=== PATIENT | male | born 1940 | race Caucasian/White ===

== ENCOUNTER 2017-06-11 10:53 | Outpatient (POV) | payer MEDICARE, OTHER, SELFPAY | END 2017-06-11 12:09 | disposition home or self-care (01) | PROVIDERS: Visit Provider Podiatrist | DX: E11.51 Type 2 diabetes mellitus with diabetic peripheral angiopathy without gangrene (principal); L60.0 Ingrowing nail | CPT/HCPCS: 99203; G0127 ==

== ENCOUNTER → 2017-06-26 | Outpatient (POV) | payer MEDICARE, OTHER, SELFPAY | PROVIDERS: Visit Provider Podiatrist ==

== ENCOUNTER 2017-07-15 07:34 | Day surgery (SDC) | payer MEDICARE, OTHER, SELFPAY ==
[2017-07-15] VITALS (24 sets, daily range): BP systolic 112–165; BP diastolic 63–99; PULSE 59–120; RESP 12–23; TEMP 36.1–36.7; O2SAT 93–98; BMI 39.0
--- NOTE | 2017-07-15 07:18 | IR_ITS ---
CARDIAC CATHETERIZATION DATE OF CATHETERIZATION:07/15/2017 2:00 PM PROCEDURES: 1. Left heart catheterization 2. Left ventriculogram 3. Selective coronary angiogram 4. Selective engagement of the left internal mammary artery with angiography 5. Selective engagement of the saphenous vein graft to the diagonal artery with angiography 6. Selective engagement of the saphenous vein graft to the circumflex artery with angiography 7. Bilateral selective renal angiogram 8. Drug-eluting stent deployment into the mid LAD via the left internal mammary artery graft INDICATION FOR TEST: 1. Angina pectoris class III 2. Coronary artery disease 3. History of coronary bypass surgery 4. Acute renal failure creatinine 2.0 5. Severe hypertension suspect renal artery stenosis 6. Renovascular hypertension Informed consent was obtained prior to the procedure. COMPLICATIONS: None ESTIMATED BLOOD LOSS: Less than 10 ml. TECHNIQUE: One percent lidocaine was used to anesthetize the right groin. The right femoral artery was accessed via the Seldinger technique. A 4-Turkish sheath was placed in the right femoral artery. The JL 5 JR4 catheter were used perform diagnostic left heart catheterization left ventriculogram and selective coronary angiogram. The JR4 catheter was used to selectively intubate each saphenous vein graft as well as left internal mammary artery and the bilateral renal arteries. At the end of the diagnostic angiogram the 5 Turkish sheath was exchanged for a 6 Turkish sheath and 12,000 units of heparin was administered intravenously giving an ACT of 363 seconds. A AN guide catheter was used intubate the left internal mammary artery and a choice PT floppy wire was placed into the LAD via the AN graft. A 2.25 x 12 mm resolute [place] stent was deployed at 22 shaq reducing the 99% stenosis to 0%. MERLIN-3 flow was present before and after the procedure. At the end the procedure the sheath was removed gloves were changed and is reprepped good hemostasis was achieved using Perclose device patient transferred to the postop holding area in stable condition. ANGIOGRAPHIC RESULTS: 1. The left main artery normal 2. The left anterior descending artery proximally has 10% luminal irregularities and is occluded after the second septal patient liaison. The first diagonal artery is a medium-size vessel and has 20 and 30% stenoses 3. The circumflex artery is nondominant and has stents in the proximal segment extending into the first obtuse marginal artery. The first obtuse marginal artery is occluded with no competitive flow distally, two additional small obtuse marginal arteries are identified with minimal stenosis 4. The right coronary artery is a large dominant vessel and has proximal 30% mid vessel 20 and 30% stenoses throughout with distal 30% stenoses. 5. The [place]O ventriculogram reveals dilated left ventricle with ejection fraction of 40% 6. The left ventricular end-diastolic pressure 25 mmHg 7. The left internal mammary artery is widely patent to the LAD. Immediately distal to this stenosis is a 99% stenosis 8. The saphenous vein graft to the diagonal artery is ostially occluded 9. The saphenous vein graft to the first obtuse marginal artery has 50% proximal and mid vessel stenoses 10. The left renal artery singular and normal 11. The right renal artery singular and has an ostial 20% stenosis IMPRESSION: 1. Critical disease in the mid LAD immediately distal to the AN anastomosis 2. Moderate left ventricular dilatation with reduced ejection fraction 3. Moderately elevated LVEDP 4. Successful stenting of the mid LAD critical disease reduced to 0% with 1 drug-eluting stent 5. Nonflow limiting bilateral renal artery stenosis PLAN: 1. Aspirin Plavix
[2017-07-15 08:21] LABS: Basophils % 0.4 % (0.1-2.0); Eosinophils # 0.2 K/mm3 (0.0-0.4); Eosinophils % 3.6 % (0.1-12.0); Hematocrit 33.2 % (42.0-52.0); Hemoglobin 10.6 g/dL (14.1-18.0); Lymphocytes # 1.5 K/mm3 (0.7-4.5); Lymphocytes % 34.4 K/mm3 (10-50); Mean Corpuscular HGB Conc 31.8 g/dL (31.8-35.4); Mean Corpuscular Hemoglobin 31.5 pg (27.0-31.2); Mean Platelet Volume 10.4 fl (7.4-10.4); Monocytes # 0.3 K/mm3 (0.1-1.0); Monocytes % 7.6 % (1.7-9.3); Neutrophils # 2.4 K/mm3 (1.8-7.8); Platelet Count 117 K/mm3 (142-424); Red Blood Count 3.35 M/mm3 (4.60-6.20); White Blood Count 4.4 K/mm3 (4.8-10.8)
[2017-07-15 08:30] LABS: Anion Gap 11.8 mEq/L (5-15); Blood Urea Nitrogen 32 mg/dL (7-18); Carbon Dioxide 32 mmol/L (21.0-32.0); Chloride 105 mmol/L (98-107); Creatinine Clearance Estimated 55 mL/min (0-300); Creatinine,Serum 2.03 mg/dL (0.70-1.30); Estimated Glomerular Filt Rate 32 ml/min (>60); GFR (African American) 39 ML/MIN (>60); Glucose 143 mg/dL (74-106); Potassium 3.8 mmoL/L (3.5-5.1); Sodium 145 mmol/L (136-145)
--- NOTE | 2017-07-15 15:38 | SUR.PHASEII ---
Report called to Yessy Arevalo, transported to second floor in stable condition, right femoral site dsg with scant amount of ss drainage noted, no hematoma noted.
--- NOTE | 2017-07-15 15:40 | PC.NURSE ---
PT ARRIVED TO FLOOR, REPORT GIVEN FROM JC IN [facility], VSS, GROIN SITE WITH SMALL SEROUSANGUINOUS DRAINAGE WHICH WAS PRESENT WITH ARRIVAL TO FLOOR, NO CHANGE HAS BEEN NOTED SINCE THAT FIRST ASSESSMENT. PT HAS AMBULATED TO AND FROM BATHROOM WITH NO PROBLEMS NOTED AND TOLERATES WELL. WILL CONTINUE TO MONITOR
[2017-07-15 15:49] LABS: CATHL Activated Clotting Time 362 SEC (74-125)
[2017-07-16] VITALS: BP 128/71; PULSE 67; PULSE 70; RESP 18; O2SAT 90
[2017-07-16 02:00] VITALS: BP 120/69; PULSE 73; O2SAT 90
[2017-07-16 04:00] VITALS: BP 122/63; PULSE 64; TEMP 36.7; O2SAT 92
--- NOTE | 2017-07-16 04:32 | PC.NURSE ---
ASYMPTOMATIC ISREAL CARDIA NOTED X1 AT BEGINNING OF SHIFT, HR DROPPED LOW 38, ONCE TELE ALARMED, RN ASSESSED PT, NO COMPLAINTS STATED AND PT STATED SOMETIMES MY HEART GETS LOW LIKE THAT, IT HAS DONE IT BEFORE. CONTROLLED AFIB NOTED PER TITLE I INSTRUCTIONAL ASSISTANT. R GROIN SITE ASSESSED Q2H, BLOODY DRAINAGE MARKED ON DRESSING FROM DAY SHIFT RN AND NO FURTHER CHANGES NOTED IN DRAINAGE ON DRESSING. NO BRUISING, NO S/S OF INFECTION NOTED ON R GROIN SITE. ON PALPATION OF SITE, SOFT AND NO COMPLAINTS OF TENDERNESS. SKIN IS PINK AND WARM PER PALPATION, PEDAL PULSE NOTED +2 (BILAT), CAP REFILL <3SEC (BLE, BUE). ADEQUATE UO THIS SHIFT. CPAP FROM HOME USED WHILE ASLEEP AND TOLERATED WELL. VSS. WILL CONTINUE TO MONITOR.
[2017-07-16 06:00] VITALS: BP 146/82; PULSE 93; RESP 18; O2SAT 92
[2017-07-16 07:27] LABS: Anion Gap 10.8 mEq/L (5-15); Blood Urea Nitrogen 26 mg/dL (7-18); Carbon Dioxide 30 mmol/L (21.0-32.0); Chloride 107 mmol/L (98-107); Creatinine Clearance Estimated 62 mL/min (0-300); Estimated Glomerular Filt Rate 37 ml/min (>60); GFR (African American) 44 ML/MIN (>60); Glucose 117 mg/dL (74-106); Potassium 3.8 mmoL/L (3.5-5.1); Sodium 144 mmol/L (136-145)
--- NOTE | 2017-07-16 07:32 | PC.NURSE ---
REPORT GIVEN TO LISSETTE RN
--- NOTE | 2017-07-16 09:16 | PC.NURSE ---
PT DC, SCOTTIE DID DC INSTRUCTIONS, MYSELF REMOVED A 20 G ANGIOCATH IV FROM LEFT AC, PT TOLERATED WELL. DENIES ANY ISSUES AT THIS TIME.
--- NOTE | 2017-07-23 10:59 | PC.NURSE ---
post procedure call made, pt states he has already had f/u appt and is doing ok, denies any questions/concerns at this time
== END 2017-07-16 09:16 | disposition admitted as inpatient to this hospital (09) ==
LOC: CATHLAB 07:36
PROVIDERS: PCP Family Medicine; Visit Provider Internal Medicine
DX: I25.119 Atherosclerotic heart disease of native coronary artery with unspecified angina pectoris (principal); Z95.1 Presence of aortocoronary bypass graft; N17.9 Acute kidney failure, unspecified; I15.0 Renovascular hypertension; I70.1 Atherosclerosis of renal artery
CPT/HCPCS: 36252; 36415; 80048; 85025; 85347; 92928; 93459; 99152; 99153; C1725; C1760; C1769; C1876; C1894; C9600; J1644; Q9967

== ENCOUNTER → 2017-07-21 14:02 | Outpatient (CLI) | payer MEDICARE, OTHER, SELFPAY ==
[2017-07-21 15:22] LABS: Blood Urea Nitrogen 29 mg/dL (7-18); Carbon Dioxide 31 mmol/L (21.0-32.0); Chloride 104 mmol/L (98-107); Creatinine,Serum 2.19 mg/dL (0.70-1.30); Estimated Glomerular Filt Rate 29 ml/min (>60); GFR (African American) 35 ML/MIN (>60); Glucose 145 mg/dL (74-106); Sodium 144 mmol/L (136-145)
== END ==
PROVIDERS: PCP Family Medicine; Visit Provider Internal Medicine
DX: R06.00 Dyspnea, unspecified (principal); R06.09 Other forms of dyspnea; I25.118 Atherosclerotic heart disease of native coronary artery with other forms of angina pectoris; N18.2 Chronic kidney disease, stage 2 (mild); I50.23 Acute on chronic systolic (congestive) heart failure
CPT/HCPCS: 36415; 80048; 83880

== ENCOUNTER → 2017-08-03 09:26 | Outpatient (CLI) | payer MEDICARE, OTHER, SELFPAY ==
[2017-08-03 12:03] LABS: Anion Gap 14.6 mEq/L (5-15); Blood Urea Nitrogen 37 mg/dL (7-18); Carbon Dioxide 32 mmol/L (21.0-32.0); Chloride 104 mmol/L (98-107); Creatinine,Serum 2.02 mg/dL (0.70-1.30); Estimated Glomerular Filt Rate 32 ml/min (>60); GFR (African American) 39 ML/MIN (>60); Glucose 133 mg/dL (74-106); Potassium 3.6 mmoL/L (3.5-5.1); Sodium 147 mmol/L (136-145)
== END ==
PROVIDERS: PCP Family Medicine; Visit Provider Internal Medicine
DX: I50.23 Acute on chronic systolic (congestive) heart failure (principal)
CPT/HCPCS: 36415; 80048

== ENCOUNTER 2017-08-20 08:10 | Day surgery (SDC) | payer MEDICARE, OTHER, SELFPAY ==
[2017-08-20] VITALS (9 sets, daily range): BP systolic 112–142; BP diastolic 62–88; PULSE 91–121; RESP 16–18; TEMP 36.3–36.8; O2SAT 93–97; BMI 38.3
--- NOTE | 2017-08-20 10:58 | P.PN_ITS ---
[facility] Anesthesia Checklist - Structural Data Admitted From: Home Planned Operative Procedure/s: pacemaker Consent for Planned Operative Procedure(s) Verified: Yes Verified Documents: Surgical Consent - Airway Assessment C-Spine Mobility Assessed: Yes TMJ Mobility Assessed: Yes Dentition: Dentures-good fit - Anesthesia Plan Anesthesia Risk discussed: Yes Anesthesia Plan: Verified ASA Class: III Anesthesia Type: [facility] Anesthesia HX Medical History: Reports:: Atrial Fibrillation, Cancer (SKIN), Congestive Heart Failure, Coronary Artery Disease, Diabetes Mellitus Type 2, Hyperlipidemia, Hypertension, MRSA (KNEE), Renal Disease Denies:: Diabetes Mellitus Type 1, Internal Pacemaker, Seizures Other Medical History: Reports: Cataracts. Denies: Blood Transfusion Reaction Laterality Cases: Right: Total Knee Replacement (x4), Bilateral: Arthroscopy Knee Other Surgeries: Yes: Open Heart Surgery, Skin Cancer Excision, Other. No: Pacemaker Amputation: No Fractures: No *Family Hx:: Heart Attack, Hypertension
--- NOTE | 2017-08-20 12:05 | SUR.PREOP ---
PATIENT ASSISTED TO BATHROOM AND RETURNED TO BED. PATIENT STABLE NO COMPLAINTS AT THIS TIME.
--- NOTE | 2017-08-20 13:41 | XR_ITS ---
XR chest portable HISTORY: ITS.REASON: pacemaker placement ORDERING PHYSICIAN: Dennis Avina MD PATIENT AGE: 77 years COMPARISON: 12/01/2016 FINDINGS: There is been insertion of a bipolar pacer from left subclavian approach in good position. No evidence of pneumothorax. There is cardiomegaly in this patient that has had a prior CABG. Patchy density is present in the right upper lobe and may be due to an area of pneumonia or atelectasis. IMPRESSION: 1. Satisfactory pacemaker placement without evidence of complication. 2. Atelectasis or infiltrate in the right upper lobe
--- NOTE | 2017-08-20 16:16 | SUR.OPER ---
1320: pt synchronized cardioversion at 200 joules
[2017-09-03 14:55] LABS: POC Glucose,Bedside 126 mg/dL (70-110)
--- NOTE | 2017-09-09 12:08 | HMH.PACER ---
[facility] Pacemaker - Pacemaker Placement Date of Procedure:: 08/20/17 Time of Procedure:: 09:00 Procedure Performed:: 1. Pocket formation for permanent pacemaker 2. Placement of atrial sensing and pacing lead into the right atrial appendage 3. Placement of ventricular sensing and pacing lead into the right ventricular apex 4. Placement of permanent dual chamber pacemaker Preoperative Diagnosis:: Symptomatic Bradycardia Complications:: None Estimated Blood Loss (ml): 10 Technique:: 1% Lidocaine with epinephrine used to anesthetize the left anterior aspect of the chest.Scalpel was used to make the initial cutaneous incision while electrocautery was used to dissect down into the fascia. The fascia was lifted off the pectoralis muscle and digitally manipulated creating a pocket for the pacemaker. The patient was then placed in Trendelenburg position and the subclavian vein was accessed via the Selinger technique. A 7 Romansh sheath was placed under fluoroscopic guidance into the subclavian vein. Following this, an additional wire was placed into the sheath. Now, with two wires inside the 7 Romansh sheath, this sheath was removed, maintaining the two wires in the subclavian vein. The sheath and dilator was then placed over one of the wires while keeping the other wire in place within the subclavian vein. The dilator was removed from the sheath. Using fluoroscopic guidance, the ventricular lead was placed into the right ventricular apex, screwed and secured into place. Electronic interrogation proved acceptable thresholds and voltage within the lead. Using 3-0 silk, the ventricular lead was then secured into place. Lead was secured to the fascia using the 3-0 silk. Following this, the sheath was pealed away. An additional 7 Romansh fresh sheath and dilator was placed over the existing wire. Using fluoroscopic guidance, the atrial lead was then placed into the right atrial appendage and screwed and secured in place. Electrical interrogation demonstrated acceptable thresholds and voltage numbers. The atrial lead was then secured into place using 3-0 silk and then the lead was finally secured to the fascia. With both the atria and ventricular leads in place with acceptable thresholds and sensitivity, the atrial and ventricular leads were placed into the pacemaker generator. Pacemaker generator was then secured to the fascia using 3-0 silk. 1 gram of Ancef was used to flush the pocket. Following the pacemaker being secured to the fascia and in place, Monocryl was used to close the subcutaneous layers while suzie were used to close the cutaneous layer. A pressure dressing was placed and the patient was transferred to the postop holding area in stable condition for postoperative care. - Interrogation Narrative: P wave measures .5-1.0 AF ( cardioversion) with an lead impedance 410 R wave measures 7-8 mV with a lead impedance 560 ohms and threshold of .5 and pulse width .4 ms DDDR mode with base tracking of 70 and maximum track of 110 Generator model number [id number] serial number [id number] Atrial lead model number [id number] serial number [id number] Ventricular lead model number [id number] serial number [id number] Impression:: 1. Successful pocket formation for permanent pacemaker 2. Successful placement of atrial sensing and pacing lead into the right atrial appendage 3. Successful placement of ventricular sensing and pacing lead into the right ventricular apex 4. Successful placement of permanent dual chamber pacemaker Plan: Postoperative wound care
--- NOTE | 2017-09-09 12:12 | P.PCN_ITS ---
[facility] Pacemaker - Pacemaker Placement Date of Procedure:: 08/20/17 Time of Procedure:: 09:00 Procedure Performed:: 1. Pocket formation for permanent pacemaker 2. Placement of atrial sensing and pacing lead into the right atrial appendage 3. Placement of ventricular sensing and pacing lead into the right ventricular apex 4. Placement of permanent dual chamber pacemaker Preoperative Diagnosis:: Symptomatic Bradycardia Complications:: None Estimated Blood Loss (ml): 10 Technique:: 1% Lidocaine with epinephrine used to anesthetize the left anterior aspect of the chest.Scalpel was used to make the initial cutaneous incision while electrocautery was used to dissect down into the fascia. The fascia was lifted off the pectoralis muscle and digitally manipulated creating a pocket for the pacemaker. The patient was then placed in Trendelenburg position and the subclavian vein was accessed via the Selinger technique. A 7 Chinese sheath was placed under fluoroscopic guidance into the subclavian vein. Following this, an additional wire was placed into the sheath. Now, with two wires inside the 7 Chinese sheath, this sheath was removed, maintaining the two wires in the subclavian vein. The sheath and dilator was then placed over one of the wires while keeping the other wire in place within the subclavian vein. The dilator was removed from the sheath. Using fluoroscopic guidance, the ventricular lead was placed into the right ventricular apex, screwed and secured into place. Electronic interrogation proved acceptable thresholds and voltage within the lead. Using 3-0 silk, the ventricular lead was then secured into place. Lead was secured to the fascia using the 3-0 silk. Following this, the sheath was pealed away. An additional 7 Chinese fresh sheath and dilator was placed over the existing wire. Using fluoroscopic guidance, the atrial lead was then placed into the right atrial appendage and screwed and secured in place. Electrical interrogation demonstrated acceptable thresholds and voltage numbers. The atrial lead was then secured into place using 3-0 silk and then the lead was finally secured to the fascia. With both the atria and ventricular leads in place with acceptable thresholds and sensitivity, the atrial and ventricular leads were placed into the pacemaker generator. Pacemaker generator was then secured to the fascia using 3-0 silk. 1 gram of Ancef was used to flush the pocket. Following the pacemaker being secured to the fascia and in place, Monocryl was used to close the subcutaneous layers while suzie were used to close the cutaneous layer. A pressure dressing was placed and the patient was transferred to the postop holding area in stable condition for postoperative care. - Interrogation Narrative: P wave measures .5-1.0 AF ( cardioversion) with an lead impedance 410 R wave measures 7-8 mV with a lead impedance 560 ohms and threshold of .5 and pulse width .4 ms DDDR mode with base tracking of 70 and maximum track of 110 Generator model number [id number] serial number [id number] Atrial lead model number [id number] serial number [id number] Ventricular lead model number [id number] serial number [id number] Impression:: 1. Successful pocket formation for permanent pacemaker 2. Successful placement of atrial sensing and pacing lead into the right atrial appendage 3. Successful placement of ventricular sensing and pacing lead into the right ventricular apex 4. Successful placement of permanent dual chamber pacemaker Plan: Postoperative wound care
== END 2017-08-20 16:15 | disposition home or self-care (01) ==
PROVIDERS: PCP Family Medicine; Visit Provider Internal Medicine
DX: I48.92 Unspecified atrial flutter (principal); I11.0 Hypertensive heart disease with heart failure; I50.23 Acute on chronic systolic (congestive) heart failure; E11.9 Type 2 diabetes mellitus without complications; I48.2 Chronic atrial fibrillation
CPT/HCPCS: 33208; 71045; 82962; 96374; C1785; C1898

== ENCOUNTER → 2017-09-02 09:54 | Outpatient (CLI) | payer MEDICARE, OTHER, SELFPAY ==
--- NOTE | 2017-09-02 10:04 | CA_ITS ---
PROCEDURE: 2-D M-mode and color Doppler study INDICATIONS FOR THE TEST: Chest pain COPD+ Heart Murmur+ Tobacco Smoking Palpitations+ Fatigue+ Syncope Edema Hypertension+Diabetes Mellitus+ Rheumatic Fever SOB MARTINS+Obesity+Hyperlipidemia+ Family History HD Additional History afib, CAD, CHF, tachycardia, PAD, DAVID, RBBB, Pacemaker PATIENT INFORMATION HEIGHT: 71 WEIGHT: 280 GENDER: Male B/P: 117/73 2-D/M-MODE INTERPRETATION: 2-D MEASUREMENTS OBSERVED VALUES IN CMS Right Ventricular Dimension (RVDd) 2.6 Interventricular Septum (Thickness)(IVsd) 1.0 Left Ventricular Internal Dimensions(LVIDd) 7.1 Left Ventricular Posterior Wall (Thickness)(LVPWd) 1.2 Aortic Root 2.9 Aortic Cusp Separation 2.0 Left Atrial Dimensions (LAD) 6.6 2D 1. Left atrium is moderately enlarged, left ventricle is mildly dilated, there is mild concentric left ventricular hypertrophy, visually estimated ejection fraction proximally 40%, left ventricle appears to be globally hypokinetic, endocardial surfaces are poorly visualized. 2. The right atrium is moderately enlarged, right ventricle is mildly dilated with normal contractility, there is a pacemaker lead seen in the right atrium and right ventricle. 3. The aortic valve is minimally thickened and fibrosed. 2. The mitral and tricuspid valve leaflets are minimally thickened. 5. The pulmonic valve is poorly visualized. 6. No significant pericardial effusion. DOPPLER INTERROGATION: Doppler interrogation of the aortic, mitral and tricuspid valve is presence of trace aortic, moderate mitral and tricuspid regurgitation, tricuspid regurgitant jet velocity insufficient for calculation of the right ventricular systolic pressure. CONCLUSION: 1. Technically difficult study because of the patient's factor and poor acoustic windows 2. Moderate biatrial enlargement, mildly dilated left ventricle, mild concentric left ventricular hypertrophy, visually estimated ejection fraction approximately 40%, left ventricle is globally hypokinetic, endocardial surfaces are poorly visualized, superimposed segmental wall motion abnormalities cannot be excluded. 3. Trace aortic, moderate mitral and tricuspid regurgitation 4. No significant pericardial effusion noted.
== END ==
PROVIDERS: PCP Family Medicine; Visit Provider Internal Medicine
DX: I50.23 Acute on chronic systolic (congestive) heart failure (principal); R00.0 Tachycardia, unspecified; I70.1 Atherosclerosis of renal artery; I73.9 Peripheral vascular disease, unspecified; I48.2 Chronic atrial fibrillation; Z95.0 Presence of cardiac pacemaker; I45.10 Unspecified right bundle-branch block; I25.10 Atherosclerotic heart disease of native coronary artery without angina pectoris; I11.0 Hypertensive heart disease with heart failure; E78.4 Other hyperlipidemia; E11.9 Type 2 diabetes mellitus without complications
CPT/HCPCS: 93306

== ENCOUNTER → 2017-10-12 14:26 | Outpatient (POV) | payer MEDICARE, OTHER, SELFPAY | PROVIDERS: PCP Family Medicine; Visit Provider Nurse Practitioner Acute Care | DX: Z00.00 Encounter for general adult medical examination without abnormal findings (principal) ==

== ENCOUNTER 2017-10-25 10:38 | Observation (INO) ==
[2017-10-25 11:19] LABS: Basophils % 0.5 % (0.1-2.0); Eosinophils # 0.1 K/mm3 (0.0-0.4); Eosinophils % 1.2 % (0.1-12.0); Hematocrit 33.4 % (42.0-52.0); Hemoglobin 10.3 g/dL (14.1-18.0); Lymphocytes # 1.1 K/mm3 (0.7-4.5); Lymphocytes % 22.6 K/mm3 (10-50); Mean Corpuscular HGB Conc 30.7 g/dL (31.8-35.4); Mean Corpuscular Hemoglobin 31.4 pg (27.0-31.2); Mean Platelet Volume 9.9 fl (7.4-10.4); Monocytes # 0.4 K/mm3 (0.1-1.0); Monocytes % 8.4 % (1.7-9.3); Neutrophils # 3.2 K/mm3 (1.8-7.8); Neutrophils % 67.4 % (37.0-80.0); Platelet Count 179 K/mm3 (142-424); Red Blood Count 3.28 M/mm3 (4.60-6.20); Red Cell Distribution Width 14.2 % (11.5-17.5); White Blood Count 4.7 K/mm3 (4.8-10.8)
[2017-10-25 11:26] LABS: INR 1.19 (0.9-1.1); Prothrombin Time 12.9 seconds (9.4-11.8)
[2017-10-25 11:30] LABS: Albumin Level 3.6 gm/dL (3.4-5.0); Albumin/Globulin Ratio 0.9 (1.1-1.8); Anion Gap 13.3 mEq/L (5-15); Bilirubin,Total 0.4 mg/dL (0.2-1.0); Calcium 9.2 mg/dL (8.5-10.1); Globulin 3.9 gm/dl (1.3-3.2); Potassium 4.3 mmoL/L (3.5-5.1); Total Protein,Serum 7.5 gm/dL (6.4-8.2)
--- NOTE | 2017-10-25 11:56 | Emergency Department Note ---
ED Disposition Clinical Impression: Hypoxia Community acquired pneumonia Qualifiers: Laterality: right Lung location: upper lobe of lung Qualified Code(s): J18.1 - Lobar pneumonia, unspecified organism Disposition: Still a Patient Condition on Discharge: Fair Referrals: Edy Dhillon MD [Primary Care Provider] - - Critical Care Critical Care Time: No Attestation: On 10/25/17, the high probability of a clinically significant, sudden or life threatening deterioration of the following system(s) required my full and direct attention, intervention and personal management. The time I documented below is in addition to time spent performing reported procedures but includes the following listed in this critical care notation. Medical Decision Making - Jarek Inquiry Pt receiving controlled substance: No Vital Signs: 10/25/17 10:39 10/25/17 11:39 Temperature 98.2 F Temperature Source Oral Pulse Rate [Left Radial] 82 83 Respiratory Rate 20 18 Blood Pressure [Right Arm] 121/69 121/73 Blood Pressure Mean [Right Arm] 86 89 Blood Pressure Source [Right Arm] Automatic Cuff Blood Pressure Position [Right Arm] Sitting 02 Sat by Pulse Oximetry 100 100 Oxygen Delivery Method Nasal Cannula Nasal Cannula Oxygen Flow Rate (LPM) 4 4 - Lab Data Lab Results 10/25/17 11:00: WBC 4.7 L, RBC 3.28 L, Hgb 10.3 L, Hct 33.4 L, MCV 102.0 H, MCH 31.4 H, MCHC 30.7 L, RDW 14.2, Plt Count 179, MPV 9.9, Neut % (Auto) 67.4, Lymph % (Auto) 22.6, [place] % (Auto) 8.4, Eos % (Auto) 1.2, Baso % (Auto) 0.5, Neut # (Auto) 3.2, Lymph # (Auto) 1.1, [place] # (Auto) 0.4, Eos # (Auto) 0.1, Baso # (Auto) 0.0 10/25/17 11:00: Sodium 141, Potassium 4.3, Chloride 102, Carbon Dioxide 30, Anion Gap 13.3, BUN 26 H, Creatinine 1.98 H, Estimated Creat Clear 54, Estimated GFR 33 L, Est GFR ( Amer) 40 L, Glucose 220 H, Calcium 9.2, Total Bilirubin 0.4, AST 11 L, ALT 15, Alkaline Phosphatase 58, Total Protein 7.5, Albumin 3.6, Globulin 3.9 H, Albumin/Globulin Ratio 0.9 L 10/25/17 11:00: PT 12.9 H, INR 1.19 H 10/25/17 11:00: B-Natriuretic Peptide 791 H 10/25/17 11:50: Urine Color Yellow, Urine Appearance Clear, Urine pH 5.0, Ur Specific [place] 1.015, Urine Protein Negative, Urine Glucose (UA) Negative, Urine Ketones Negative, Urine Blood Negative, Urine Nitrate Negative, Urine Bilirubin Negative, Urine Urobilinogen 0.2, Ur Leukocyte Esterase Negative, Urine WBC Occasional, Ur Squamous Epith Cells Occasional, Urine Bacteria 1+ Result diagrams: 10/25/17 11:00 10/25/17 11:00 Orders (Tests/Meds): ED MEDICATIONS Generic Name Dose Route Start Last Admin Trade Name Freq PRN Reason Stop Dose Admin Sodium Chloride 3 ml 10/25/17 12:47 Sodium Choride 3ml Neb Soln IH 10/25/17 12:48 ONCE ONE ORDERS Category Date Time Status Lactic Acid Stat Lab 10/25/17 12:47 Ordered Sputum Culture & Gram Stain Stat Micro 10/25/17 12:47 Ordered Wound Culture and Gram Stain Stat Micro 10/25/17 12:47 Ordered - Radiology Data #1 Image(s): Chest Image Reviewed: Yes I have reviewed radiologist's interpretation Ill-defined opacity in the right suprahilar region extending to the right upper lobe suggesting focal pneumonic infiltrate. Slight lateral elevation of the right hemidiaphragm could be a subpulmonic pleural effusion. Left lung field is clear. Mild cardiomegaly. Prior CABG. Pacemaker with 3 electrodes. - ECG Data Tracing #1 EKG interpreted by Tod Conner MD: Rhythm: Ventricular paced rhythm Rate: 81 Single PVC No evidence of acute ischemia or injury Medical Decision Narrative: 12:40 PM: I have discussed the case with Dr. Stanley for Dr. Dhillon who agrees to admit the patient to the hospital. We discussed the patient's clinical information, including history, exam, laboratory and radiology results and ED course. Per hospital procedure, I will write temporary bridge inpatient orders on the patient. Specific orders requested by the admitting physician: Accurate ED weight. Usual dose of torsemide. Rocephin and Zithromax. Consult cardiology regarding pacemaker site. Ruptured vesicle and culture. General Adult HPI - General Chief complaint: Shortness of Breath/Dyspnea Stated complaint: Bloody pace maker,difficulty breathing Time Seen by Provider: 10/25/17 11:55 Mode of Arrival: Ambulatory Limitations: No Limitations Description of Symptoms (Recalled from ER Triage Doc. by RN): Had a pacemaker put in and developed a hematoma last thursday and was drained then but has since came back. Today he is feeling SOA, O2 was 87 % on arrival - History of Present Illness HPI narrative: Had a pacemaker placed 3 weeks ago. Developed a hematoma around the pacemaker and had bleeding last Thursday 8 days ago. States he was seen at the urgent treatment center. Nursing notes today state that he had the hematoma drained, but patient and deny this to me. Has been changing bandages since then and has not had any bleeding until last night, when the bleeding recurred. stated when she went to change the bandage today she noticed blisters over the incision site and therefore did not change the bandage. Also complains of shortness of breath today. States that he only took 1 pill of torsemide a day instead of his usual 2 for the past 3 days because he had so much to do and did not want to be urinating as much. Denies any change in the amount of swelling of his legs. He does have a history of congestive heart failure. His also feels like he had a fever yesterday, temperature not taken. Complains of a cough for 3 days with clear to yellow sputum. Was seen by field care coordinator on Thursday and by his primary care physician on . Called to Dr. stanley today. Was advised to take an extra dose of torsemide, which he did, but has not had any increase in urination and does not feel any better. - Related Data Home Medications Medication Instructions Recorded Confirmed isosorbide mononitrate ER 120 mg 120 mg PO QAM 07/10/17 10/17/17 tablet,extended release 24 hr polyethylene glycol 3350 17 gram 17 g PO QDAY PRN 07/10/17 10/17/17 oral powder packet cholecalciferol (vitamin D3) 1,000 1,000 unit PO ONCE 07/14/17 10/17/17 unit capsule cyanocobalamin (vit B-12) 1,000 1,000 mcg PO QDAY 07/14/17 10/17/17 mcg tablet eplerenone 25 mg tablet 25 mg PO QDAY tab 07/14/17 10/17/17 pioglitazone 15 mg-metformin 850 1 tab PO BID 07/14/17 10/17/17 mg tablet clopidogrel 75 mg tablet 75 mg PO ONCE 07/20/17 10/17/17 lansoprazole 30 mg delayed 30 mg PO QHS 09/29/17 10/17/17 release,disintegrating tablet dilTIAZem HCl [Diltiazem 240mg 240 mg PO ONCE 10/02/17 10/17/17 24Hr ER Cap] Aspirin [Aspir 81] 81 mg PO DAILY 10/17/17 10/17/17 Rivaroxaban [Xarelto 15mg tablet] 15 mg PO DAILY 10/17/17 10/17/17 Terazosin HCl [Hytrin 1mg Capsule] 1 mg PO DAILY 10/17/17 10/17/17 Torsemide [Demadex] 40 mg PO QDAY 10/17/17 10/17/17 Previous Rx's Medication Instructions Recorded metoprolol tartrate 50 mg tablet 50 mg PO BID #60 tab 08/27/17 Allergies Allergy/AdvReac Type Severity Reaction Status Date / Time apixaban [From ELIQUIS] Allergy Mild I-RASH Verified 10/22/17 10:51 doxycycline [DOXYCYCLINE] Allergy Mild MCINTYRE Verified 10/22/17 10:51 SKIN, BLISTERS insulin aspart Allergy Mild I-RASH Verified 10/22/17 10:51 [INSULIN ASPART] Insulins Allergy Mild Verified 10/22/17 10:51 latex [LATEX] Allergy Mild I-RASH Verified 10/22/17 10:51 lovastatin [LOVASTATIN] Allergy Mild I-RASH Verified 10/22/17 10:51 oxycodone [From PERCOCET] Allergy Mild I-RASH Verified 10/22/17 10:51 pantoprazole [From PROTONIX] Allergy Mild I-RASH Verified 10/22/17 10:51 pioglitazone Allergy Mild I-RASH Verified 10/22/17 10:51 [From ACTOPLUS MET] sulfamethoxazole Allergy Mild I-RASH Verified 10/22/17 10:51 [From SEPTRA] trimethoprim [From SEPTRA] Allergy Mild I-RASH Verified 10/22/17 10:51 ferrous gluconate AdvReac Rash Verified 10/22/17 10:51 [facility] History I have reviewed the patient's past medical history: Yes Medical History: Reports:: Atrial Fibrillation, Cancer, Congestive Heart Failure , Coronary Artery Disease, Diabetes Mellitus Type 2, Gastroesophageal Reflux Disease(GERD), Hyperlipidemia, Hypertension, Internal Pacemaker, MRSA, Renal Disease Denies:: Cerebrovascular Accident, Diabetes Mellitus Type 1, Myocardial Infarction, Seizures Other Medical History: Reports: Cataracts. Denies: Blood Transfusion Reaction Laterality Cases: Bilateral: Arthroscopy Knee Other Surgeries: Yes: CABG (x3), Coronary Stent (x5), Hernia Repair, Open Heart Surgery, Pacemaker, Skin Cancer Excision, Other (circumcision,cataract removal, plastic sx on face) Amputation: No Fractures: No Comment: open heart surgery, and 7 stents placed - Social History Smoking Status: Never smoker Alcohol Intake: never Alcohol Intake Frequency:: other Occupational Status: retired Housing: house Household Members: spouse - Psychiatric History Expresses thoughts of harming self/others: None Suicide Plan Description: No Plan Family Hx:: Heart Attack, Hypertension ROS Obtained: Yes All systems reviewed & no additional complaints - Constitutional Constitutional: Reports fever(s) (subjective) - Cardiovascular Cardiovascular: Denies chest pain, Reports leg edema (Chronic) - Respiratory Respiratory: Yes dyspnea Physical Exam - General General appearance: alert, in no apparent distress - Head Head exam: atraumatic, normocephalic, normal inspection - Eye Eye exam: Present: normal appearance, PERRL, EOMI - ENT ENT exam: Present: normal exam, normal oropharynx, mucous membranes moist, TM's normal bilaterally, normal external ear exam - Neck Neck exam: Present: normal inspection, full ROM, trachea midline. Absent: meningismus, lymphadenopathy - Chest Chest inspection: Present: normal inspection, symmetric chest wall rise, tenderness, other (Pacemaker site left upper chest. 10 cm diameter hematoma. 2 vesicles each 2 cm over incision, appear to have serosanguineous fluid. No erythema.) - Respiratory Respiratory exam: Present: normal lung sounds bilaterally. Absent: respiratory distress - Cardiovascular Cardiovascular exam: Present: regular rate, normal rhythm. Absent: JVD - Abdominal Exam Abdominal exam: Present: soft, normal bowel sounds. Absent: distention, tenderness, guarding - Extremities Exam Extremities exam: Present: normal inspection, full ROM, normal capillary refill , other (2+ pretibial edema bilateral) - Back Exam Back exam: Present: normal inspection. Absent: tenderness - Neurological Exam Neurological exam: Present: alert, oriented X3 - Psychiatric Psychiatric exam: Present: normal affect, normal mood - Skin Skin exam: Present: warm, dry, intact, normal color - Lymphatic Lymphatic Findings: no adenopathy
[2017-10-25 12:22] LABS: Microscopic, Urine URINE MICROSCOPIC (MICROSCOPIC)
[2017-10-25 12:23] LABS: Appearance,Urine CLEAR (Clear); Bilirubin,Urine Negative (Negative); Blood, Urine Negative (Negative); Color,Urine YELLOW (Yellow); Glucose,Urine (UA) Negative (Negative); Ketones,Urine Negative (Negative); Leukocyte Esterase,Urine Negative (Negative); Protein,Urine Negative (Negative); Specific Gravity, Urine 1.015 (1.005-1.030); Urobilinogen,Urine 0.2 EU/dl (0.2)
[2017-10-25 12:33] LABS: Bacteria,Urine 1+ /lpf; Squamous Epithelial Cell,Urine Occasional #/hpf (0-5); WBC,Urine Occasional #/hpf (0-3)
--- NOTE | 2017-10-25 14:45 | Progress Note ---
Internal Medicine - PN: Subj *Date: 10/25/17 *Time: 14:42 Interval history: Mr. Hernadez presented in the emergency room with shortness of breath. He had spoken with Dr. garcia prior to his presentation in the emergency room. Dr. garcia encouraged him to take an extra torsemide. The patient had recently had a pacemaker placed and had developed a hematoma in the pacemaker pocket. This is been ongoing problem and he has been followed for that by Dr. Avina and also seen by Dr. Dhillon. He does still have the hematoma evident. Dr. Rachel drained 2 blister sites in the emergency room. Exam Vital signs and Labs for Last 24 Hours: Temp Pulse Resp BP Pulse Ox 98.3 F 82 20 122/73 98 10/25/17 14:37 10/25/17 14:37 10/25/17 14:37 10/25/17 14:37 10/25/17 14:37 I & O for Last 24 hours: Intake & Output 10/23/17 10/24/17 10/25/17 10/26/17 11:59 11:59 11:59 11:59 Weight 282 lb 6 oz - Constitutional no acute distress - Routine Chest/Breast/Axilla Exam Comments: There is a significant hematoma at the pacemaker battery site. This may need to be drained. - *Routine Respiratory Exam Present: decreased breath sounds Comments: A few bilateral rales. - *Routine Cardiovascular Exam Present: RRR - *Routine Abdominal Exam Present: soft. Absent: tenderness - *Routine Extremities Exam Comments: 1+ edema - *Routine Neurological Exam Present: alert, oriented X3 Assessment and Plan (1) Hematoma of pacemaker pocket Current visit: Yes Status: Acute Category: Medical Code(s): T82.837A - Hemorrhage due to cardiac prosthetic devices, implants and grafts, initial encounter (2) Community acquired pneumonia Current visit: Yes Status: Acute Qualifiers: Laterality: right Lung location: upper lobe of lung Qualified Code(s): J18.1 - Lobar pneumonia, unspecified organism Category: Medical Code(s): J18.9 - Pneumonia, unspecified organism (3) Congestive heart failure Current visit: Yes Status: Acute Category: Medical Code(s): I50.9 - Heart failure, unspecified - Assessment and plan all Dx Assessment and Plan for all problems:: See orders. Cardiac consult.
[2017-10-26 06:06] LABS: Anion Gap 10.6 mEq/L (5-15); Potassium 4.6 mmoL/L (3.5-5.1)
--- NOTE | 2017-10-26 07:43 | Pharmacy Consult Notes ---
[facility] Pharmacy VTE Monitoring - Patient Demographics Admission date: 10/25/17 Report Date: 10/26/17 Time: 07:42 Allergies/Adverse Reactions: Patient Allergies apixaban [From ELIQUIS] Allergy (Mild, Verified 10/22/17 10:51) I-RASH doxycycline [DOXYCYCLINE] Allergy (Mild, Verified 10/22/17 10:51) MCINTYRE SKIN, BLISTERS insulin aspart [INSULIN ASPART] Allergy (Mild, Verified 10/22/17 10:51) I-RASH Insulins Allergy (Mild, Verified 10/22/17 10:51) latex [LATEX] Allergy (Mild, Verified 10/22/17 10:51) I-RASH lovastatin [LOVASTATIN] Allergy (Mild, Verified 10/22/17 10:51) I-RASH oxycodone [From PERCOCET] Allergy (Mild, Verified 10/22/17 10:51) I-RASH pantoprazole [From PROTONIX] Allergy (Mild, Verified 10/22/17 10:51) I-RASH pioglitazone [From ACTOPLUS MET] Allergy (Mild, Verified 10/22/17 10:51) I-RASH sulfamethoxazole [From SEPTRA] Allergy (Mild, Verified 10/22/17 10:51) I-RASH trimethoprim [From SEPTRA] Allergy (Mild, Verified 10/22/17 10:51) I-RASH ferrous gluconate Adverse Reaction (Verified 10/22/17 10:51) Rash Height: 1.8 m Weight: 127.573 kg Patient Problems: Current Active Problems (Last Updated 07/14/17 @ 10:37 by Nicolasa Barth RN) Community acquired pneumonia (Acute) Hypoxia (Acute) Hematoma of pacemaker pocket (Acute) Congestive heart failure (Acute) - VTE Risk Labs: VTE Related Lab Results Hgb 10.3 g/dL (14.1-18.0) L 10/25/17 11:00 Hct 33.4 % (42.0-52.0) L 10/25/17 11:00 Plt Count 179 K/mm3 (142-424) 10/25/17 11:00 PT 12.9 seconds (9.4-11.8) H 10/25/17 11:00 INR 1.19 (0.9-1.1) H 10/25/17 11:00 BUN 25 mg/dL (7-18) H 10/26/17 05:50 Creatinine 1.91 mg/dL (0.70-1.30) H 10/26/17 05:50 Estimated Creat Clear 57 mL/min (0-300) 10/26/17 05:50 VTE Score: 5 VTE Risk Level: Low Risk - Prophylaxis VTE Prophylaxis Ordered?: Yes Types of VTE Prophylaxis: TEDS Knee High, Pharmacological Location of Applied Device: Bilateral Lower Extremeties Pharmacologic Type: Other (XARELTO) - VTE Diagnosis Confirmed Treatment or plan recommended: Continue Current Treatment
--- NOTE | 2017-10-26 07:57 | Consult Report ---
History of Present Illness Consult date: 10/26/17 Requesting physician: Bere Stanley Chief complaint: Shortness of breath, bleeding at pacemaker site Additional Medical History:: 1. Symptomatically bradycardia chronic atrial fibrillation A. Permanent pacemaker placement early 2017 2. Type 2 diabetes mellitus 3. Chronic kidney disease stage III 4. Obesity 5. Coronary artery disease previous bypass surgery. A. [facility], 07/2017, Critical disease in the mid LAD immediately distal to the AN anastomosis. Moderate left ventricular dilatation with reduced ejection fraction. Moderately elevated LVEDP. Successful stenting of the mid LAD critical disease reduced to 0% with 1 drug-eluting stent. Nonflow limiting bilateral renal artery stenosis. B. Discontinue aspirin and Plavix, 10/2017 due to recurrent hematoma at pacemaker site. 6. Anemia with recurrent GI bleed A. Will discontinue Xarelto and consider left atrial appendage ligation due to chronic atrial fibrillation. History of present illness: 77-year-old white male with known coronary artery disease, type 2 diabetes mellitus, hypertension, hyperlipidemia was admitted through the emergency department for recurrent shortness of breath along with bleeding from recent pacemaker incision site. Chest x-ray reveals developing pneumonia for which the patient is now on antibiotics. Patient's hemoglobin is stable around 10 but has had recurrent bleeding at the pacemaker incision site requiring dressing changes daily. Patient recently was restarted on Xarelto and mistakenly patient restarted his aspirin as well after a brief interim off medicines due to suspected GI bleed. This a.m. patient noted to have a hematoma without active bleeding at this time. Patient has shortness of breath but this is in the setting of pneumonia. Cardiology consulted for evaluation recommendations. [facility] History Medical History: Reports:: Atrial Fibrillation, Congestive Heart Failure, Coronary Artery Disease, Diabetes Mellitus Type 2, Gastroesophageal Reflux Disease(GERD), Hyperlipidemia, Hypertension, Internal Pacemaker, Renal Disease Denies:: Cancer, Cerebrovascular Accident, Diabetes Mellitus Type 1, MRSA, Myocardial Infarction, Seizures Other Medical History: Reports: Cataracts. Denies: Blood Transfusion Reaction Laterality Cases: Bilateral: Arthroscopy Knee, Total Knee Replacement Other Surgeries: Yes: CABG (x3), Coronary Stent (x5), Hernia Repair, Open Heart Surgery, Pacemaker, Skin Cancer Excision, Other (circumcision,cataract removal, plastic sx on face) Amputation: No Fractures: No - *Social History Educational Level: Completed Grade School Smoking Status: Never smoker Alcohol Intake: never Alcohol Intake Frequency:: other Occupational Status: retired Housing: house Household Members: spouse - Psychiatric History Expresses thoughts of harming self/others: None Suicide Plan Description: No Plan *Family Hx:: Heart Attack, Hypertension Meds Home Medications Medication Instructions Recorded Confirmed Type isosorbide mononitrate ER 120 mg 120 mg PO QAM 07/10/17 10/25/17 History tablet,extended release 24 hr polyethylene glycol 3350 17 gram 17 g PO QDAY PRN 07/10/17 10/25/17 History oral powder packet cholecalciferol (vitamin D3) 1,000 1,000 unit PO ONCE 07/14/17 10/25/17 History unit capsule cyanocobalamin (vit B-12) 1,000 1,000 mcg PO QDAY 07/14/17 10/25/17 History mcg tablet eplerenone 25 mg tablet 25 mg PO QDAY tab 07/14/17 10/25/17 History pioglitazone 15 mg-metformin 850 1 tab PO BID 07/14/17 10/25/17 History mg tablet clopidogrel 75 mg tablet 75 mg PO ONCE 07/20/17 10/25/17 History lansoprazole 30 mg delayed 30 mg PO QHS 09/29/17 10/25/17 History release,disintegrating tablet dilTIAZem HCl [Diltiazem 240mg 240 mg PO ONCE 10/02/17 10/25/17 History 24Hr ER Cap] Aspirin [Aspir 81] 81 mg PO DAILY 10/17/17 10/25/17 History Rivaroxaban [Xarelto 15mg tablet] 15 mg PO DAILY 10/17/17 10/25/17 History Terazosin HCl [Hytrin 1mg Capsule] 1 mg PO DAILY 10/17/17 10/25/17 History Torsemide [Demadex] 40 mg PO QDAY 10/17/17 10/25/17 History Allergies Allergy/AdvReac Type Severity Reaction Status Date / Time apixaban [From ELIQUIS] Allergy Mild I-RASH Verified 10/22/17 10:51 doxycycline [DOXYCYCLINE] Allergy Mild MCINTYRE Verified 10/22/17 10:51 SKIN, BLISTERS insulin aspart Allergy Mild I-RASH Verified 10/22/17 10:51 [INSULIN ASPART] Insulins Allergy Mild Verified 10/22/17 10:51 latex [LATEX] Allergy Mild I-RASH Verified 10/22/17 10:51 lovastatin [LOVASTATIN] Allergy Mild I-RASH Verified 10/22/17 10:51 oxycodone [From PERCOCET] Allergy Mild I-RASH Verified 10/22/17 10:51 pantoprazole [From PROTONIX] Allergy Mild I-RASH Verified 10/22/17 10:51 pioglitazone Allergy Mild I-RASH Verified 10/22/17 10:51 [From ACTOPLUS MET] sulfamethoxazole Allergy Mild I-RASH Verified 10/22/17 10:51 [From SEPTRA] trimethoprim [From SEPTRA] Allergy Mild I-RASH Verified 10/22/17 10:51 ferrous gluconate AdvReac Rash Verified 10/22/17 10:51 Review of Systems - Constitutional Reports fatigue - *Cardiovascular Reports shortness of breath - *Respiratory Reports shortness of breath with activity Exam Vital signs and Labs for Last 24 Hours: Temp Pulse Resp BP Pulse Ox 97.4 F L 89 16 134/78 92 L 10/26/17 04:00 10/26/17 04:00 10/26/17 04:00 10/26/17 04:00 10/26/17 04:00 Laboratory Results - last 24 hr 10/25/17 11:00: WBC 4.7 L, RBC 3.28 L, Hgb 10.3 L, Hct 33.4 L, MCV 102.0 H, MCH 31.4 H, MCHC 30.7 L, RDW 14.2, Plt Count 179, MPV 9.9, Neut % (Auto) 67.4, Lymph % (Auto) 22.6, [place] % (Auto) 8.4, Eos % (Auto) 1.2, Baso % (Auto) 0.5, Neut # (Auto) 3.2, Lymph # (Auto) 1.1, [place] # (Auto) 0.4, Eos # (Auto) 0.1, Baso # (Auto) 0.0 10/25/17 11:00: Sodium 141, Potassium 4.3, Chloride 102, Carbon Dioxide 30, Anion Gap 13.3, BUN 26 H, Creatinine 1.98 H, Estimated Creat Clear 54, Estimated GFR 33 L, Est GFR ( Amer) 40 L, Glucose 220 H, Calcium 9.2, Total Bilirubin 0.4, AST 11 L, ALT 15, Alkaline Phosphatase 58, Total Protein 7.5, Albumin 3.6, Globulin 3.9 H, Albumin/Globulin Ratio 0.9 L 10/25/17 11:00: PT 12.9 H, INR 1.19 H 10/25/17 11:00: B-Natriuretic Peptide 791 H 10/25/17 11:50: Urine Color Yellow, Urine Appearance Clear, Urine pH 5.0, Ur Specific [place] 1.015, Urine Protein Negative, Urine Glucose (UA) Negative, Urine Ketones Negative, Urine Blood Negative, Urine Nitrate Negative, Urine Bilirubin Negative, Urine Urobilinogen 0.2, Ur Leukocyte Esterase Negative, Urine WBC Occasional, Ur Squamous Epith Cells Occasional, Urine Bacteria 1+ 10/25/17 15:10: Lactic Acid 2.2 H 10/25/17 15:11: Lactic Acid Fup @ 4Hr 2.4 H 10/25/17 21:44: Lactic Acid Fup @ 2Hr 1.7 10/26/17 05:50: Sodium 143, Potassium 4.6, Chloride 104, Carbon Dioxide 33 H, Anion Gap 10.6, BUN 25 H, Creatinine 1.91 H, Estimated Creat Clear 57, Estimated GFR 34 L, Est GFR ( Amer) 41 L, Glucose 139 H D I & O for Last 24 hours: Intake & Output 10/23/17 10/24/17 10/25/17 10/26/17 11:59 11:59 11:59 11:59 Intake Total 530 / 530 Output Total 1575 / 1575 Balance -1045 / -1045 Weight 280 lb 281 lb 4 oz Microbiology Reports for the Last 24 Hours: Microbiology 10/25/17 12:45 Chest Gram Stain - Final 10/25/17 12:45 Chest Wound Culture - Preliminary - *Routine Respiratory Exam Present: rhonchi, diminished air movement - *Routine Cardiovascular Exam Present: irregular rhythm - *Routine Skin Exam Comments: Pacer site in the left chest with evidence of hematoma. No active bleeding at this time. Assessment and Plan (1) Hematoma of pacemaker pocket Current visit: Yes Status: Acute Category: Medical Code(s): T82.837A - Hemorrhage due to cardiac prosthetic devices, implants and grafts, initial encounter (2) Community acquired pneumonia Current visit: Yes Status: Acute Qualifiers: Laterality: right Lung location: upper lobe of lung Qualified Code(s): J18.1 - Lobar pneumonia, unspecified organism Category: Medical Code(s): J18.9 - Pneumonia, unspecified organism (3) Congestive heart failure Current visit: Yes Status: Acute Category: Medical Code(s): I50.9 - Heart failure, unspecified (4) Chronic anemia Current visit: No Status: Acute Category: Medical Code(s): D64.9 - Anemia , unspecified (5) Atrial fibrillation Current visit: No Status: Chronic Qualifiers: Atrial fibrillation type: chronic Qualified Code(s): I48.2 - Chronic atrial fibrillation Category: Medical Code(s): I48.91 - Unspecified atrial fibrillation (6) CAD (coronary artery disease) Current visit: No Status: Chronic Qualifiers: Coronary Disease-Associated Artery/Lesion type: [place] artery [place] vs. transplanted heart: [place] heart Associated angina: angina presence unspecified Qualified Code(s): I25.10 - Atherosclerotic heart disease of [place] coronary artery without angina pectoris Category: Medical Code(s): I25.10 - Atherosclerotic heart disease of [place] coronary artery without angina pectoris (7) Cardiac pacemaker in situ Current visit: No Status: Chronic Category: Medical Code(s): Z95.0 - Presence of cardiac pacemaker (8) Diabetes mellitus Current visit: No Status: Chronic Qualifiers: Diabetes mellitus type: type 2 Diabetes mellitus fdc insulin use: without fdc use Diabetes mellitus complication status: without complication Qualified Code(s): E11.9 - Type 2 diabetes mellitus without complications Category: Medical Code(s): E11.9 - Type 2 diabetes mellitus without complications (9) HHD (hypertensive heart disease) Current visit: No Status: Chronic Qualifiers: Heart failure presence: with heart failure Qualified Code(s): I11.0 - Hypertensive heart disease with heart failure Category: Medical Code(s): I11.9 - Hypertensive heart disease without heart failure (10) HLD (hyperlipidemia) Current visit: No Status: Chronic Qualifiers: Hyperlipidemia type: other hyperlipidemia Qualified Code(s): E78.4 - Other hyperlipidemia Category: Medical Code(s): E78.5 - Hyperlipidemia, unspecified - Assessment and plan all Dx Assessment and Plan for all problems:: 1. Will discontinue aspirin, Plavix and Xarelto at this time due to recurrent hematoma. Patient is greater than 3 months out from last drug-eluting stent. 2. No plans to take patient to the operating room due to the hematoma at this time. We will continue to observe with conservative management. If needed we will consider sedation to express more of the hematoma and reapply a pressure dressing.
--- NOTE | 2017-10-26 08:47 | History & Physical Report ---
*Admission Date: 10/25/17 <Tricia Porter 10/26/17 09:00> *Chief complaint: short of breath; surgical wound healing <Tricia Porter 09:00> *History of present illness: Mr. Hernadez is a 77-year-old male with a history of hyperlipidemia, hypertension , DVT of the left leg, type 2 diabetes, ASCVD, obstructive sleep apnea and uses BiPAP, peripheral vascular disease, CHF, COPD and anemia who presented to [facility] emergency room feeling short of breath with a cough, fever, and bleeding from around his pacer site. He was seen in the office of after which he developed a slight cough with some sputum production. He felt that he had a fever. He denies sore throat, runny nose, ear pain, and chest pain. In the emergency room he was found to have pneumonia and was admitted for further evaluation and treatment. This a.m. he does not feel much better. Pacer site has continued to bleed slightly. <Tricia Porter 10/26/17 09:00> [facility] History Medical History: Reports:: Arrhythmia, Atherosclerotic Heart Disease, Atrial Fibrillation, Congestive Heart Failure, Chronic Obstructive Pulmonary Disease ( COPD), Coronary Artery Disease, Deep Vein Thrombosis, Diabetes Mellitus Type 2, Gastroesophageal Reflux Disease(GERD), Hyperlipidemia, Hypertension, Internal Pacemaker, Peripheral Artery Disease, Renal Disease Denies:: Cancer, Cerebrovascular Accident, Diabetes Mellitus Type 1, MRSA, Myocardial Infarction, Seizures <Tricia Porter 10/26/17 09:00> Other Medical History: Reports: Anemia, Cataracts. Denies: Blood Transfusion Reaction <Tricia Porter 10/26/17 09:00> Laterality Cases: Bilateral: Arthroscopy Knee, Total Knee Replacement <Tricia Porter 10/26/17 09:00> Other Surgeries: Yes: CABG (x3), Coronary Stent (x5), Hernia Repair, Open Heart Surgery, Pacemaker, Skin Cancer Excision, Other (circumcision,cataract removal, plastic sx on face) <Tricia Porter 10/26/17 09:00> Amputation: No <Tricia Porter 10/26/17 09:00> Fractures: No <Tricia Porter 10/26/17 09:00> - *Social History Educational Level: Completed Grade School <PorterTricia - 10/26/17 09:00> Smoking Status: Never smoker <CharlotteTricia - 10/26/17 09:00> Alcohol Intake: never <Porter,Tricia - 10/26/17 09:00> Alcohol Intake Frequency:: other <Porter,Tricia - 10/26/17 09:00> Occupational Status: retired <Tricia Porter 10/26/17 09:00> Housing: house <PorterTricia 10/26/17 09:00> Household Members: spouse <Porter,Tricia - 10/26/17 09:00> - Psychiatric History Expresses thoughts of harming self/others: None <Tricia Porter 10/26/17 09: 00> Suicide Plan Description: No Plan <Porter,Tricia - 10/26/17 09:00> *Family Hx:: Heart Attack, Hypertension <Tricia Porter 10/26/17 09:00> Review of Systems - Constitutional Reports weakness, Denies headache(s) <Tricia Porter 10/26/17 09:00> - ENT Denies dizziness, Denies ear pain, Denies headache(s), Denies sore throat < Tricia Porter 10/26/17 09:00> - *Cardiovascular Reports shortness of breath, Reports leg swelling <Tricia Porter 10/26/17 09 :00> - *Respiratory Reports cough, Denies coughing up blood <Tricia Porter 10/26/17 09:00> - *Gastrointestinal Reports abdominal pain, Denies change in stools, Denies nausea, Denies vomiting <Tricia Porter 10/26/17 09:00> - *Genitourinary Denies difficulty urinating <Tricia Porter 10/26/17 09:00> - *Musculoskeletal Denies abnormal walking <Tricia Porter 10/26/17 09:00> - *Neurologic Denies abnormal walking, Denies confusion <Tricia Porter 10/26/17 09:00> Meds Home Medications Medication Instructions Recorded Confirmed Type isosorbide mononitrate ER 120 mg 120 mg PO DAILY 07/10/17 10/26/17 History tablet,extended release 24 hr polyethylene glycol 3350 17 gram 17 g PO DAILY PRN 07/10/17 10/26/17 History oral powder packet cholecalciferol (vitamin D3) 1,000 1,000 unit PO DAILY 07/14/17 10/26/17 History unit capsule cyanocobalamin (vit B-12) 1,000 1,000 mcg PO DAILY 07/14/17 10/26/17 History mcg tablet eplerenone 25 mg tablet 25 mg PO BID tab 07/14/17 10/26/17 History pioglitazone 15 mg-metformin 850 1 tab PO BID 07/14/17 10/25/17 History mg tablet clopidogrel 75 mg tablet 75 mg PO DAILY 07/20/17 10/26/17 History lansoprazole 30 mg delayed 30 mg PO HS 09/29/17 10/26/17 History release,disintegrating tablet dilTIAZem HCl [Diltiazem 240mg 240 mg PO DAILY 10/02/17 10/26/17 History 24Hr ER Cap] Aspirin [Aspir 81] 81 mg PO DAILY 10/17/17 10/25/17 History Rivaroxaban [Xarelto 15mg tablet] 15 mg PO DAILY 10/17/17 10/25/17 History Terazosin HCl [Hytrin 1mg Capsule] 1 mg PO HS 10/17/17 10/26/17 History Torsemide [Demadex] 40 mg PO DAILY 10/17/17 10/26/17 History clonazePAM [Klonopin 1mg tablet] 1 mg PO HS 10/26/17 10/26/17 History <Edy Dhillon - 10/26/17 10:19> Allergies Allergy/AdvReac Type Severity Reaction Status Date / Time apixaban [From ELIQUIS] Allergy Mild I-RASH Verified 10/22/17 10:51 doxycycline [DOXYCYCLINE] Allergy Mild MCINTYRE Verified 10/22/17 10:51 SKIN, BLISTERS insulin aspart Allergy Mild I-RASH Verified 10/22/17 10:51 [INSULIN ASPART] Insulins Allergy Mild Verified 10/22/17 10:51 latex [LATEX] Allergy Mild I-RASH Verified 10/22/17 10:51 lovastatin [LOVASTATIN] Allergy Mild I-RASH Verified 10/22/17 10:51 oxycodone [From PERCOCET] Allergy Mild I-RASH Verified 04/19/18 10:51 pantoprazole [From PROTONIX] Allergy Mild I-RASH Verified 10/22/17 10:51 pioglitazone Allergy Mild I-RASH Verified 10/22/17 10:51 [From ACTOPLUS MET] sulfamethoxazole Allergy Mild I-RASH Verified 10/22/17 10:51 [From SEPTRA] trimethoprim [From SEPTRA] Allergy Mild I-RASH Verified 10/22/17 10:51 ferrous gluconate AdvReac Rash Verified 10/22/17 10:51 <Edy Dhillon - 10/26/17 10:19> Exam Vital signs and Labs for Last 24 Hours: Temp Pulse Resp BP Pulse Ox 97.9 F 73 20 148/78 95 10/26/17 08:00 10/26/17 08:00 10/26/17 08:00 10/26/17 08:00 10/26/17 08:00 Laboratory Results - last 24 hr 10/25/17 11:00: WBC 4.7 L, RBC 3.28 L, Hgb 10.3 L, Hct 33.4 L, MCV 102.0 H, MCH 31.4 H, MCHC 30.7 L, RDW 14.2, Plt Count 179, MPV 9.9, Neut % (Auto) 67.4, Lymph % (Auto) 22.6, [place] % (Auto) 8.4, Eos % (Auto) 1.2, Baso % (Auto) 0.5, Neut # (Auto) 3.2, Lymph # (Auto) 1.1, Reynolds # (Auto) 0.4, Eos # (Auto) 0.1, Baso # (Auto) 0.0 10/25/17 11:00: Sodium 141, Potassium 4.3, Chloride 102, Carbon Dioxide 30, Anion Gap 13.3, BUN 26 H, Creatinine 1.98 H, Estimated Creat Clear 54, Estimated GFR 33 L, Est GFR ( Amer) 40 L, Glucose 220 H, Calcium 9.2, Total Bilirubin 0.4, AST 11 L, ALT 15, Alkaline Phosphatase 58, Total Protein 7.5, Albumin 3.6, Globulin 3.9 H, Albumin/Globulin Ratio 0.9 L 10/25/17 11:00: PT 12.9 H, INR 1.19 H 10/25/17 11:00: B-Natriuretic Peptide 791 H 10/25/17 11:50: Urine Color Yellow, Urine Appearance Clear, Urine pH 5.0, Ur Specific [place] 1.015, Urine Protein Negative, Urine Glucose (UA) Negative, Urine Ketones Negative, Urine Blood Negative, Urine Nitrate Negative, Urine Bilirubin Negative, Urine Urobilinogen 0.2, Ur Leukocyte Esterase Negative, Urine WBC Occasional, Ur Squamous Epith Cells Occasional, Urine Bacteria 1+ 10/25/17 15:10: Lactic Acid 2.2 H 10/25/17 15:11: Lactic Acid Fup @ 4Hr 2.4 H 10/25/17 21:44: Lactic Acid Fup @ 2Hr 1.7 10/26/17 05:50: Sodium 143, Potassium 4.6, Chloride 104, Carbon Dioxide 33 H, Anion Gap 10.6, BUN 25 H, Creatinine 1.91 H, Estimated Creat Clear 57, Estimated GFR 34 L, Est GFR ( Amer) 41 L, Glucose 139 H D <Edy Dhillon - 10/26/17 10:19> Temp Pulse Resp BP Pulse Ox 97.4 F L 89 16 134/78 92 L 10/26/17 04:00 10/26/17 04:00 10/26/17 04:00 10/26/17 04:00 10/26/17 04:00 Laboratory Results - last 24 hr 10/25/17 11:00: WBC 4.7 L, RBC 3.28 L, Hgb 10.3 L, Hct 33.4 L, MCV 102.0 H, MCH 31.4 H, MCHC 30.7 L, RDW 14.2, Plt Count 179, MPV 9.9, Neut % (Auto) 67.4, Lymph % (Auto) 22.6, Reynolds % (Auto) 8.4, Eos % (Auto) 1.2, Baso % (Auto) 0.5, Neut # (Auto) 3.2, Lymph # (Auto) 1.1, Reynolds # (Auto) 0.4, Eos # (Auto) 0.1, Baso # (Auto) 0.0 10/25/17 11:00: Sodium 141, Potassium 4.3, Chloride 102, Carbon Dioxide 30, Anion Gap 13.3, BUN 26 H, Creatinine 1.98 H, Estimated Creat Clear 54, Estimated GFR 33 L, Est GFR ( Amer) 40 L, Glucose 220 H, Calcium 9.2, Total Bilirubin 0.4, AST 11 L, ALT 15, Alkaline Phosphatase 58, Total Protein 7.5, Albumin 3.6, Globulin 3.9 H, Albumin/Globulin Ratio 0.9 L 10/25/17 11:00: PT 12.9 H, INR 1.19 H 10/25/17 11:00: B-Natriuretic Peptide 791 H 10/25/17 11:50: Urine Color Yellow, Urine Appearance Clear, Urine pH 5.0, Ur Specific [place] 1.015, Urine Protein Negative, Urine Glucose (UA) Negative, Urine Ketones Negative, Urine Blood Negative, Urine Nitrate Negative, Urine Bilirubin Negative, Urine Urobilinogen 0.2, Ur Leukocyte Esterase Negative, Urine WBC Occasional, Ur Squamous Epith Cells Occasional, Urine Bacteria 1+ 10/25/17 15:10: Lactic Acid 2.2 H 10/25/17 15:11: Lactic Acid Fup @ 4Hr 2.4 H 10/25/17 21:44: Lactic Acid Fup @ 2Hr 1.7 10/26/17 05:50: Sodium 143, Potassium 4.6, Chloride 104, Carbon Dioxide 33 H, Anion Gap 10.6, BUN 25 H, Creatinine 1.91 H, Estimated Creat Clear 57, Estimated GFR 34 L, Est GFR ( Amer) 41 L, Glucose 139 H D <Tricia Porter - 10/26/17 09:00> I & O for Last 24 hours: Intake & Output 10/23/17 10/24/17 10/25/17 10/26/17 11:59 11:59 11:59 11:59 Intake Total 530 / 530 Output Total 1575 / 1575 Balance -1045 / -1045 Weight 280 lb 281 lb 4 oz <Edy Dhillon - 10/26/17 10:19> Intake & Output 10/23/17 10/24/17 10/25/17 10/26/17 11:59 11:59 11:59 11:59 Intake Total 530 / 530 Output Total 1575 / 1575 Balance -1045 / -1045 Weight 280 lb 281 lb 4 oz <Tricia Porter - 10/26/17 09:00> Microbiology Reports for the Last 24 Hours: Microbiology 10/25/17 12:45 Chest Gram Stain - Final 10/25/17 12:45 Chest Wound Culture - Preliminary <Edy Dhillon - 10/26/17 10:19> Microbiology 10/25/17 12:45 Chest Gram Stain - Final 10/25/17 12:45 Chest Wound Culture - Preliminary <Tricia Porter - 10/26/17 09:00> Radiology Reports for the Last 24 Hours: 10/25/2017 chest x-ray IMPRESSION: Ill-defined right suprahilar right upper lobe bronchopneumonia, question possible right subpulmonic pleural effusion <Tricia Porter 10/26/17 09:00> - *Routine HEENT Exam Head: Present: normocephalic, atraumatic <Tricia Porter 10/26/17 09:00> Eye: Present: PERRL. Absent: conjunctival icterus, scleral injection <Tricia Porter 10/26/17 09:00> ENT: Present: mucous membranes moist, oropharynx clear <Tricia Porter 09:00> - *Routine Neck Exam Present: supple. Absent: carotid bruit, lymphadenopathy, thyromegaly <Tricia Porter 10/26/17 09:00> - *Routine Respiratory Exam Comments: Crackles in right upper lobe posteriorly. <Tricia Porter 10/26/17 09:00> - *Routine Cardiovascular Exam Present: RRR <Tricia Porter 10/26/17 09:00> Comments: Mostly paced rhythm on monitor strips. <Tricia Porter 10/26/17 09:00> - *Routine Abdominal Exam Present: soft, normoactive bowel sounds. Absent: tenderness, guarding < Tricia Porter 10/26/17 09:00> - *Routine Extremities Exam Present: edema (Trace). Absent: calf tenderness <Tricia Porter 10/26/17 09: 00> - *Routine Skin Exam Comments: Left upper chest with pacer. Wound appears erythemic and edematous. Some blood on the dressing. Pockets of blood noted superficially. <PorterTricia Gera 10/26/17 09:00> - *Routine Neurological Exam Present: alert, oriented X3 <Tricia Porter 10/26/17 09:00> H&P: Result - Labs Labs: Short CBC 10/25/17 Range/Units 11:00 WBC 4.7 L (4.8-10.8) K/mm3 Hgb 10.3 L (14.1-18.0) g/dL Hct 33.4 L (42.0-52.0) % Plt Count 179 (142-424) K/mm3 [facility] 10/25/17 10/26/17 11:00 05:50 Sodium 141 143 Potassium 4.3 4.6 Chloride 102 104 Carbon Dioxide 30 33 H BUN 26 H 25 H Creatinine 1.98 H 1.91 H Glucose 220 H 139 H D Calcium 9.2 Liver Function 10/25/17 Range/Units 11:00 Total Bilirubin 0.4 (0.2-1.0) mg/dL AST 11 L (15-37) U/L ALT 15 (12-78) U/L Alkaline Phosphatase 58 (46-116) U/L Albumin 3.6 (3.4-5.0) gm/dL Urine 10/25/17 Range/Units 11:50 Urine Color Yellow (Yellow) Urine Appearance Clear (Clear) Urine pH 5.0 (5.0-8.5) Ur Specific [place] 1.015 (1.005-1.030) Urine Protein Negative (Negative) Urine Glucose (UA) Negative (Negative) <JacquieEdy Beto - 10/26/17 10:19> Short CBC 10/25/17 Range/Units 11:00 WBC 4.7 L (4.8-10.8) K/mm3 Hgb 10.3 L (14.1-18.0) g/dL Hct 33.4 L (42.0-52.0) % Plt Count 179 (142-424) K/mm3 [facility] 10/25/17 10/26/17 11:00 05:50 Sodium 141 143 Potassium 4.3 4.6 Chloride 102 104 Carbon Dioxide 30 33 H BUN 26 H 25 H Creatinine 1.98 H 1.91 H Glucose 220 H 139 H D Calcium 9.2 Liver Function 10/25/17 Range/Units 11:00 Total Bilirubin 0.4 (0.2-1.0) mg/dL AST 11 L (15-37) U/L ALT 15 (12-78) U/L Alkaline Phosphatase 58 (46-116) U/L Albumin 3.6 (3.4-5.0) gm/dL Urine 10/25/17 Range/Units 11:50 Urine Color Yellow (Yellow) Urine Appearance Clear (Clear) Urine pH 5.0 (5.0-8.5) Ur Specific [place] 1.015 (1.005-1.030) Urine Protein Negative (Negative) Urine Glucose (UA) Negative (Negative) <Tricia Porter - 10/26/17 09:00> Assessment and Plan (1) Community acquired pneumonia Current visit: Yes Status: Acute Qualifiers: Laterality: right Lung location: upper lobe of lung Qualified Code(s): J18.1 - Lobar pneumonia, unspecified organism Category: Medical Code(s): J18.9 - Pneumonia, unspecified organism (2) Congestive heart failure Current visit: Yes Status: Acute Category: Medical Code(s): I50.9 - Heart failure, unspecified (3) Hematoma of pacemaker pocket Current visit: Yes Status: Acute Category: Medical Code(s): T82.837A - Hemorrhage due to cardiac prosthetic devices, implants and grafts, initial encounter (4) Chronic anemia Current visit: No Status: Acute Category: Medical Code(s): D64.9 - Anemia , unspecified (5) Atrial fibrillation Current visit: No Status: Chronic Qualifiers: Atrial fibrillation type: chronic Qualified Code(s): I48.2 - Chronic atrial fibrillation Category: Medical Code(s): I48.91 - Unspecified atrial fibrillation (6) CAD (coronary artery disease) Current visit: No Status: Chronic Qualifiers: Coronary Disease-Associated Artery/Lesion type: [place] artery [place] vs. transplanted heart: [place] heart Associated angina: angina presence unspecified Qualified Code(s): I25.10 - Atherosclerotic heart disease of [place] coronary artery without angina pectoris Category: Medical Code(s): I25.10 - Atherosclerotic heart disease of [place] coronary artery without angina pectoris (7) Cardiac pacemaker in situ Current visit: No Status: Chronic Category: Medical Code(s): Z95.0 - Presence of cardiac pacemaker (8) Diabetes mellitus Current visit: No Status: Chronic Qualifiers: Diabetes mellitus type: type 2 Diabetes mellitus terminal carman insulin use: without long-term use Diabetes mellitus complication status: without complication Qualified Code(s): E11.9 - Type 2 diabetes mellitus without complications Category: Medical Code(s): E11.9 - Type 2 diabetes mellitus without complications (9) HHD (hypertensive heart disease) Current visit: No Status: Chronic Qualifiers: Heart failure presence: with heart failure Qualified Code(s): I11.0 - Hypertensive heart disease with heart failure Category: Medical Code(s): I11.9 - Hypertensive heart disease without heart failure (10) HLD (hyperlipidemia) Current visit: No Status: Chronic Qualifiers: Hyperlipidemia type: other hyperlipidemia Qualified Code(s): E78.4 - Other hyperlipidemia Category: Medical Code(s): E78.5 - Hyperlipidemia, unspecified <Edy Dhillon - 10/26/17 10:19> (1) Hematoma of pacemaker pocket Current visit: Yes Status: Acute Category: Medical Code(s): T82.837A - Hemorrhage due to cardiac prosthetic devices, implants and grafts, initial encounter (2) Community acquired pneumonia Current visit: Yes Status: Acute Qualifiers: Laterality: right Lung location: upper lobe of lung Qualified Code(s): J18.1 - Lobar pneumonia, unspecified organism Category: Medical Code(s): J18.9 - Pneumonia, unspecified organism (3) Congestive heart failure Current visit: Yes Status: Acute Category: Medical Code(s): I50.9 - Heart failure, unspecified (4) Chronic anemia Current visit: No Status: Acute Category: Medical Code(s): D64.9 - Anemia , unspecified (5) Atrial fibrillation Current visit: No Status: Chronic Qualifiers: Atrial fibrillation type: chronic Qualified Code(s): I48.2 - Chronic atrial fibrillation Category: Medical Code(s): I48.91 - Unspecified atrial fibrillation (6) CAD (coronary artery disease) Current visit: No Status: Chronic Qualifiers: Coronary Disease-Associated Artery/Lesion type: [place] artery [place] vs. transplanted heart: [place] heart Associated angina: angina presence unspecified Qualified Code(s): I25.10 - Atherosclerotic heart disease of [place] coronary artery without angina pectoris Category: Medical Code(s): I25.10 - Atherosclerotic heart disease of [place] coronary artery without angina pectoris (7) Cardiac pacemaker in situ Current visit: No Status: Chronic Category: Medical Code(s): Z95.0 - Presence of cardiac pacemaker (8) Diabetes mellitus Current visit: No Status: Chronic Qualifiers: Diabetes mellitus type: type 2 Diabetes mellitus long-term insulin use: without long-term use Diabetes mellitus complication status: without complication Qualified Code(s): E11.9 - Type 2 diabetes mellitus without complications Category: Medical Code(s): E11.9 - Type 2 diabetes mellitus without complications (9) HHD (hypertensive heart disease) Current visit: No Status: Chronic Qualifiers: Heart failure presence: with heart failure Qualified Code(s): I11.0 - Hypertensive heart disease with heart failure Category: Medical Code(s): I11.9 - Hypertensive heart disease without heart failure (10) HLD (hyperlipidemia) Current visit: No Status: Chronic Qualifiers: Hyperlipidemia type: other hyperlipidemia Qualified Code(s): E78.4 - Other hyperlipidemia Category: Medical Code(s): E78.5 - Hyperlipidemia, unspecified <Tricia Porter - 10/26/17 08:42> - Assessment and plan all Dx Assessment and Plan for all problems:: Patient seen and examined. Appears in NAD. He has been started in pneumonia protocol. Cardiology consult noted. <Edy Dhillon - 10/26/17 10:19> Cardiology to follow for pacer site. We will continue with antibiotics and start duo nebs. <Tricia Porter - 10/26/17 09:00>
--- NOTE | 2017-10-27 08:14 | Progress Note ---
Subjective Date: 10/27/17 Time: 08:10 Principal diagnosis: Pacemaker hematoma Interval history: 87-year-old white male at bedside in no acute distress. States he is breathing better today. Patient had a 30 sec episode of chest pain this a.m. with no recurrence. Telemetry shows rates in the 90s to low 100s with intermittent pacing. Exam Vital signs and Labs for Last 24 Hours: Temp Pulse Resp BP Pulse Ox 98.7 F 105 H 18 99/69 94 L 10/27/17 07:30 10/27/17 07:30 10/27/17 07:30 10/27/17 07:30 10/27/17 07:30 I & O for Last 24 hours: Intake & Output 10/24/17 10/25/17 10/26/17 10/27/17 11:59 11:59 11:59 11:59 Intake Total 530 / 530 1170 / 1170 Output Total 1575 / 1575 Balance -1045 / -1045 1170 / 1170 Weight 280 lb 281 lb 4 oz Microbiology Reports for the Last 24 Hours: Microbiology 10/25/17 12:45 Chest Gram Stain - Final 10/25/17 12:45 Chest Wound Culture - Preliminary Gram Positive Cocci 10/25/17 15:00 Blood Blood Culture - Preliminary NO GROWTH AFTER 24 HOURS 10/25/17 15:11 Blood Blood Culture - Preliminary NO GROWTH AFTER 24 HOURS 10/26/17 10:30 Sputum - Expectorated Sputum Gram Stain - Final 10/26/17 10:30 Sputum - Expectorated Sputum Sputum Culture - Final - *Routine Respiratory Exam Present: CTA bilaterally - *Routine Cardiovascular Exam Present: irregularly irregular Progress Note: A&P (1) Hematoma of pacemaker pocket Status: Acute Current Visit: Yes (2) Community acquired pneumonia Status: Acute Current Visit: Yes (3) Congestive heart failure Status: Acute Current Visit: Yes (4) Chronic anemia Status: Acute Current Visit: No (5) Atrial fibrillation Status: Chronic Current Visit: No (6) CAD (coronary artery disease) Status: Chronic Current Visit: No (7) Cardiac pacemaker in situ Status: Chronic Current Visit: No (8) Diabetes mellitus Status: Chronic Current Visit: No (9) HHD (hypertensive heart disease) Status: Chronic Current Visit: No (10) HLD (hyperlipidemia) Status: Chronic Current Visit: No Assessment and Plan for All Diagnoses:: Bandage removed with evidence of oozing noted through the incision site. Hematoma is much less noticeable today. Recommend continuing bandage changes daily. Continue combination of diltiazem and beta-zeyad therapy for rate control.
--- NOTE | 2017-10-27 08:50 | Progress Note ---
<Tricia Porter - Last Filed: 10/27/17 08:47> Internal Medicine - PN: Subj *Date: 10/27/17 *Time: 08:47 Interval history: Feels much better today and is less short of breath. He denies chest pain at this time. He has been eating without difficulty. Bowels have moved and he is voiding without difficulty. He has ambulated in the room. Exam Vital signs and Labs for Last 24 Hours: Temp Pulse Resp BP Pulse Ox 98.7 F 105 H 18 99/69 94 L 10/27/17 07:30 10/27/17 07:30 10/27/17 07:30 10/27/17 07:30 10/27/17 07:30 I & O for Last 24 hours: Intake & Output 10/24/17 10/25/17 10/26/17 10/27/17 11:59 11:59 11:59 11:59 Intake Total 530 / 530 1170 / 1170 Output Total 1575 / 1575 Balance -1045 / -1045 1170 / 1170 Weight 280 lb 281 lb 4 oz Microbiology Reports for the Last 24 Hours: Microbiology 10/25/17 12:45 Chest Gram Stain - Final 10/25/17 12:45 Chest Wound Culture - Preliminary Gram Positive Cocci 10/25/17 15:00 Blood Blood Culture - Preliminary NO GROWTH AFTER 24 HOURS 10/25/17 15:11 Blood Blood Culture - Preliminary NO GROWTH AFTER 24 HOURS 10/26/17 10:30 Sputum - Expectorated Sputum Gram Stain - Final 10/26/17 10:30 Sputum - Expectorated Sputum Sputum Culture - Final - Constitutional no acute distress Comments: Sitting on the bedside and has completed breakfast. - *Routine Respiratory Exam Present: CTA bilaterally (Anteriorly and posteriorly) - *Routine Cardiovascular Exam Present: irregular rhythm Comments: Mostly paced rhythm - *Routine Abdominal Exam Present: soft, normoactive bowel sounds. Absent: tenderness - *Routine Extremities Exam Present: edema (Trace). Absent: calf tenderness - *Routine Skin Exam Comments: Pacer site with less edema. - *Routine Neurological Exam Present: alert, oriented X3 Assessment and Plan (1) Hematoma of pacemaker pocket Current visit: Yes Status: Acute Category: Medical Code(s): T82.837A - Hemorrhage due to cardiac prosthetic devices, implants and grafts, initial encounter (2) Community acquired pneumonia Current visit: Yes Status: Acute Qualifiers: Laterality: right Lung location: upper lobe of lung Qualified Code(s): J18.1 - Lobar pneumonia, unspecified organism Category: Medical Code(s): J18.9 - Pneumonia, unspecified organism (3) Congestive heart failure Current visit: Yes Status: Acute Category: Medical Code(s): I50.9 - Heart failure, unspecified (4) Chronic anemia Current visit: No Status: Acute Category: Medical Code(s): D64.9 - Anemia , unspecified (5) Atrial fibrillation Current visit: No Status: Chronic Qualifiers: Atrial fibrillation type: chronic Qualified Code(s): I48.2 - Chronic atrial fibrillation Category: Medical Code(s): I48.91 - Unspecified atrial fibrillation (6) CAD (coronary artery disease) Current visit: No Status: Chronic Qualifiers: Coronary Disease-Associated Artery/Lesion type: [place] artery [place] vs. transplanted heart: [place] heart Associated angina: angina presence unspecified Qualified Code(s): I25.10 - Atherosclerotic heart disease of [place] coronary artery without angina pectoris Category: Medical Code(s): I25.10 - Atherosclerotic heart disease of [place] coronary artery without angina pectoris (7) Cardiac pacemaker in situ Current visit: No Status: Chronic Category: Medical Code(s): Z95.0 - Presence of cardiac pacemaker (8) Diabetes mellitus Current visit: No Status: Chronic Qualifiers: Diabetes mellitus type: type 2 Diabetes mellitus correction insulin use: without correction use Diabetes mellitus complication status: without complication Qualified Code(s): E11.9 - Type 2 diabetes mellitus without complications Category: Medical Code(s): E11.9 - Type 2 diabetes mellitus without complications (9) HHD (hypertensive heart disease) Current visit: No Status: Chronic Qualifiers: Heart failure presence: with heart failure Qualified Code(s): I11.0 - Hypertensive heart disease with heart failure Category: Medical Code(s): I11.9 - Hypertensive heart disease without heart failure (10) HLD (hyperlipidemia) Current visit: No Status: Chronic Qualifiers: Hyperlipidemia type: other hyperlipidemia Qualified Code(s): E78.4 - Other hyperlipidemia Category: Medical Code(s): E78.5 - Hyperlipidemia, unspecified - Assessment and plan all Dx Assessment and Plan for all problems:: Continue with current care. Meds as per cardiology. They are also monitoring his pacer site. <Edy Dhillon - Last Filed: 10/27/17 19:02> Internal Medicine - PN: Subj *Date: 10/27/17 *Time: 19:01 Exam Vital signs and Labs for Last 24 Hours: Temp Pulse Resp BP Pulse Ox 98.1 F 80 18 130/70 90 L 10/27/17 15:14 10/27/17 16:00 10/27/17 15:14 10/27/17 15:14 10/27/17 15:14 I & O for Last 24 hours: Intake & Output 10/25/17 10/26/17 10/27/17 10/28/17 11:59 11:59 11:59 11:59 Intake Total 530 / 530 1170 / 1170 1260 / 1260 Output Total 1575 / 1575 600 / 600 Balance -1045 / -1045 1170 / 1170 660 / 660 Weight 280 lb 281 lb 4 oz Microbiology Reports for the Last 24 Hours: Microbiology 10/25/17 15:11 Blood Blood Culture - Preliminary NO GROWTH AFTER 48 HOURS 10/25/17 15:00 Blood Blood Culture - Preliminary NO GROWTH AFTER 48 HOURS 10/27/17 07:45 Sputum - Expectorated Sputum Gram Stain - Final 10/25/17 12:45 Chest Gram Stain - Final 10/25/17 12:45 Chest Wound Culture - Preliminary Gram Positive Cocci Assessment and Plan (1) Community acquired pneumonia Current visit: Yes Status: Acute Qualifiers: Laterality: right Lung location: upper lobe of lung Qualified Code(s): J18.1 - Lobar pneumonia, unspecified organism Category: Medical Code(s): J18.9 - Pneumonia, unspecified organism (2) Hematoma of pacemaker pocket Current visit: Yes Status: Acute Category: Medical Code(s): T82.837A - Hemorrhage due to cardiac prosthetic devices, implants and grafts, initial encounter (3) Congestive heart failure Current visit: Yes Status: Acute Category: Medical Code(s): I50.9 - Heart failure, unspecified (4) Chronic anemia Current visit: No Status: Acute Category: Medical Code(s): D64.9 - Anemia , unspecified (5) Atrial fibrillation Current visit: No Status: Chronic Qualifiers: Atrial fibrillation type: chronic Qualified Code(s): I48.2 - Chronic atrial fibrillation Category: Medical Code(s): I48.91 - Unspecified atrial fibrillation (6) CAD (coronary artery disease) Current visit: No Status: Chronic Qualifiers: Coronary Disease-Associated Artery/Lesion type: [place] artery [place] vs. transplanted heart: [place] heart Associated angina: angina presence unspecified Qualified Code(s): I25.10 - Atherosclerotic heart disease of [place] coronary artery without angina pectoris Category: Medical Code(s): I25.10 - Atherosclerotic heart disease of [place] coronary artery without angina pectoris (7) Cardiac pacemaker in situ Current visit: No Status: Chronic Category: Medical Code(s): Z95.0 - Presence of cardiac pacemaker (8) Diabetes mellitus Current visit: No Status: Chronic Qualifiers: Diabetes mellitus type: type 2 Diabetes mellitus correction insulin use: without terminal manager use Diabetes mellitus complication status: without complication Qualified Code(s): E11.9 - Type 2 diabetes mellitus without complications Category: Medical Code(s): E11.9 - Type 2 diabetes mellitus without complications (9) HHD (hypertensive heart disease) Current visit: No Status: Chronic Qualifiers: Heart failure presence: with heart failure Qualified Code(s): I11.0 - Hypertensive heart disease with heart failure Category: Medical Code(s): I11.9 - Hypertensive heart disease without heart failure (10) HLD (hyperlipidemia) Current visit: No Status: Chronic Qualifiers: Hyperlipidemia type: other hyperlipidemia Qualified Code(s): E78.4 - Other hyperlipidemia Category: Medical Code(s): E78.5 - Hyperlipidemia, unspecified - Assessment and plan all Dx Assessment and Plan for all problems:: Patient seen and examined. Clinically and subjectively improved. Awaiting sputum cultures.
--- NOTE | 2017-10-28 08:17 | Progress Note ---
<Tricia Porter - Last Filed: 10/28/17 08:14> Internal Medicine - PN: Subj *Date: 10/28/17 *Time: 08:14 Interval history: Patient does not feel quite as good today. He did sleep well but was "stopped up" in his chest when he awakened this a.m. breathing treatment did help but he has been unable to cough anything up. He does not feel any more short of breath and has not been wearing his oxygen. He has ambulated without difficulty. He is eating well. Exam Vital signs and Labs for Last 24 Hours: Temp Pulse Resp BP Pulse Ox 98.6 F 105 H 20 120/81 90 L 10/28/17 08:00 10/28/17 08:00 10/28/17 08:00 10/28/17 08:00 10/28/17 08:00 I & O for Last 24 hours: Intake & Output 10/25/17 10/26/17 10/27/17 10/28/17 11:59 11:59 11:59 11:59 Intake Total 530 / 530 1170 / 1170 1620 / 1620 Output Total 1575 / 1575 600 / 600 Balance -1045 / -1045 1170 / 1170 1020 / 1020 Weight 280 lb 281 lb 4 oz Microbiology Reports for the Last 24 Hours: Microbiology 10/27/17 07:45 Sputum - Expectorated Sputum Gram Stain - Final 10/27/17 07:45 Sputum - Expectorated Sputum Sputum Culture - Preliminary 10/25/17 12:45 Chest Gram Stain - Final 10/25/17 12:45 Chest Wound Culture - Preliminary Staphylococcus epidermidis 10/25/17 15:11 Blood Blood Culture - Preliminary NO GROWTH AFTER 48 HOURS 10/25/17 15:00 Blood Blood Culture - Preliminary NO GROWTH AFTER 48 HOURS - Constitutional no acute distress Comments: Sitting on bedside eating his breakfast - *Routine Respiratory Exam Comments: Bibasilar crackles - *Routine Cardiovascular Exam Present: irregular rhythm (Monitor showing paced rhythm and atrial fib and sinus tach.) - *Routine Extremities Exam Present: edema (Trace to 1+). Absent: calf tenderness - *Routine Skin Exam Comments: Left pacer site with pocket of blood. Small amount of old dried blood expressed from the blister. Nursing well cleansed with Hibiclens and apply clean dry dressing. They will observe for additional blood accumulation; less erythema and edema. Assessment and Plan (1) Community acquired pneumonia Current visit: Yes Status: Acute Qualifiers: Laterality: right Lung location: upper lobe of lung Qualified Code(s): J18.1 - Lobar pneumonia, unspecified organism Category: Medical Code(s): J18.9 - Pneumonia, unspecified organism (2) Hematoma of pacemaker pocket Current visit: Yes Status: Acute Category: Medical Code(s): T82.837A - Hemorrhage due to cardiac prosthetic devices, implants and grafts, initial encounter (3) Congestive heart failure Current visit: Yes Status: Acute Category: Medical Code(s): I50.9 - Heart failure, unspecified (4) Chronic anemia Current visit: No Status: Acute Category: Medical Code(s): D64.9 - Anemia , unspecified (5) Atrial fibrillation Current visit: No Status: Chronic Qualifiers: Atrial fibrillation type: chronic Qualified Code(s): I48.2 - Chronic atrial fibrillation Category: Medical Code(s): I48.91 - Unspecified atrial fibrillation (6) CAD (coronary artery disease) Current visit: No Status: Chronic Qualifiers: Coronary Disease-Associated Artery/Lesion type: [place] artery [place] vs. transplanted heart: [place] heart Associated angina: angina presence unspecified Qualified Code(s): I25.10 - Atherosclerotic heart disease of [place] coronary artery without angina pectoris Category: Medical Code(s): I25.10 - Atherosclerotic heart disease of [place] coronary artery without angina pectoris (7) Cardiac pacemaker in situ Current visit: No Status: Chronic Category: Medical Code(s): Z95.0 - Presence of cardiac pacemaker (8) Diabetes mellitus Current visit: No Status: Chronic Qualifiers: Diabetes mellitus type: type 2 Diabetes mellitus roasterman insulin use: without roasterman use Diabetes mellitus complication status: without complication Qualified Code(s): E11.9 - Type 2 diabetes mellitus without complications Category: Medical Code(s): E11.9 - Type 2 diabetes mellitus without complications (9) HHD (hypertensive heart disease) Current visit: No Status: Chronic Qualifiers: Heart failure presence: with heart failure Qualified Code(s): I11.0 - Hypertensive heart disease with heart failure Category: Medical Code(s): I11.9 - Hypertensive heart disease without heart failure (10) HLD (hyperlipidemia) Current visit: No Status: Chronic Qualifiers: Hyperlipidemia type: other hyperlipidemia Qualified Code(s): E78.4 - Other hyperlipidemia Category: Medical Code(s): E78.5 - Hyperlipidemia, unspecified - Assessment and plan all Dx Assessment and Plan for all problems:: Wound care. Continue antibiotics and duo nebs. <Edy Dhillon - Last Filed: 10/28/17 10:24> Internal Medicine - PN: Subj *Date: 10/28/17 *Time: 10:23 Exam Vital signs and Labs for Last 24 Hours: Temp Pulse Resp BP Pulse Ox 98.6 F 105 H 20 120/81 90 L 10/28/17 08:00 10/28/17 08:00 10/28/17 08:00 10/28/17 08:00 10/28/17 08:00 I & O for Last 24 hours: Intake & Output 10/25/17 10/26/17 10/27/17 10/28/17 11:59 11:59 11:59 11:59 Intake Total 530 / 530 1170 / 1170 1620 / 1620 Output Total 1575 / 1575 600 / 600 Balance -1045 / -1045 1170 / 1170 1020 / 1020 Weight 280 lb 281 lb 4 oz Microbiology Reports for the Last 24 Hours: Microbiology 10/25/17 12:45 Chest Gram Stain - Final 10/25/17 12:45 Chest Wound Culture - Preliminary Staphylococcus epidermidis 10/27/17 07:45 Sputum - Expectorated Sputum Gram Stain - Final 10/27/17 07:45 Sputum - Expectorated Sputum Sputum Culture - Preliminary 10/25/17 15:11 Blood Blood Culture - Preliminary NO GROWTH AFTER 48 HOURS 10/25/17 15:00 Blood Blood Culture - Preliminary NO GROWTH AFTER 48 HOURS Assessment and Plan (1) Community acquired pneumonia Current visit: Yes Status: Acute Qualifiers: Laterality: right Lung location: upper lobe of lung Qualified Code(s): J18.1 - Lobar pneumonia, unspecified organism Category: Medical Code(s): J18.9 - Pneumonia, unspecified organism (2) Hematoma of pacemaker pocket Current visit: Yes Status: Acute Category: Medical Code(s): T82.837A - Hemorrhage due to cardiac prosthetic devices, implants and grafts, initial encounter (3) Congestive heart failure Current visit: Yes Status: Acute Category: Medical Code(s): I50.9 - Heart failure, unspecified (4) Chronic anemia Current visit: No Status: Acute Category: Medical Code(s): D64.9 - Anemia , unspecified (5) Atrial fibrillation Current visit: No Status: Chronic Qualifiers: Atrial fibrillation type: chronic Qualified Code(s): I48.2 - Chronic atrial fibrillation Category: Medical Code(s): I48.91 - Unspecified atrial fibrillation (6) CAD (coronary artery disease) Current visit: No Status: Chronic Qualifiers: Coronary Disease-Associated Artery/Lesion type: [place] artery [place] vs. transplanted heart: [place] heart Associated angina: angina presence unspecified Qualified Code(s): I25.10 - Atherosclerotic heart disease of [place] coronary artery without angina pectoris Category: Medical Code(s): I25.10 - Atherosclerotic heart disease of [place] coronary artery without angina pectoris (7) Cardiac pacemaker in situ Current visit: No Status: Chronic Category: Medical Code(s): Z95.0 - Presence of cardiac pacemaker (8) Diabetes mellitus Current visit: No Status: Chronic Qualifiers: Diabetes mellitus type: type 2 Diabetes mellitus [facility] insulin use: without roasterman use Diabetes mellitus complication status: without complication Qualified Code(s): E11.9 - Type 2 diabetes mellitus without complications Category: Medical Code(s): E11.9 - Type 2 diabetes mellitus without complications (9) HHD (hypertensive heart disease) Current visit: No Status: Chronic Qualifiers: Heart failure presence: with heart failure Qualified Code(s): I11.0 - Hypertensive heart disease with heart failure Category: Medical Code(s): I11.9 - Hypertensive heart disease without heart failure (10) HLD (hyperlipidemia) Current visit: No Status: Chronic Qualifiers: Hyperlipidemia type: other hyperlipidemia Qualified Code(s): E78.4 - Other hyperlipidemia Category: Medical Code(s): E78.5 - Hyperlipidemia, unspecified - Assessment and plan all Dx Assessment and Plan for all problems:: Lungs sound better. Will repeat CXR today. Encourage OOB activity. Possible discharge home tomorrow.
--- NOTE | 2017-10-28 15:35 | Progress Note ---
Subjective Date: 10/28/17 Time: 15:31 Principal diagnosis: Pacemaker hematoma Interval history: Feeling better. No chest pains. Relates nurse changed dressing and some oozing noted with old blood on gauze. Currently gauze and tegaderm in place without significant bleeding noted. Exam Vital signs and Labs for Last 24 Hours: Temp Pulse Resp BP Pulse Ox 98.4 F 83 18 135/68 91 L 10/28/17 11:35 10/28/17 14:15 10/28/17 11:35 10/28/17 11:35 10/28/17 14:15 I & O for Last 24 hours: Intake & Output 10/26/17 10/27/17 10/28/17 10/29/17 11:59 11:59 11:59 11:59 Intake Total 530 / 530 1170 / 1170 1620 / 1620 500 / 500 Output Total 1575 / 1575 600 / 600 675 / 675 Balance -1045 / -1045 1170 / 1170 1020 / 1020 -175 / -175 Weight 281 lb 4 oz Microbiology Reports for the Last 24 Hours: Microbiology 10/25/17 12:45 Chest Gram Stain - Final 10/25/17 12:45 Chest Wound Culture - Preliminary Staphylococcus epidermidis 10/27/17 07:45 Sputum - Expectorated Sputum Gram Stain - Final 10/27/17 07:45 Sputum - Expectorated Sputum Sputum Culture - Preliminary 10/25/17 15:11 Blood Blood Culture - Preliminary NO GROWTH AFTER 48 HOURS 10/25/17 15:00 Blood Blood Culture - Preliminary NO GROWTH AFTER 48 HOURS - *Routine Respiratory Exam Present: CTA bilaterally - *Routine Cardiovascular Exam Present: irregular rhythm - *Routine Extremities Exam Absent: edema Progress Note: A&P (1) Community acquired pneumonia Status: Acute Current Visit: Yes (2) Hematoma of pacemaker pocket Status: Acute Current Visit: Yes (3) Congestive heart failure Status: Acute Current Visit: Yes (4) Chronic anemia Status: Acute Current Visit: No (5) Atrial fibrillation Status: Chronic Current Visit: No (6) CAD (coronary artery disease) Status: Chronic Current Visit: No (7) Cardiac pacemaker in situ Status: Chronic Current Visit: No (8) Diabetes mellitus Status: Chronic Current Visit: No (9) HHD (hypertensive heart disease) Status: Chronic Current Visit: No (10) HLD (hyperlipidemia) Status: Chronic Current Visit: No Assessment and Plan for All Diagnoses:: Continue current meds. Pt is off DAPT and anticoagulant due to pacer pocket bleed.
--- NOTE | 2017-10-29 08:12 | Progress Note ---
<Giana Chávez - Last Filed: 10/29/17 08:09> Internal Medicine - PN: Subj *Date: 10/29/17 *Time: 08:09 Interval history: Patient is feeling better this morning. He states his weakness has improved. He slept well last night. He ate most of his breakfast this morning. His shortness of breath has improved. Exam Vital signs and Labs for Last 24 Hours: Temp Pulse Resp BP Pulse Ox 97.9 F 86 16 134/83 90 L 10/29/17 04:00 10/29/17 06:45 10/29/17 04:00 10/29/17 04:00 10/29/17 06:45 I & O for Last 24 hours: Intake & Output 10/26/17 10/27/17 10/28/17 10/29/17 11:59 11:59 11:59 11:59 Intake Total 530 / 530 1170 / 1170 1620 / 1620 980 / 980 Output Total 1575 / 1575 600 / 600 1275 / 1275 Balance -1045 / -1045 1170 / 1170 1020 / 1020 -295 / -295 Weight 281 lb 4 oz 281 lb 4.005 oz Microbiology Reports for the Last 24 Hours: Microbiology 10/25/17 12:45 Chest Gram Stain - Final 10/25/17 12:45 Chest Wound Culture - Preliminary Staphylococcus epidermidis 10/27/17 07:45 Sputum - Expectorated Sputum Gram Stain - Final 10/27/17 07:45 Sputum - Expectorated Sputum Sputum Culture - Preliminary Yeast 10/25/17 15:00 Blood Blood Culture - Preliminary NO GROWTH AFTER 72 HOURS 10/25/17 15:11 Blood Blood Culture - Preliminary NO GROWTH AFTER 72 HOURS - Constitutional no acute distress - *Routine Respiratory Exam Present: rales (faint basilar) - *Routine Cardiovascular Exam Present: irregular rhythm - *Routine Abdominal Exam Present: soft, normoactive bowel sounds. Absent: tenderness - *Routine Extremities Exam Present: edema Assessment and Plan (1) Community acquired pneumonia Status: Acute Qualifiers: Laterality: right Lung location: upper lobe of lung Qualified Code(s): J18.1 - Lobar pneumonia, unspecified organism Category: Medical Code(s): J18.9 - Pneumonia, unspecified organism (2) Hematoma of pacemaker pocket Status: Acute Category: Medical Code(s): T82.837A - Hemorrhage due to cardiac prosthetic devices, implants and grafts, initial encounter (3) Congestive heart failure Status: Acute Category: Medical Code(s): I50.9 - Heart failure, unspecified (4) Chronic anemia Status: Acute Category: Medical Code(s): D64.9 - Anemia, unspecified (5) Atrial fibrillation Status: Chronic Qualifiers: Atrial fibrillation type: chronic Qualified Code(s): I48.2 - Chronic atrial fibrillation Category: Medical Code(s): I48.91 - Unspecified atrial fibrillation (6) CAD (coronary artery disease) Status: Chronic Qualifiers: Coronary Disease-Associated Artery/Lesion type: [place] artery [place] vs. transplanted heart: [place] heart Associated angina: angina presence unspecified Qualified Code(s): I25.10 - Atherosclerotic heart disease of [place] coronary artery without angina pectoris Category: Medical Code(s): I25.10 - Atherosclerotic heart disease of [place] coronary artery without angina pectoris (7) Cardiac pacemaker in situ Status: Chronic Category: Medical Code(s): Z95.0 - Presence of cardiac pacemaker (8) Diabetes mellitus Status: Chronic Qualifiers: Diabetes mellitus type: type 2 Diabetes mellitus care home insulin use: without care home use Diabetes mellitus complication status: without complication Qualified Code(s): E11.9 - Type 2 diabetes mellitus without complications Category: Medical Code(s): E11.9 - Type 2 diabetes mellitus without complications (9) HHD (hypertensive heart disease) Status: Chronic Qualifiers: Heart failure presence: with heart failure Qualified Code(s): I11.0 - Hypertensive heart disease with heart failure Category: Medical Code(s): I11.9 - Hypertensive heart disease without heart failure (10) HLD (hyperlipidemia) Status: Chronic Qualifiers: Hyperlipidemia type: other hyperlipidemia Qualified Code(s): E78.4 - Other hyperlipidemia Category: Medical Code(s): E78.5 - Hyperlipidemia, unspecified - Assessment and plan all Dx Assessment and Plan for all problems:: Patient stable to be discharged home today on antibiotics. He will need to follow-up in the office of [facility] as well as with cardiology. <Edy Dhillon - Last Filed: 10/29/17 13:46> Internal Medicine - PN: Subj *Date: 10/29/17 *Time: 13:45 Exam Vital signs and Labs for Last 24 Hours: Temp Pulse Resp BP Pulse Ox 97.6 F 92 H 18 110/78 94 L 10/29/17 08:00 10/29/17 08:00 10/29/17 08:00 10/29/17 08:00 10/29/17 08:00 I & O for Last 24 hours: Intake & Output 10/27/17 10/28/17 10/29/17 10/30/17 11:59 11:59 11:59 11:59 Intake Total 1170 / 1170 1620 / 1620 1460 / 1460 Output Total 600 / 600 1275 / 1275 Balance 1170 / 1170 1020 / 1020 185 / 185 Weight 281 lb 4.005 oz Microbiology Reports for the Last 24 Hours: Microbiology 10/25/17 12:45 Chest Gram Stain - Final 10/25/17 12:45 Chest Wound Culture - Preliminary Staphylococcus epidermidis 10/27/17 07:45 Sputum - Expectorated Sputum Gram Stain - Final 10/27/17 07:45 Sputum - Expectorated Sputum Sputum Culture - Preliminary Yeast 10/25/17 15:00 Blood Blood Culture - Preliminary NO GROWTH AFTER 72 HOURS 10/25/17 15:11 Blood Blood Culture - Preliminary NO GROWTH AFTER 72 HOURS Assessment and Plan (1) Community acquired pneumonia Status: Acute Qualifiers: Laterality: right Lung location: upper lobe of lung Qualified Code(s): J18.1 - Lobar pneumonia, unspecified organism Category: Medical Code(s): J18.9 - Pneumonia, unspecified organism (2) Hematoma of pacemaker pocket Status: Acute Category: Medical Code(s): T82.837A - Hemorrhage due to cardiac prosthetic devices, implants and grafts, initial encounter (3) Congestive heart failure Status: Acute Category: Medical Code(s): I50.9 - Heart failure, unspecified (4) Chronic anemia Status: Acute Category: Medical Code(s): D64.9 - Anemia, unspecified (5) Atrial fibrillation Status: Chronic Qualifiers: Atrial fibrillation type: chronic Qualified Code(s): I48.2 - Chronic atrial fibrillation Category: Medical Code(s): I48.91 - Unspecified atrial fibrillation (6) CAD (coronary artery disease) Status: Chronic Qualifiers: Coronary Disease-Associated Artery/Lesion type: [place] artery [place] vs. transplanted heart: [place] heart Associated angina: angina presence unspecified Qualified Code(s): I25.10 - Atherosclerotic heart disease of [place] coronary artery without angina pectoris Category: Medical Code(s): I25.10 - Atherosclerotic heart disease of [place] coronary artery without angina pectoris (7) Cardiac pacemaker in situ Status: Chronic Category: Medical Code(s): Z95.0 - Presence of cardiac pacemaker (8) Diabetes mellitus Status: Chronic Qualifiers: Diabetes mellitus type: type 2 Diabetes mellitus care home insulin use: without care home use Diabetes mellitus complication status: without complication Qualified Code(s): E11.9 - Type 2 diabetes mellitus without complications Category: Medical Code(s): E11.9 - Type 2 diabetes mellitus without complications (9) HHD (hypertensive heart disease) Status: Chronic Qualifiers: Heart failure presence: with heart failure Qualified Code(s): I11.0 - Hypertensive heart disease with heart failure Category: Medical Code(s): I11.9 - Hypertensive heart disease without heart failure (10) HLD (hyperlipidemia) Status: Chronic Qualifiers: Hyperlipidemia type: other hyperlipidemia Qualified Code(s): E78.4 - Other hyperlipidemia Category: Medical Code(s): E78.5 - Hyperlipidemia, unspecified - Assessment and plan all Dx Assessment and Plan for all problems:: Patient seen and examined this AM. Concur with plan for discharge. CXR from yesterday shows resolving pneumonia
--- NOTE | 2017-10-29 08:59 | Progress Note ---
Subjective Date: 10/29/17 Time: 08:55 Principal diagnosis: Pacemaker hematoma Interval history: 77 yo WM in bed wearing nasal CPAP in NAD. States he is feeling better. Pacer dressing intact. No visible blood at this time. Exam Vital signs and Labs for Last 24 Hours: Temp Pulse Resp BP Pulse Ox 97.6 F 92 H 18 110/78 94 L 10/29/17 08:00 10/29/17 08:00 10/29/17 08:00 10/29/17 08:00 10/29/17 08:00 I & O for Last 24 hours: Intake & Output 10/26/17 10/27/17 10/28/17 10/29/17 11:59 11:59 11:59 11:59 Intake Total 530 / 530 1170 / 1170 1620 / 1620 1460 / 1460 Output Total 1575 / 1575 600 / 600 1275 / 1275 Balance -1045 / -1045 1170 / 1170 1020 / 1020 185 / 185 Weight 281 lb 4 oz 281 lb 4.005 oz Microbiology Reports for the Last 24 Hours: Microbiology 10/25/17 12:45 Chest Gram Stain - Final 10/25/17 12:45 Chest Wound Culture - Preliminary Staphylococcus epidermidis 10/27/17 07:45 Sputum - Expectorated Sputum Gram Stain - Final 10/27/17 07:45 Sputum - Expectorated Sputum Sputum Culture - Preliminary Yeast 10/25/17 15:00 Blood Blood Culture - Preliminary NO GROWTH AFTER 72 HOURS 10/25/17 15:11 Blood Blood Culture - Preliminary NO GROWTH AFTER 72 HOURS - *Routine Respiratory Exam Present: CTA bilaterally - *Routine Cardiovascular Exam Present: irregular rhythm Progress Note: A&P (1) Community acquired pneumonia Status: Acute Current Visit: Yes (2) Hematoma of pacemaker pocket Status: Acute Current Visit: Yes (3) Congestive heart failure Status: Acute Current Visit: Yes (4) Chronic anemia Status: Acute Current Visit: No (5) Atrial fibrillation Status: Chronic Current Visit: No (6) CAD (coronary artery disease) Status: Chronic Current Visit: No (7) Cardiac pacemaker in situ Status: Chronic Current Visit: No (8) Diabetes mellitus Status: Chronic Current Visit: No (9) HHD (hypertensive heart disease) Status: Chronic Current Visit: No (10) HLD (hyperlipidemia) Status: Chronic Current Visit: No Assessment and Plan for All Diagnoses:: With continued oozing at pacer site, will hold off on restarting anti-platelet therapy and anticoagulant therapy until evaluation next week in the office. Pt will be discharged home today.
--- NOTE | 2017-10-29 09:18 | Progress Note ---
Internal Medicine - PN: Subj *Date: 10/29/17 *Time: 09:17 Exam Vital signs and Labs for Last 24 Hours: Temp Pulse Resp BP Pulse Ox 97.6 F 92 H 18 110/78 94 L 10/29/17 08:00 10/29/17 08:00 10/29/17 08:00 10/29/17 08:00 10/29/17 08:00 I & O for Last 24 hours: Intake & Output 10/26/17 10/27/17 10/28/17 10/29/17 23:59 23:59 23:59 23:59 Intake Total 810 / 810 1630 / 1630 1340 / 1340 480 / 480 Output Total 450 / 450 600 / 600 1275 / 1275 Balance 360 / 360 1030 / 1030 65 / 65 480 / 480 Weight 127.573 kg 127.573 kg Microbiology Reports for the Last 24 Hours: Microbiology 10/25/17 12:45 Chest Gram Stain - Final 10/25/17 12:45 Chest Wound Culture - Preliminary Staphylococcus epidermidis 10/27/17 07:45 Sputum - Expectorated Sputum Gram Stain - Final 10/27/17 07:45 Sputum - Expectorated Sputum Sputum Culture - Preliminary Yeast 10/25/17 15:00 Blood Blood Culture - Preliminary NO GROWTH AFTER 72 HOURS 10/25/17 15:11 Blood Blood Culture - Preliminary NO GROWTH AFTER 72 HOURS Assessment and Plan (1) Community acquired pneumonia Current visit: Yes Status: Acute Qualifiers: Laterality: right Lung location: upper lobe of lung Qualified Code(s): J18.1 - Lobar pneumonia, unspecified organism Category: Medical Code(s): J18.9 - Pneumonia, unspecified organism (2) Hematoma of pacemaker pocket Current visit: Yes Status: Acute Category: Medical Code(s): T82.837A - Hemorrhage due to cardiac prosthetic devices, implants and grafts, initial encounter (3) Congestive heart failure Current visit: Yes Status: Acute Category: Medical Code(s): I50.9 - Heart failure, unspecified (4) Chronic anemia Current visit: No Status: Acute Category: Medical Code(s): D64.9 - Anemia , unspecified (5) Atrial fibrillation Current visit: No Status: Chronic Qualifiers: Atrial fibrillation type: chronic Qualified Code(s): I48.2 - Chronic atrial fibrillation Category: Medical Code(s): I48.91 - Unspecified atrial fibrillation (6) CAD (coronary artery disease) Current visit: No Status: Chronic Qualifiers: Coronary Disease-Associated Artery/Lesion type: [place] artery [place] vs. transplanted heart: [place] heart Associated angina: angina presence unspecified Qualified Code(s): I25.10 - Atherosclerotic heart disease of [place] coronary artery without angina pectoris Category: Medical Code(s): I25.10 - Atherosclerotic heart disease of [place] coronary artery without angina pectoris (7) Cardiac pacemaker in situ Current visit: No Status: Chronic Category: Medical Code(s): Z95.0 - Presence of cardiac pacemaker (8) Diabetes mellitus Current visit: No Status: Chronic Qualifiers: Diabetes mellitus type: type 2 Diabetes mellitus snf insulin use: without termite inspector use Diabetes mellitus complication status: without complication Qualified Code(s): E11.9 - Type 2 diabetes mellitus without complications Category: Medical Code(s): E11.9 - Type 2 diabetes mellitus without complications (9) HHD (hypertensive heart disease) Current visit: No Status: Chronic Qualifiers: Heart failure presence: with heart failure Qualified Code(s): I11.0 - Hypertensive heart disease with heart failure Category: Medical Code(s): I11.9 - Hypertensive heart disease without heart failure (10) HLD (hyperlipidemia) Current visit: No Status: Chronic Qualifiers: Hyperlipidemia type: other hyperlipidemia Qualified Code(s): E78.4 - Other hyperlipidemia Category: Medical Code(s): E78.5 - Hyperlipidemia, unspecified The patient's infection will respond to the chosen ABx?: Yes Is the patient receiving the right drug, dose, and route?: Yes Could a more targeted ABx be ordered?: No (D/C TODAY ON PO ABX)
--- NOTE | 2017-11-01 22:07 | Discharge Summary ---
General - General Admission date:: 10/25/17 Discharge date: 10/29/17 HPI HPI: Mr. Hernadez is a 77-year-old male with a history of hyperlipidemia, hypertension , DVT of the left leg, type 2 diabetes, ASCVD, obstructive sleep apnea and uses BiPAP, peripheral vascular disease, CHF, COPD and anemia who presented to [facility] emergency room feeling short of breath with a cough, fever, and bleeding from around his pacer site. He was seen in the office of after which he developed a slight cough with some sputum production. He felt that he had a fever. He denies sore throat, runny nose, ear pain, and chest pain. In the emergency room he was found to have pneumonia and was admitted for further evaluation and treatment. Hospital Course Hospital Course: The patient was started on pneumonia protocol and cardiology was consulted. Cardiology saw the patient and discontinued aspirin, Plavix and Xarelto. They did not have any plans to take the patient to the operating room due to the hematoma. They preferred conservative management. The patient's pneumonia symptoms improved. The left pacer site had a pocket of blood. A small amount of old dried blood was expressed from the blister. It was cleansed with Hibiclens and a clean dry dressing was applied. There was less erythema and edema. The patient had a repeat CXR showing an improving right upper lobe pneumonia with persistent right perihilar infiltrate with slight increase small bilateral effusions and mild chronic CHF. He was stable to be discharged home on abx for his pneumonia. Cardiology will hold off on restarting anti-platelet therapy and anticoagulant therapy until evaluation in their office. Of note, his sputum sample did grow out yeast and his wound culture was positive for staph epidermidis. Blood cultures were normal. Objective Vital signs: Temp Pulse Resp BP Pulse Ox 97.6 F 92 H 18 110/78 94 L 10/29/17 08:00 10/29/17 08:00 10/29/17 08:00 10/29/17 08:00 10/29/17 08:00 Narrative: - *Routine HEENT Exam Head: Present: normocephalic, atraumatic Eye: Present: PERRL. Absent: conjunctival icterus, scleral injection ENT: Present: mucous membranes moist, oropharynx clear - *Routine Neck Exam Present: supple. Absent: carotid bruit, lymphadenopathy, thyromegaly - *Routine Respiratory Exam Comments: Crackles in right upper lobe posteriorly. - *Routine Cardiovascular Exam Present: RRR Comments: Mostly paced rhythm on monitor strips. - *Routine Abdominal Exam Present: soft, normoactive bowel sounds. Absent: tenderness, guarding - *Routine Extremities Exam Present: edema (Trace). Absent: calf tenderness - *Routine Skin Exam Comments: Left upper chest with pacer. Wound appears erythemic and edematous. Some blood on the dressing. Pockets of blood noted superficially. - *Routine Neurological Exam Present: alert, oriented X3 DS: Diagnosis - Discharge Diagnosis (1) Community acquired pneumonia Status: Acute (2) Hematoma of pacemaker pocket Status: Acute (3) Congestive heart failure Status: Acute (4) Chronic anemia Status: Acute (5) Atrial fibrillation Status: Chronic (6) CAD (coronary artery disease) Status: Chronic (7) Cardiac pacemaker in situ Status: Chronic (8) Diabetes mellitus Status: Chronic (9) HHD (hypertensive heart disease) Status: Chronic (10) HLD (hyperlipidemia) Status: Chronic Discharge Plan - Patient Discharge Instructions ACTIVITY: Continue current activity DIET: diabetic diet, low fat, low cholesterol Patient Instructions: Congestive Heart Failure (Alternative Therapy), DI for Pneumonia -- Adult, Low-Sodium Diet, DI for Hypoxia - Follow up Plan Follow up with: Edy Dhillon MD [Primary Care Provider] - 1 week Disposition: Home, Self-Fpc Medications: Home Medications Medication Instructions Recorded Confirmed Type isosorbide mononitrate ER 120 mg 120 mg PO DAILY 07/10/17 10/30/17 History tablet,extended release 24 hr polyethylene glycol 3350 17 gram 17 g PO DAILY PRN 07/10/17 10/30/17 History oral powder packet cholecalciferol (vitamin D3) 1,000 1,000 unit PO DAILY 07/14/17 10/30/17 History unit capsule cyanocobalamin (vit B-12) 1,000 1,000 mcg PO DAILY 07/14/17 10/30/17 History mcg tablet eplerenone 25 mg tablet 25 mg PO BID tab 07/14/17 10/30/17 History lansoprazole 30 mg delayed 30 mg PO HS 09/29/17 10/30/17 History release,disintegrating tablet dilTIAZem HCl [Diltiazem 240mg 240 mg PO DAILY 10/02/17 10/30/17 History 24Hr ER Cap] Terazosin HCl [Hytrin 1mg Capsule] 1 mg PO HS 10/17/17 10/30/17 History Torsemide [Demadex] 40 mg PO DAILY 10/17/17 10/30/17 History clonazePAM [Klonopin 1mg tablet] 1 mg PO HS 10/26/17 10/30/17 History Cefdinir [Omnicef 300mg Capsule] 300 mg PO BID 10/30/17 10/30/17 History Prescriptions/Medication Reconciliation: Continue isosorbide mononitrate ER 120 mg tablet,extended release 24 hr 120 mg PO DAILY polyethylene glycol 3350 17 gram oral powder packet 17 g PO DAILY PRN PRN Reason: Constipation cyanocobalamin (vit B-12) 1,000 mcg tablet 1,000 mcg PO DAILY cholecalciferol (vitamin D3) 1,000 unit capsule 1,000 unit PO DAILY lansoprazole 30 mg delayed release,disintegrating tablet 30 mg PO HS eplerenone 25 mg tablet 25 mg PO BID tab Torsemide [Demadex] 40 mg PO DAILY Terazosin HCl [Hytrin 1mg Capsule] 1 mg PO HS clonazePAM [Klonopin 1mg tablet] 1 mg PO HS dilTIAZem HCl [Diltiazem 240mg 24Hr ER Cap] 240 mg PO DAILY Discontinued clopidogrel 75 mg tablet 75 mg PO DAILY Rivaroxaban [Xarelto 15mg tablet] 15 mg PO DAILY Aspirin [Aspir 81] 81 mg PO DAILY No Action Cefdinir [Omnicef 300mg Capsule] 300 mg PO BID
== END 2017-10-29 10:45 | disposition home or self-care (01) ==
LOC: ER 10:38 → INTOOBSV 13:10 → 2ND 13:10
PROVIDERS: ADMIT Family Medicine; ATTEND Family Medicine

== ENCOUNTER → 2018-03-02 12:39 | Outpatient (CLI) | payer MEDICARE, OTHER, SELFPAY ==
[2018-03-02 13:11] LABS: Basophils % 0.4 % (0.1-2.0); Eosinophils # 0.1 K/mm3 (0.0-0.4); Eosinophils % 2.7 % (0.1-12.0); Lymphocytes # 1.8 K/mm3 (0.7-4.5); Lymphocytes % 34.2 K/mm3 (10-50); Mean Corpuscular HGB Conc 32.2 g/dL (31.8-35.4); Mean Corpuscular Hemoglobin 31.5 pg (27.0-31.2); Mean Corpuscular Volume 97.5 fl (80-94); Mean Platelet Volume 8.7 fl (7.4-10.4); Monocytes # 0.3 K/mm3 (0.1-1.0); Neutrophils % 56.8 % (37.0-80.0); Platelet Count 193 K/mm3 (142-424); Red Blood Count 3.49 M/mm3 (4.60-6.20); Red Cell Distribution Width 15.9 % (11.5-17.5); White Blood Count 5.3 K/mm3 (4.8-10.8)
[2018-03-02 13:58] LABS: Anion Gap 9.9 mEq/L (5-15); Blood Urea Nitrogen 27 mg/dL (7-18); Carbon Dioxide 31 mmol/L (21.0-32.0); Chloride 102 mmol/L (98-107); Creatinine,Serum 2.01 mg/dL (0.70-1.30); Estimated Glomerular Filt Rate 32 ml/min (>60); GFR (African American) 39 ML/MIN (>60); Glucose 123 mg/dL (74-106); Potassium 3.9 mmoL/L (3.5-5.1); Sodium 139 mmol/L (136-145)
== END ==
PROVIDERS: PCP Family Medicine; Visit Provider Internal Medicine
DX: I48.2 Chronic atrial fibrillation (principal)
CPT/HCPCS: 36415; 80048; 85025

== ENCOUNTER → 2018-05-07 07:37 | Outpatient (CLI) | payer MEDICARE, OTHER, SELFPAY ==
--- NOTE | 2018-05-07 07:39 | CT_ITS ---
CT head/brain wo con HISTORY: Dizziness, ITS.REASON: dizziness ORDERING PHYSICIAN: Dennis Avina MD PATIENT AGE: 77 years COMPARISON: 10/13/2016 TECHNIQUE: Axial images obtained without contrast. Brain and bone windows reviewed. All CT scans at the facility use one or more dose reduction, viz: automated exposure control, ma/kV adjustment per patient size (including targeted exams where dose is matched to indication, i.e. head), or iterative reconstruction technique. FINDINGS: No midline shift, mass effect, intracranial hemorrhage, hydrocephalus, or extra-axial fluid collection is evident. There is generalized atrophy with periventricular ischemic gliotic change. No midline shift, mass effect, intracranial hemorrhage, or hydrocephalus. The calvarium has an unremarkable appearance. No mastoid effusion. No sinus air-fluid levels.. There is a small retention cyst in the right aspect of the frontal sinus inferiorly. IMPRESSION: No acute intracranial findings
--- NOTE | 2018-05-07 07:39 | CI_ITS ---
Cerebrovascular Exam Indications: 433.10 Occlusion/stenosis of carotid artery without cerebral infarction. 780.4 Dizziness and giddiness. IMPRESSIONS 1. The bilateral vertebral arteries are patent with normal antegrade flow. 2. Study suggests 20-49% stenosis involving the right internal carotid artery. 3. Study suggests 50-69% stenosis involving the left internal carotid artery. Disease progression from the study of 24-Mar-2008. Carotid duplex study. Complete study and Doppler flow study including spectral analysis, color and loera scale imaging. Height: Height: 180.3cm. Height: 71in. Weight: Weight: 117.9kg. Weight: 259.5lb. Body mass index: BMI: 36.3kg/m^2. Body surface area: BSA: 2.47m^2. Location: Vascular laboratory. Patient status: Outpatient. Tables: Arterial flow: + +--------+--------+ Location V sys V ed + +--------+--------+ Right CCA - proximal 58.1cm/s 18.9cm/s + +--------+--------+ Right CCA - distal 61.3cm/s 15.7cm/s + +--------+--------+ Right ECA 216cm/s -------- + +--------+--------+ Right ICA - proximal 82.5cm/s 21.6cm/s + +--------+--------+ Right ICA - mid 101cm/s 25.5cm/s + +--------+--------+ Right ICA - distal 118cm/s 38.3cm/s + +--------+--------+ Right vertebral 40.3cm/s -------- + +--------+--------+ Left CCA - proximal 71.7cm/s 18.7cm/s + +--------+--------+ Left CCA - distal 68.8cm/s 19.6cm/s + +--------+--------+ Left ECA 151cm/s -------- + +--------+--------+ Left ICA - proximal 205cm/s 54cm/s + +--------+--------+ Left ICA - mid 182cm/s 37.3cm/s + +--------+--------+ Left ICA - distal 142cm/s 33.4cm/s + +--------+--------+ Left vertebral 36.3cm/s -------- + +--------+--------+ Velocity ratios: + + + + + + Right, V sys Right, V ed Left, V sys Left, V ed + + + + + + Max ICA/dist CCA 1.92 2.44 2.98 2.76 + + + + + + (Report amended ) Electronically signed by: Cecil Mosqueda [id number]
== END ==
PROVIDERS: PCP Family Medicine; Visit Provider Internal Medicine
DX: E11.9 Type 2 diabetes mellitus without complications (principal); E78.5 Hyperlipidemia, unspecified; I11.9 Hypertensive heart disease without heart failure; I45.10 Unspecified right bundle-branch block; I48.2 Chronic atrial fibrillation; I50.23 Acute on chronic systolic (congestive) heart failure; I70.1 Atherosclerosis of renal artery; I73.9 Peripheral vascular disease, unspecified; N18.4 Chronic kidney disease, stage 4 (severe); R06.00 Dyspnea, unspecified; R42 Dizziness and giddiness; Z79.01 Long term (current) use of anticoagulants; Z95.0 Presence of cardiac pacemaker; I20.9 Angina pectoris, unspecified; I49.3 Ventricular premature depolarization; R00.0 Tachycardia, unspecified; R20.0 Anesthesia of skin
CPT/HCPCS: 70450; 93880

== ENCOUNTER → 2018-05-31 10:51 | Outpatient (CLI) | payer MEDICARE, OTHER, SELFPAY ==
[2018-05-31 12:34] LABS: Digoxin 0.77 ng/mL (1.15-2.56)
== END ==
PROVIDERS: Visit Provider Urology
DX: I50.9 Heart failure, unspecified (principal); R42 Dizziness and giddiness
CPT/HCPCS: 36415; 80162

== ENCOUNTER → 2018-06-05 17:34 | Outpatient (CLI) | payer MEDICARE, OTHER, SELFPAY ==
[2018-06-05 19:21] LABS: Adenovirus F 40/41, stool Not Detected (NotDetected); Astrovirus Not Detected (NotDetected); Campylobacter Not Detected (NotDetected); Clostridium Difficile A/B, PCR Not Detected (NotDetected); Cryptosporidium Not Detected (NotDetected); Cyclospora Cayetanesis Not Detected (NotDetected); Entamoeba histolytica Not Detected (NotDetected); Enteroaggregative E coli Not Detected (NotDetected); Enteropathogenic E coli Not Detected (NotDetected); Enterotoxigenic E coli Not Detected (NotDetected); Giardia lamblia Not Detected (NotDetected); Norovirus Not Detected (NotDetected); Plesimonas Shigalloides, PCR Not Detected (NotDetected); Rotavirus A Not Detected (NotDetected); Salmonella, PCR Not Detected (NotDetected); Sapovirus Not Detected (NotDetected); Shiga-like toxin E coli Not Detected (NotDetected); Shigella Enterovasive E coli Not Detected (NotDetected); Vibrio Cholerae Not Detected (NotDetected); Vibrio, PCR Not Detected (NotDetected); Yersinia Entercolitica, PCR Not Detected (NotDetected)
[2018-06-05 19:51] LABS: Occult Blood,Stool Negative (Negative)
[2018-06-05 19:51] LABS: Occult Blood,Stool Negative (Negative)
[2018-06-05 19:51] LABS: Occult Blood,Stool Negative (Negative)
== END ==
PROVIDERS: PCP Family Medicine; Visit Provider Nurse Practitioner Acute Care
DX: R19.7 Diarrhea, unspecified (principal); R19.4 Change in bowel habit
CPT/HCPCS: 82272; 87507; G0328

== ENCOUNTER → 2018-07-12 10:25 | Outpatient (POV) | payer MEDICARE, OTHER, SELFPAY | PROVIDERS: Visit Provider Nurse Practitioner Acute Care | DX: Z00.00 Encounter for general adult medical examination without abnormal findings (principal) ==

== ENCOUNTER → 2018-08-16 14:19 | Outpatient (POV) | payer MEDICARE, OTHER, SELFPAY | PROVIDERS: Visit Provider Nurse Practitioner Acute Care | DX: Z00.00 Encounter for general adult medical examination without abnormal findings (principal) ==

== ENCOUNTER → 2018-09-21 13:47 | Outpatient (CLI) | payer MEDICARE, OTHER, SELFPAY ==
[2018-09-21 15:20] LABS: Blood Urea Nitrogen 21 mg/dL (7-18); Estimated Glomerular Filt Rate 29 ml/min (>60); GFR (African American) 35 ML/MIN (>60)
== END ==
PROVIDERS: Visit Provider Internal Medicine Gastroenterology
DX: Z01.812 Encounter for preprocedural laboratory examination (principal)
CPT/HCPCS: 36415; 82565; 84520

== ENCOUNTER → 2018-09-22 09:24 | Outpatient (CLI) | payer MEDICARE, OTHER, SELFPAY ==
--- NOTE | 2018-09-22 09:28 | CT_ITS ---
CT abdomen pelvis wo con CLINICAL INDICATION: Diarrhea, 80 pound weight loss, ITS.REASON: DIARRHEA, LOW ABD PAIN, WGT LOSS ORDERING PHYSICIAN: Malachi Lehman MD PATIENT AGE: 78 years COMPARISON: 12/06/2012 TECHNIQUE: Axial images obtained with sagittal and coronal reformats. All CT scans at the facility use one or more dose reduction, viz: automated exposure control, ma/kV adjustment per patient size (including targeted exams where dose is matched to indication, i.e. head), or iterative reconstruction technique. PROCEDURE: Oral Contrast: Redicat IV Contrast: None . FINDINGS: Lower thoracic images show a small right pleural effusion. 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 Postcholecystectomy change. The liver, spleen, adrenal glands, pancreas, and kidneys have an unremarkable unenhanced appearance. No renal or ureteral calculi. Prostate is slightly enlarged at 5 cm with some coarse calcification. There is mild thickening of the urinary bladder wall which may in part be due to nondistention. Unremarkable appendix. No intestinal obstruction or free air. No evidence of diverticulitis. No acute bony findings. IMPRESSION: 1. Cardiomegaly with small right pleural effusion 2. No acute findings of the abdomen and pelvis
== END ==
PROVIDERS: PCP Family Medicine; Visit Provider Internal Medicine Gastroenterology
DX: R10.30 Lower abdominal pain, unspecified (principal); R19.7 Diarrhea, unspecified; R63.4 Abnormal weight loss
CPT/HCPCS: 74176

== ENCOUNTER → 2018-10-21 08:34 | Outpatient (CLI) | payer MEDICARE, OTHER, SELFPAY ==
[2018-10-21 13:58] LABS: Alanine Aminotransferase 17 U/L (12-78); Albumin Level 3.8 gm/dL (3.4-5.0); Albumin/Globulin Ratio 1.2 (1.1-1.8); Alkaline Phosphatase 44 U/L (46-116); Anion Gap 14.4 mEq/L (5-15); Aspartate Amino Transferase 11 U/L (15-37); Bilirubin,Total 0.4 mg/dL (0.2-1.0); Blood Urea Nitrogen 19 mg/dL (7-18); Calcium 8.5 mg/dL (8.5-10.1); Carbon Dioxide 28 mmol/L (21.0-32.0); Chloride 104 mmol/L (98-107); Chol/HDL Ratio 6.2 (1-3.5); Cholesterol 206 mg/dL (140-200); Estimated Glomerular Filt Rate 32 ml/min (>60); GFR (African American) 39 ML/MIN (>60); Globulin 3.2 gm/dl (1.3-3.2); Glucose 122 mg/dL (74-106); HDL Cholesterol 33 mg/dL (27-67); LDL Cholesterol 132 mg/dL (0-130); Potassium 3.4 mmoL/L (3.5-5.1); Sodium 143 mmol/L (136-145); Triglycerides 206 mg/dL (30-200); VLDL Cholesterol 41 mg/dL (0-40)
[2018-10-21 15:36] LABS: Prostate Specific Ag Screen 25.5 ng/mL (0.0-4.0)
[2018-10-21 15:55] LABS: Hemoglobin A1C 6.1 % (0.0-7.0)
== END ==
PROVIDERS: Visit Provider Family Medicine
DX: Z12.5 Encounter for screening for malignant neoplasm of prostate (principal); E78.5 Hyperlipidemia, unspecified; E11.9 Type 2 diabetes mellitus without complications; Z79.84 Long term (current) use of oral hypoglycemic drugs
CPT/HCPCS: 36415; 80053; 80061; 83036; G0103

== ENCOUNTER → 2018-12-28 11:43 | Outpatient (CLI) | payer MEDICARE, OTHER, SELFPAY ==
[2018-12-28 14:16] LABS: Prostate Specific Ag Screen 23.7 ng/mL (0.0-4.0)
== END ==
PROVIDERS: Visit Provider Urology
DX: Z12.5 Encounter for screening for malignant neoplasm of prostate (principal); R97.20 Elevated prostate specific antigen [PSA]
CPT/HCPCS: 36415; G0103

== ENCOUNTER → 2019-02-21 07:58 | Outpatient (CLI) | payer MEDICARE, OTHER, SELFPAY | PROVIDERS: Visit Provider Urology | DX: R97.20 Elevated prostate specific antigen [PSA] (principal) | CPT/HCPCS: 36415; 84153 ==

== ENCOUNTER → 2019-05-21 10:49 | Outpatient (CLI) | payer MEDICARE, OTHER, SELFPAY ==
[2019-05-24 10:45] LABS: PSA, Free 3.03 ng/mL; Prostate Specific Ag 24.6 ng/mL (0.0-4.0)
== END ==
PROVIDERS: Visit Provider Urology
DX: R97.20 Elevated prostate specific antigen [PSA] (principal)
CPT/HCPCS: 36415; 84153; 84154

== ENCOUNTER → 2019-05-27 13:39 | Outpatient (CLI) | payer MEDICARE, OTHER, SELFPAY ==
--- NOTE | 2019-05-27 14:23 | CT_ITS ---
PROCEDURE: CT LUMBAR SPINE WO CON CLINICAL HISTORY: BACK PAIN Low back pain, recent falls with injury and pain COMPARISON: No exams were available for comparison TECHNIQUE: Axial images obtained with sagittal and coronal reformats. All CT scans at the facility use one or more dose reduction, viz: automated exposure control, ma/kV adjustment per patient size (including targeted exams where dose is matched to indication, i.e. head), or iterative reconstruction technique. FINDINGS: There is normal alignment. No fracture or dislocation is evident. There is degenerative disc disease at L2-L3 with mild bulging disc with mild bilateral foraminal narrowing. The Degenerative disc disease is present at L3-L4 with mild bulging disc and facet and ligamentum hypertrophy with hyoh-ni-bjhqueje bilateral foraminal narrowing. Mild bulging disc L4-5 with facet ligamentum hypertrophy with mild to moderate bilateral foraminal narrowing L5-S1: Mild facet ligamentum hypertrophy with mild bulging disc with mild to moderate bilateral foraminal narrowing. There is a small right pleural effusion IMPRESSION: 1. No acute fracture lytic or blastic change. 2. Multilevel lumbar spondylosis with bulging disc along with facet and ligamentum hypertrophy with bilateral foraminal narrowing. 3. No bony canal stenosis. 4. Small right pleural effusion Dictated by: Cecil Mosqueda MD 05/27/2019 18:08 Electronically signed by Ceicl Mosqueda MD in [place] 05/28/2019 11:34
[2019-05-27 14:27] LABS: Blood Urea Nitrogen 25 mg/dL (7-18); Creatinine,Serum 2.51 mg/dL (0.70-1.30); Estimated Glomerular Filt Rate 25 ml/min (>60); GFR (African American) 30 ML/MIN (>60)
== END ==
PROVIDERS: PCP Family Medicine; Visit Provider Urology
DX: M54.5 Low back pain (principal)
CPT/HCPCS: 36415; 72131; 82565; 84520

== ENCOUNTER → 2019-06-17 15:31 | Outpatient (CLI) | payer MEDICARE, OTHER, SELFPAY ==
[2019-06-17 16:57] LABS: Prostate Specific Ag, Diagnost 26.41 ng/mL (0.0-4.0)
== END ==
PROVIDERS: Visit Provider Urology
DX: R97.20 Elevated prostate specific antigen [PSA] (principal)
CPT/HCPCS: 36415; 84153

== ENCOUNTER → 2019-07-13 13:16 | Outpatient (CLI) | payer MEDICARE, OTHER, SELFPAY ==
--- NOTE | 2019-07-13 13:24 | XR_ITS ---
PROCEDURE: XR LUMBAR SPINE BENDING ONLY CLINICAL INDICATION: LOW BACK PAIN Back pain COMPARISON: CT LUMBAR SPINE WO CON from 05/27/2019 FINDINGS: Flexion and extension views and neutral views are obtained of the lumbar spine. There is mild retrolisthesis of L3 on L4 of 5 mm which does not significantly changed in flexion or extension. No fracture or dislocation. No abnormal translation apparent. There is mild multilevel degenerative disc disease from L1-S1 IMPRESSION: Degenerative changes, no abnormal subluxation Dictated by: Cecil Mosqueda MD 07/13/2019 14:16 Electronically signed by Cecil Mosqueda MD in [facility] 07/13/2019 14:16
== END ==
PROVIDERS: PCP Family Medicine; Visit Provider Neurological Surgery
DX: M54.5 Low back pain (principal)
CPT/HCPCS: 72120

== ENCOUNTER → 2019-08-18 08:49 | Outpatient (CLI) | payer MEDICARE, OTHER, SELFPAY ==
[2019-08-18 10:45] LABS: Albumin Level 1.4 g/dL (3.4-5.0); Albumin/Globulin Ratio 0.2 (1.1-1.8); Alkaline Phosphatase 59 U/L (46-116); Anion Gap 13.5 mEq/L (5-15); Aspartate Amino Transferase 4 U/L (15-37); Bilirubin,Total 0.6 mg/dL (0.2-1.0); Blood Urea Nitrogen 19 mg/dL (7-18); Carbon Dioxide 28 mmol/L (21.0-32.0); Chloride 106 mmol/L (98-107); Chol/HDL Ratio 6.2 (1-3.5); Cholesterol 229 mg/dL (140-200); Globulin 5.8 gm/dl (1.3-3.2); Glucose 94 mg/dL (74-106); HDL Cholesterol 37 mg/dL (27-67); LDL Cholesterol 157 mg/dL (0-130); Potassium 4.5 mmoL/L (3.5-5.1); Prostate Specific Ag, Diagnost 25.38 ng/mL (0.0-4.0); Sodium 143 mmol/L (137-145); Total Protein,Serum 7.2 g/dL (6.4-8.2); Triglycerides 175 mg/dL (30-200); VLDL Cholesterol 35 mg/dL (0-40)
[2019-08-18 10:55] LABS: Alanine Aminotransferase 18 U/L (21-72); Calcium 8.3 mg/dL (8.5-10.1); Creatinine,Serum 1.22 mg/dL (0.70-1.30); Estimated Glomerular Filt Rate 57 ml/min (>60); GFR (African American) 69 ML/MIN (>60)
== END ==
PROVIDERS: Visit Provider Family Medicine
DX: E78.5 Hyperlipidemia, unspecified (principal); E11.9 Type 2 diabetes mellitus without complications; R97.20 Elevated prostate specific antigen [PSA]; Z79.84 Long term (current) use of oral hypoglycemic drugs
CPT/HCPCS: 36415; 80053; 80061; 83036; 84153

== ENCOUNTER → 2019-12-06 09:25 | Outpatient (CLI) | payer MEDICARE, OTHER, SELFPAY ==
--- NOTE | 2019-12-06 | CA_ITS ---
APPROVED REPORT Exam: Pharmacologic Technologist: Sybil Bocanegra Ht: 5 ft 11 in Wt: 260 lbs BSA: 2.36 m2 HR: 80 bpm BP: 146/78 mmHg Indications: Chest pain Stress Test Details Test: LEXISCAN HR Resting HR: 80 bpm Max Heart Rate (APMHR): 139 bpm Max HR Achieved: 83 bpm Target HR (85% APMHR): 118 bpm % of APMHR: 59 Recovery HR: 80 bpm BP Resting BP: 146.0/78.0 mmHg Max BP: 146.0/78.0 mmHg Recovery BP: 132.0/89.0 mmHg ECG Clinical Exercise duration: 04:01 min Highest Stage Achieved: Exercise capacity: 1.0 METs Stress ECG Conclusion Resting ECG: Ventricular paced rhythm. Symptoms: Nausea, malaise, headache Arrhythmias/Ectopy: None ST-T Changes: No significant changes Conclusion: Unremarkable Lexiscan stress. Myoview images reported separately. Electronically signed by : Quirino Ceron, 12/06/2019 18:16:40
--- NOTE | 2019-12-06 09:25 | NM_ITS ---
APPROVED REPORT Exam: Nuclear Stress Test Indication: SOB, CAD, CABG, CHF, Obesity, HTN, DM, High cholesterol, Family history Patient Location: Outpatient Stress Tech: Tammie Dutton [place] Tech:Pat Rivera, ARRT, RT (R)(N) Ht: 5 ft 11 in Wt: 265 lbs HR: 80 bpm BP: 146/78 mmHg BSA: 2.38 m2 BMI: 36.9 History: SOB, CAD, CABG, CHF, Obesity, HTN, DM, High cholesterol, Family history Procedure: Patient received a 0.4 mg of intravenous Lexiscan, resting heart rate 80 bpm, resting blood pressure 146/78 mmHg, with Lexiscan maximum heart rate achived was 80 bpm which is Less than 85 % of the maximum predicted heart rate and blood pressure was 137/68 mmHg. With Lexiscan, patient denied any complaint of chest pain. Electrocardiogram Resting electrocardiogram showed electronically paced rhythm. With Lexiscan there is less than 1.[address] segment depression noted from the baseline EKG. The EKG portion of the Lexiscan sestamibi is nondiagnostic. Cardiac Stress and Resting SPECT Images: Cardiac Stress and Resting SPECT images were obtained using technetium 99m Myoview 32.8 mCi stress and 10.05 mCi at rest. Gated SPECT with analysis of segmental wall motion and calculation of the ejection fraction also done. Cardiac stress and resting SPECT images show fixed defect in the posterolateral wall consistent with area of myocardial scarring without significant jayleen-infarct ischemia. Computer derived ejection fraction is 33% with left ventricular global hypokinesis. Right ventricle is mildly enlarged with normal contractility. Conclusion: 1. The EKG portion of the Lexiscan Myoview is nondiagnostic. 2. Scintigraphic evidence of myocardial scarring involving the posterolateral wall without significant jayleen-infarct ischemia, computer derived ejection fraction 33% with left ventricle global hypokinesis, right ventricle is mildly enlarged with normal contractility. 3. Abnormal Lexiscan Myoview study. Electronically signed by : Quirino Ceron, 12/06/2019 18:19:32
--- NOTE | 2019-12-06 09:42 | CA_ITS ---
APPROVED REPORT EXAM: Comprehensive 2D, Doppler, and color-flow Echocardiogram Store Stocker: Leonora Galvan RDCS Ht: 5 ft 10 in Wt: 269lbs BSA: 2.37 BP: 140/72 mmHg Indications: CP HTN SOA CHRONIC AF 2D Dimensions LVOT 2.13 cm (M/F) 1.5-2.5 M-Mode Dimensions RVDd 3.54 cm (0.9-2.6) LVDd 7.08 cm (3.5-5.7) LVDs 6.48 cm (3.5-5.7) IVSd 0.72 cm (0.6-1.1) PWd 0.80 cm (0.6-1.1) EF (Teich) 18.20% FS 8.50% EDV (Teich) 262.10 mL ESV (Teich) 214.50 mL LV Diastology E/A Ratio 3.10 Mitral Valve MV A Velocity 22.00 (40-130 cm/s) MV PHT 57.00 ms Left Ventricle Left atrium is mildly enlarged, left ventricle is normal size, mild concentric left ventricular hypertrophy, visually estimated ejection fraction 40%, there is marked hypokinesis involving the inferior basal and posterolateral wall. Diastolic parameters are inconclusive. Right Ventricle Right atrium and right ventricle are mildly enlarged with normal contractility, there is a pacemaker lead seen right atrium and right ventricle. Aortic Valve Aortic valve is thickened and calcified leaflet continue to display mobility, there is no aortic stenosis or aortic insufficiency. Mitral Valve Mitral valve leaflets are minimally thickened, there is mild mitral regurgitation. Tricuspid Valve Tricuspid valve is grossly normal, there is mild tricuspid regurgitation, tricuspid regurgitation jet velocity is inadequate for calculation of the right ventricular systolic pressure. Pulmonic Valve Pulmonic valve is poorly visualized. Great Vessels Aortic root is normal size. Pericardium No significant pericardial effusion noted. Conclusion 1. Mildly enlarged left atrium, normal left ventricular size, mild concentric left ventricular hypertrophy, visually estimated ejection fraction 40% with segmental wall motion abnormality described above, diastolic parameters are inconclusive. 2. Mildly enlarged right ventricle with normal contractility. 3. Mild mitral and tricuspid regurgitation. 4. No significant pericardial effusion noted. Electronically signed by : Quirino Ceron, 12/06/2019 18:49:19
--- NOTE | 2019-12-06 10:26 | HMH.ITSHM ---
Current Home Medications as stated by this patient Abbe Hernadez or international sales representative. []TORSEMIDE TERAZOSIN SITAGLIPTIN RIVAROXABAN NITRO METOPROLOL EPLERENONE DIGOXIN CLONAZEPAM ACETAMINOPHEN
== END ==
PROVIDERS: PCP Family Medicine; Visit Provider Urology
DX: R07.9 Chest pain, unspecified (principal); E11.9 Type 2 diabetes mellitus without complications; E78.5 Hyperlipidemia, unspecified; I11.9 Hypertensive heart disease without heart failure; I20.9 Angina pectoris, unspecified; I25.10 Atherosclerotic heart disease of native coronary artery without angina pectoris; I45.10 Unspecified right bundle-branch block; I50.23 Acute on chronic systolic (congestive) heart failure; I50.9 Heart failure, unspecified; I70.1 Atherosclerosis of renal artery; I73.9 Peripheral vascular disease, unspecified; N18.2 Chronic kidney disease, stage 2 (mild); N18.4 Chronic kidney disease, stage 4 (severe); R06.00 Dyspnea, unspecified; R42 Dizziness and giddiness; Z79.01 Long term (current) use of anticoagulants; R06.02 Shortness of breath
CPT/HCPCS: 78452; 93017; 93306; A9502; J2785

== ENCOUNTER 2020-01-09 08:39 | Day surgery (SDC) | payer MEDICARE, OTHER, SELFPAY ==
[2020-01-09] VITALS (11 sets, daily range): BP systolic 122–170; BP diastolic 68–108; PULSE 70–81; RESP 16–20; TEMP 36.4; O2SAT 93–98; BMI 36.4
--- NOTE | 2020-01-09 | IR_ITS ---
APPROVED REPORT PROCEDURES Left heart catheterization Left ventriculogram Selective coronary angiogram Selective engage in left internal mammary artery to the LAD Selective engagement of the saphenous vein graft to the right coronary Selective engagement of the saphenous vein graft to circumflex artery INDICATION Coronary artery disease, High risk abnormal Myoview, History of coronary bypass surgery, Angina pectoris Informed consent was obtained prior to the procedure. COMPLICATIONS None Estimated Blood Loss: less than 10 ml TECHNIQUE One percent lidocaine used to anesthetize the right anterior aspect of the wrist. The right radial artery was accessed via the Seldinger technique. A 6 Russian sheath was placed in the right radial artery. 2.5 mg of verapamil, 800 mcg of nitroglycerin, 1mg Lidocaine and 5000 U Heparin were given through the arterial sheath. The trap catheter was also used to perform left heart catheterization, left ventriculogram and selective coronary angiogram. At the end of the procedure the sheath was removed good hemostasis was achieved using Traclet band, patient was transferred to the postop holding area in stable condition. ANGIOGRAPHIC RESULTS The left main artery Has a smooth calcified 10% [id number] stenosis The left anterior descending artery Has ostial 10 to 20% stenosis with proximal calcification and no focal stenosis greater than 20 to 30%. This feeds a moderate sized first diagonal artery. After the first diagonal artery the LAD is occluded The circumflex artery Is nondominant and has a stent in the ostial proximal mid segment. The ostial proximal and midportion of the stents are widely patent however the obtuse marginal artery that it is supplying is proximally subtotally occluded The right coronary artery Is a large dominant vessel and has mild vascular ectasia with diffuse proximal mid vessel and distal 20 to 30% [id number] stenoses The VILLALPANDO ventriculogram reveals Reduced at 40% The left ventricular end-diastolic pressure 10 mmHg The left internal mammary artery is widely patent to the LAD Saphenous vein graft to the right coronary is ostially occluded Saphenous vein graft to the left coronary is ostially occluded IMPRESSION Coronary disease as described above Reduced ejection fraction as described above Normal left ventricular end-diastolic pressure PLAN 1. Medical management Electronically signed by : Dennis Avina, 01/09/2020 11:30:57
[2020-01-09 09:15] LABS: Basophils % 0.4 % (0.1-2.0); Chloride 101 mmol/L (98-107); Eosinophils # 0.2 K/mm3 (0.0-0.4); Eosinophils % 2.6 % (0.1-12.0); Hematocrit 36.2 % (42.0-52.0); Lymphocytes % 31.9 % (10-50); Mean Corpuscular HGB Conc 33.2 g/dL (31.8-35.4); Mean Corpuscular Hemoglobin 32.4 pg (27.0-31.2); Mean Corpuscular Volume 97.5 fl (80-94); Mean Platelet Volume 8.8 fl (7.4-10.4); Monocytes # 0.4 K/mm3 (0.1-1.0); Monocytes % 5.8 % (1.7-9.3); Neutrophils # 3.7 K/mm3 (1.8-7.8); Neutrophils % 59.4 % (37.0-80.0); Platelet Count 161 K/mm3 (142-424); Potassium 4.2 mmoL/L (3.5-5.1); Red Blood Count 3.72 M/mm3 (4.60-6.20); Red Cell Distribution Width 13.1 % (11.5-17.5); Sodium 138 mmol/L (136-145); White Blood Count 6.2 K/mm3 (4.8-10.8)
[2020-01-09 09:18] LABS: Anion Gap 15.2 mEq/L (5-15); Blood Urea Nitrogen 26 mg/dl (9-20); Calcium 8.6 mg/dl (8.4-10.2); Carbon Dioxide 26 mmol/L (22.0-30.0); Creatinine Clearance Estimated 43 mL/min (50-200); Estimated Glomerular Filt Rate 27 ml/min (>60); GFR (African American) 33 ML/MIN (>60); Glucose 163 mg/dl (74-100)
== END 2020-01-09 15:06 | disposition home or self-care (01) ==
LOC: CATHLAB 08:41
PROVIDERS: PCP Family Medicine; Visit Provider Internal Medicine
DX: I25.118 Atherosclerotic heart disease of native coronary artery with other forms of angina pectoris (principal); I25.728 Atherosclerosis of autologous artery coronary artery bypass graft(s) with other forms of angina pectoris; I50.43 Acute on chronic combined systolic (congestive) and diastolic (congestive) heart failure; I11.0 Hypertensive heart disease with heart failure; J44.9 Chronic obstructive pulmonary disease, unspecified; E11.9 Type 2 diabetes mellitus without complications; E78.5 Hyperlipidemia, unspecified; Z95.5 Presence of coronary angioplasty implant and graft; Z91.040 Latex allergy status; Z79.84 Long term (current) use of oral hypoglycemic drugs; Z95.1 Presence of aortocoronary bypass graft; Z88.1 Allergy status to other antibiotic agents; Z79.01 Long term (current) use of anticoagulants; Z99.81 Dependence on supplemental oxygen; Z88.2 Allergy status to sulfonamides
CPT/HCPCS: 80048; 85025; 93459; 99152; C1725; C1769; C1894; J1644; J2405; Q9967

== ENCOUNTER → 2020-03-05 17:07 | Outpatient (CLI) | payer MEDICARE, OTHER, SELFPAY | PROVIDERS: Visit Provider Urology | DX: R97.20 Elevated prostate specific antigen [PSA] (principal) | CPT/HCPCS: 36415; 84153 ==

== ENCOUNTER → 2020-03-07 08:46 | Outpatient (CLI) | payer MEDICARE, OTHER, SELFPAY ==
--- NOTE | 2020-03-07 08:51 | CT_ITS ---
PROCEDURE: CT ABDOMEN PELVIS WO CON CLINICAL INDICATION: back pain/elevated psa BILATERAL FLANK PAIN BACK PAIN, ELEVATED PS, NO INJURY COMPARISON: CT ABDPELWO CT abdomen pelvis wo con from 09/22/2018 TECHNIQUE: Axial images obtained with sagittal and coronal reformats. All CT scans at the facility use one or more dose reduction, viz: automated exposure control, ma/kV adjustment per patient size (including targeted exams where dose is matched to indication, i.e. head), or iterative reconstruction technique. FINDINGS: LOWER THORAX: There is a small right pleural effusion. There is cardiomegaly. There has been a prior CABG. ABDOMEN & PELVIS: There has been a prior cholecystectomy. The liver, spleen, adrenal glands, and pancreas have an unremarkable unenhanced appearance. No renal or ureteral calculi. No hydronephrosis. No intestinal obstruction or free air. There is a mild amount of retained colonic feces with scattered colonic diverticula. No evidence of appendicitis or diverticulitis.. No pelvic mass abnormal fluid collection or focal inflammatory change of the pelvis. The prostate is slightly prominent with some coarse calcification. Prostate measures 5 cm. There are degenerative changes in the lumbar spine. No acute bony findings. IMPRESSION: Hip 1. Small right pleural effusion with cardiomegaly. 2. No acute abdominal or pelvic findings. 3. Mild amount of retained colonic feces with colonic diverticulosis without diverticulitis. Dictated by: Cecil Mosqueda MD 03/08/2020 10:46 Cecil Mosqueda MD in [place] 03/08/2020 10:46
== END ==
PROVIDERS: PCP Family Medicine; Visit Provider Urology
DX: M54.9 Dorsalgia, unspecified (principal); R97.20 Elevated prostate specific antigen [PSA]
CPT/HCPCS: 74176

== ENCOUNTER → 2020-05-28 10:41 | Outpatient (CLI) | payer MEDICARE, OTHER, SELFPAY ==
[2020-05-28 16:07] LABS: Anion Gap 14.7 mEq/L (5-15); Blood Urea Nitrogen 23 mg/dl (9-20); Calcium 9.1 mg/dl (8.4-10.2); Carbon Dioxide 27 mmol/L (22.0-30.0); Chloride 101 mmol/L (98-107); Estimated Glomerular Filt Rate 27 ml/min (>60); GFR (African American) 33 ML/MIN (>60); Glucose 248 mg/dl (74-100); Potassium 4.7 mmoL/L (3.5-5.1); Sodium 138 mmol/L (136-145)
[2020-05-28 16:16] LABS: NT Pro Brain Natriuretic Pep. 2530 pg/mL (0-450)
== END ==
PROVIDERS: Visit Provider Nurse Practitioner Family
DX: R06.02 Shortness of breath (principal); B35.1 Tinea unguium; E11.9 Type 2 diabetes mellitus without complications; E66.9 Obesity, unspecified; I73.9 Peripheral vascular disease, unspecified; L60.0 Ingrowing nail; L60.3 Nail dystrophy; L84 Corns and callosities; M20.11 Hallux valgus (acquired), right foot; M20.12 Hallux valgus (acquired), left foot; M20.41 Other hammer toe(s) (acquired), right foot; M20.42 Other hammer toe(s) (acquired), left foot; M79.674 Pain in right toe(s); M79.675 Pain in left toe(s)
CPT/HCPCS: 36415; 80048; 83880

== ENCOUNTER → 2020-09-20 09:44 | Outpatient (CLI) | payer MEDICARE, OTHER, SELFPAY ==
--- NOTE | 2020-09-20 09:52 | XR_ITS ---
PROCEDURE: XR CHEST 2V CLINICAL HISTORY: dyspnea COMPARISON: CT [facility]WO CT CHEST W/O CONTRAST from 03/02/2017 CR CXR2V XR chest 2V from 10/25/2017 CR CXR2V XR chest 2V from 10/28/2017 CR CXR1VP XR chest portable from 10/30/2017 FINDINGS: There is mild cardiomegaly with mild pulmonary venous congestion suggesting mild CHF. No interstitial or alveolar edema apparent. Biventricular and right atrial pacer wires are present left subclavian approach. There is a small right pleural effusion. There has been a prior CABG. Coronary artery stents and or calcification noted. No acute bony findings. IMPRESSION: Postsurgical changes with mild CHF and small right pleural effusion. Dictated by: Cecil Mosqueda MD 09/20/2020 18:10 Cecil Mosqueda MD in [place] 09/20/2020 18:10
== END ==
PROVIDERS: PCP Family Medicine; Visit Provider Physician Assistant
DX: R06.02 Shortness of breath; E78.5 Hyperlipidemia, unspecified; I11.9 Hypertensive heart disease without heart failure; I25.10 Atherosclerotic heart disease of native coronary artery without angina pectoris; I48.20 Chronic atrial fibrillation, unspecified; I50.9 Heart failure, unspecified; Z79.01 Long term (current) use of anticoagulants
CPT/HCPCS: 71046

== ENCOUNTER → 2020-11-23 10:43 | Outpatient (CLI) | payer MEDICARE, OTHER, SELFPAY ==
--- NOTE | 2020-11-23 10:44 | CA_ITS ---
APPROVED REPORT Pecan Huller: CT Laterality: Bilateral Indications: ольга Doppler Spectral Velocity Analysis ECA (R) 178.00/ cm/s ECA (L) 153.40/14.60 cm/s dICA (R) 91.80/27.60 cm/s dICA (L) 112.20/24.80 cm/s Terell (R) 88.00/28.30 cm/s Terell (L) 116.50/22.30 cm/s pICA (R) 82.20/30.80 cm/s pICA (L) 155.90/35.10 cm/s dCCA (R) 48.80/15.40 cm/s dCCA (L) 65.50/10.30 cm/s pCCA (R) 62.90/19.90 cm/s pCCA (L) 84.10/16.70 cm/s Vert (R) 30.00/11.60 cm/s Vert (L) 55.90/0.40 cm/s ICA/CCA 1.90 ICA/CCA 2.40 Findings Duplex evaluation demonstrates stenosis of the right proximal internal carotid artery in the range of 20-49%. Duplex evaluation demonstrates stenosis of the left proximal internal carotid artery in the range of 50-69%. Duplex evaluation demonstrates antegrade flow of the bilateral Vertebral Arteries. Conclusion Duplex evaluation demonstrates stenosis of the right proximal internal carotid artery in the range of 20-49%. Duplex evaluation demonstrates stenosis of the left proximal internal carotid artery in the range of 50-69%. Duplex evaluation demonstrates antegrade flow of the bilateral Vertebral Arteries. Electronically signed by : Cecil Mosqueda MD 11/23/2020 16:13:47
[2020-11-23 13:17] LABS: Chloride 104 mmol/L (98-107); Potassium 4.4 mmoL/L (3.5-5.1); Sodium 140 mmol/L (136-145)
[2020-11-23 13:20] LABS: Anion Gap 11.4 mEq/L (5-15); Blood Urea Nitrogen 24 mg/dl (9-20); Calcium 8.8 mg/dl (8.4-10.2); Carbon Dioxide 29 mmol/L (22.0-30.0); Estimated Glomerular Filt Rate 27 ml/min (>60); GFR (African American) 33 ML/MIN (>60); Glucose 175 mg/dl (74-100)
[2020-11-23 13:28] LABS: NT Pro Brain Natriuretic Pep. 3570 pg/mL (0-450)
== END ==
PROVIDERS: PCP Family Medicine; Visit Provider Physician Assistant
DX: E78.5 Hyperlipidemia, unspecified (principal); I11.9 Hypertensive heart disease without heart failure; I25.10 Atherosclerotic heart disease of native coronary artery without angina pectoris; I48.20 Chronic atrial fibrillation, unspecified; I50.9 Heart failure, unspecified; R06.00 Dyspnea, unspecified; R06.02 Shortness of breath; R42 Dizziness and giddiness; Z79.01 Long term (current) use of anticoagulants
CPT/HCPCS: 36415; 80048; 83880; 93880

== ENCOUNTER → 2021-01-28 13:52 | Outpatient (CLI) | payer MEDICARE, OTHER, SELFPAY ==
--- NOTE | 2021-01-28 13:52 | CT_ITS ---
PROCEDURE: CT CHEST WO CON CLINICAL INDICATION: Abnormal CXR SOA Abn cxr 09/20/20 COMPARISON: CT [facility]WO CT CHEST W/O CONTRAST from 03/02/[address] ABDOMEN PELVIS WO CON from 03/07/2020 CR XR CHEST 2V from 09/20/2020 TECHNIQUE: Axial images obtained with sagittal and coronal reformats. All CT scans at the facility use one or more dose reduction, viz: automated exposure control, ma/kV adjustment per patient size (including targeted exams where dose is matched to indication, i.e. head), or iterative reconstruction technique. FINDINGS: HEART AND MEDIASTINAL STRUCTURES: Artifact is present from cardiac pacemaker device with biventricular and right atrial leads from the left subclavian approach. There has been a prior CABG with extensive coronary artery calcification noted. There is cardiomegaly. No obvious pericardial effusion. No mediastinal or hilar mass. No evidence of aortic aneurysm. LUNGS AND PLEURAL SPACES: 7 mm noncalcified nodule right lower lobe along the major fissure unchanged. 3 mm noncalcified nodule right lower lobe inferiorly slightly smaller. There are atelectatic changes in the right lower lobe posteriorly with a small right pleural effusion.. 3 mm nodule left upper lobe unchanged. No new nodules are evident. BONY STRUCTURES: No acute bony abnormalities apparent. UPPER ABDOMEN: Mild nonspecific thickening of the distal esophagus. ADDITIONAL FINDINGS: No other significant abnormalities. IMPRESSION: 1. Stable small bilateral pulmonary nodules. 2. Right basilar atelectasis with small right effusion. Dictated by: Cecil Mosqueda MD 01/30/2021 07:52 Cecil Mosqueda MD in [place] 01/30/2021 07:52
== END ==
PROVIDERS: PCP Family Medicine; Visit Provider Internal Medicine Pulmonary Disease
DX: R93.89 Abnormal findings on diagnostic imaging of other specified body structures (principal); R06.00 Dyspnea, unspecified
CPT/HCPCS: 71250; 94060; 94618; 94640; 94726; 94729

== ENCOUNTER → 2021-01-31 14:04 | Outpatient (CLI) | payer MEDICARE, OTHER, SELFPAY ==
[2021-01-31 19:12] LABS: Prostate Specific Ag, Diagnost 30.7 ng/ml (0.0-4.0)
== END ==
PROVIDERS: Visit Provider Urology
DX: R97.20 Elevated prostate specific antigen [PSA] (principal)
CPT/HCPCS: 36415; 84153

== ENCOUNTER → 2021-02-18 11:07 | Outpatient (CLI) | payer MEDICARE, OTHER, SELFPAY ==
[2021-02-18 23:14] LABS: Chloride 102 mmol/L (98-107); Potassium 4.6 mmoL/L (3.5-5.1); Sodium 140 mmol/L (136-145)
[2021-02-18 23:17] LABS: Anion Gap 15.6 mEq/L (5-15); Blood Urea Nitrogen 23 mg/dl (9-20); Carbon Dioxide 27 mmol/L (22.0-30.0); Estimated Glomerular Filt Rate 27 ml/min (>60); GFR (African American) 33 ML/MIN (>60)
[2021-02-18 23:18] LABS: Calcium 8.7 mg/dl (8.4-10.2); Glucose 171 mg/dl (74-100)
== END ==
PROVIDERS: Visit Provider Urology
DX: B35.1 Tinea unguium (principal); E11.8 Type 2 diabetes mellitus with unspecified complications; E66.9 Obesity, unspecified; I73.9 Peripheral vascular disease, unspecified; L60.3 Nail dystrophy; L84 Corns and callosities; M20.11 Hallux valgus (acquired), right foot; M20.12 Hallux valgus (acquired), left foot; M20.41 Other hammer toe(s) (acquired), right foot; M20.42 Other hammer toe(s) (acquired), left foot; M79.674 Pain in right toe(s); M79.675 Pain in left toe(s)
CPT/HCPCS: 36415; 80048

== ENCOUNTER → 2021-02-20 09:13 | Outpatient (CLI) | payer MEDICARE, OTHER, SELFPAY ==
--- NOTE | 2021-02-20 09:14 | CA_ITS ---
APPROVED REPORT EXAM: Comprehensive 2D, Doppler, and color-flow Echocardiogram Assistant Bookkeeper: ARCELIA Jones, RVS Ht: 5 ft 11 in Wt: 260lbs BSA: 2.36 BP: 129/68 mmHg Indications: Chest Pain, Congestive Heart Failure, Atrial Fibrillation, Diabetes, CAD, Hyperlipidemia, Hypertension/HDD ,AICD 2D Dimensions IVSd 1.45 cm LVEF (Visual) 44.80 % PWd 1.42 cm LA Volume 98.90 mL LVDd 6.12 cm LA Volume Index 41.90 mL/m2 (M/F) 16-34 LVDs 4.73 cm Left Atrium 5.93 cm LVOT 2.10 cm (M/F) 1.5-2.5 M-Mode Dimensions LA Diam 5.81 cm (1.9-4.0) Ao Diam 3.65 cm (2.0-3.7) EPSs 0.71 cm TAPSE 1.32 (<1.7) LV Diastology E Decel Time 210.00 (160-240 msec) E/A Ratio 1.97 MED E' 9.40 (< 7 cm/sec) MED A' 2.20 cm/s E'/MED E' Ratio 11.38 (>14) LAT E' 8.40 (<10 cm/sec) LAT A' 2.70 cm/s E/LAT E' Ratio 12.74 (>14) Pulm Vein s 44.00 cm/sec Pulm Vein d 21.00 cm/sec Ar-A Duration 167.00 msec Aortic Valve LVOT Max 104.00 (70-110 cm/s) LVOT VTI 22.21 cm AoV Peak Darius. 133.00 (50-130 cm/s) AO Peak GR. 7.00 mmHg AO Mean GR. 3.80 (<5 mmHg) AO VTI 25.70 (18-25 cm) FRANCIE (VTI) 2.99 (2.5-4.5 cm2) Mitral Valve MV A Velocity 54.00 (40-130 cm/s) E/A Ratio 1.97 MV Decel. Time 210.00 (160-240 ms) Pulmonary Valve PV Peak Velocity 84.00 (50-150 cm/s) Tricuspid Valve TR P. Velocity 238.00 cm/s RAP Estimate 10.00 mmHg RVSP 32.70 mmHg Left Ventricle Left atrium is moderately enlarged, left ventricle is normal size, mild concentric left ventricular hypertrophy, visually estimated ejection fraction 50%, there is abnormal septal motion. Diastolic parameters are inconclusive. Right Ventricle Right atrium and right ventricle are mildly enlarged with normal contractility, there is a pacemaker lead seen right atrium and right ventricle. Aortic Valve Aortic valve is minimally thickened and fibrosed, there is no aortic stenosis or aortic insufficiency. Mitral Valve Mitral valve leaflets are minimally thickened, there is mild mitral regurgitation Tricuspid Valve Tricuspid grossly normal, there is mild tricuspid regurgitation, calculated right ventricular systolic pressure 33 mmHg. Pulmonic Valve Pulmonic valve is poorly visualized. Great Vessels Aortic root is normal size. Pericardium No significant pericardial effusion noted. Conclusion 1. Biatrial enlargement, normal left ventricular size, mild concentric left ventricular hypertrophy, visually estimated ejection fraction 50%, there is abnormal septal motion, diastolic parameters are inconclusive. 2. Mildly enlarged right ventricle with normal contractility. 3. Mild mitral and tricuspid regurgitation, calculated right ventricular systolic pressure 33 mmHg. 4. No significant pericardial effusion noted. Electronically signed by : Quirino Ceron MD 02/21/2021 13:02:17
== END ==
PROVIDERS: PCP Family Medicine; Visit Provider Urology
DX: R06.00 Dyspnea, unspecified (principal); R06.02 Shortness of breath
CPT/HCPCS: 93306

== ENCOUNTER → 2021-02-21 14:42 | Outpatient (POV) | payer MEDICARE, OTHER, SELFPAY ==
[2021-02-21 15:08] VITALS: BP 126/68; PULSE 83; RESP 18; O2SAT 94; BMI 35.5
--- NOTE | 2021-02-21 15:56 | HMH.PMCON ---
Assessment and Plan (1) Degenerative joint disease (DJD) of lumbar spine Status: Chronic Category: Medical Code(s): M47.816 - Spondylosis without myelopathy or radiculopathy, lumbar region (2) Lumbar radiculopathy Status: Chronic Category: Medical Code(s): M54.16 - Radiculopathy, lumbar region - Assessment and plan all Dx Assessment and Plan for all problems:: Patient is unable to undergo an MRI due to defibrillator. He is exhibiting signs of neurogenic claudication. We discussed undergoing an epidural to his L4-L5 area with an epidurogram at that time to determine if he is a candidate for possible mild procedure. Patient is on Xarelto that is prescribed by Dr. Avina's office. We will seek approval for the patient to undergo the lumbar epidural steroid injection at L4-L5 area with an epidurogram at that time. He has tried physical therapy for greater than 6 weeks in the past and continues with home stretching. He is unable to take anti-inflammatories due to anticoagulation therapy. He has tried ice and heat therapies. He has not tried injective therapy. We will see him back in the clinic after his injection for reevaluation of symptoms. Patient is diabetic and is managed with oral medication management. Risks and benefits of the procedure have been explained to the patient. Patient would like to proceed with the procedure. Possible side effects of corticosteroids have been discussed with the patient. Patient has been instructed to contact the clinic with any concerns before the next appointment. Dr. Galaviz has reviewed this note and agrees with this plan of care. This note was dictated using voice recognition software and make contain errors or omissions. HPI - Data of Consult Patient: new to practice Consult date: 02/21/21 Requesting Physician: Claudette Walsh APRN Primary Care Provider: Referral Provider, MD - Consult Narrative Reason for consult: Low back History of present illness: Mr. Hernadez is a 80 year old male who presents to us today for consultation for chronic low back pain. Patient was referred to us by Shane Ibarra. Patient says that he has low back pain with heaviness and weakness in his bilateral lower extremities. This pain has been ongoing for approximately 6 months and is progressively worsened. Patient says standing and walking worsen his pain to his low back which is on bilateral sides of his low back area. He says that he does not have any pain or numbness and tingling in his lower extremities, however, he does have severe weakness. He does have a sensation that his legs are going to give out . He has had bilateral knee replacements with 3 revisions on the right knee. Patient has tried physical therapy for greater than 6 weeks in the past with no relief. He has also tried home stretching. He is unable to take anti-inflammatories due to Xarelto use. He does have a defibrillator. His Xarelto is managed by Dr. Avina's office. Patient says he has not had any injective therapy. He denies any surgical intervention to his lumbar spine or any fractures. The patient has not had any injective therapy to his lumbar spine. He is unable to have an MRI due to his defibrillator. He denies any saddle anesthesia or changes in bowel or bladder habit. He does rate his pain a 7 out of 10. He is using a cane for ambulation today. CC: Claudette Walsh APRN [facility] History I have reviewed the patient's past medical history: Yes Medical History: Reports:: Arrhythmia, Atherosclerotic Heart Disease, Atrial Fibrillation, Cancer, Congestive Heart Failure, Chronic Obstructive Pulmonary Disease (COPD), Coronary Artery Disease, Deep Vein Thrombosis, Diabetes Mellitus Type 2, Gastroesophageal Reflux Disease(GERD), Home Oxygen, Hyperlipidemia, Hypertension, Internal Pacemaker, Peripheral Artery Disease, Renal Disease Denies:: Cerebrovascular Accident, Diabetes Mellitus Type 1, MRSA, Myocardial Infarction,
--- NOTE | 2021-02-25 08:55 | PC.NURSE ---
Spoke with patient, after getting approval from Jignesh Randolph, for patient to hold his Xarelto starting 03/04 for his scheduled procedure on 03/08.
== END ==
PROVIDERS: Visit Provider Clinical Nurse Specialist Family Health
DX: M47.896 Other spondylosis, lumbar region (principal); M54.16 Radiculopathy, lumbar region
CPT/HCPCS: 99202; G0463

== ENCOUNTER 2021-03-08 10:50 | Day surgery (SDC) | payer MEDICARE, OTHER, SELFPAY ==
[2021-03-08 10:54] VITALS: BP 107/58; PULSE 80; RESP 20; TEMP 36.6; O2SAT 98; BMI 35.5
[2021-03-08 11:16] VITALS: BP 131/66; PULSE 80; RESP 18; O2SAT 96
[2021-03-08 11:21] VITALS: BP 141/75; PULSE 80; RESP 18; O2SAT 96
--- NOTE | 2021-03-08 11:25 | HMH.PMPROC ---
- Procedure Date: 03/08/21 Time: 11:25 Anesthesiologist:: Jorge Galaviz MD Complications:: None Pre-procedure Diagnosis:: Degenerative disc disease of lumbar spine with lumbar radiculopathy symptoms and lumbar spinal stenosis with neurogenic claudication symptoms Post-procedure Diagnosis:: Same Indications for Procedure:: Patient is a pleasant 80-year-old white male who we have been treating for low back pain with lumbar radiculopathy symptoms and lumbar spinal stenosis with neurogenic claudication symptoms. He has not had any epidural steroid injections in the past. We will do a lumbar epidural steroid injection with epidurogram to assess levels of stenosis and candidacy for minimally invasive lumbar decompression. Procedure Details:: Informed consent was obtained and the risk and benefits of the procedure was explained to the patient. The patient was taken to the procedure room. The patient was placed prone on the procedure table. The patient was prepped and draped in sterile fashion. C-arm fluoroscopy was used to view the lumbar spine. Skin and subcutaneous tissues were anesthetized using lidocaine. I placed an 18-gauge epidural needle and advanced into the L4-L5 interspace using fluoroscopic guidance and [id number] to air. After confirmation of needle placement in the epidural space with dye I injected 2 mL of lidocaine 1.5% with Depo-Medrol 80 mg. Patient tolerated the procedure well with no complications. Plan and Disposition:: Given the severity of the patient's degenerative changes I will hold off on mill invasive lumbar decompression at this point. We will see if the epidural steroid injections help him. I do believe that he may be a candidate in the future he does have significant stenosis at L4-L5 and L3-L4.
[2021-03-08 11:42] VITALS: BP 123/65; PULSE 80; RESP 20; O2SAT 98
== END 2021-03-08 11:44 | disposition home or self-care (01) ==
LOC: SC.PAINP 10:52
PROVIDERS: PCP Family Medicine; Visit Provider Anesthesiology
DX: M51.16 Intervertebral disc disorders with radiculopathy, lumbar region (principal); M48.062 Spinal stenosis, lumbar region with neurogenic claudication; I25.10 Atherosclerotic heart disease of native coronary artery without angina pectoris; Z95.0 Presence of cardiac pacemaker; E78.5 Hyperlipidemia, unspecified; I48.91 Unspecified atrial fibrillation; I11.0 Hypertensive heart disease with heart failure; I50.9 Heart failure, unspecified; J44.9 Chronic obstructive pulmonary disease, unspecified; K21.9 Gastro-esophageal reflux disease without esophagitis; D64.9 Anemia, unspecified
CPT/HCPCS: 62323; J1040; Q9966

== ENCOUNTER → 2021-04-04 11:33 | Outpatient (POV) | payer MEDICARE, OTHER, SELFPAY ==
[2021-04-04 11:40] VITALS: BP 146/71; PULSE 81; RESP 18; O2SAT 95; BMI 34.8
--- NOTE | 2021-04-04 12:22 | HMH.PAINSOAP ---
[facility] Pain Management SOAP Note Subjective:: Patient is a pleasant 80-year-old white male who presents today for follow-up after lumbar epidural steroid injection. Patient reports that he got 1 week to 10 days of 80% relief after the injection. Unfortunately, the patient's pain returned. He is having low back pain that is worse when trying to straighten from a bent position. He also says leaning back or extension at waist gives him relief. He does rate his pain a 9 out of 10 today. He has had multiple surgeries to his right knee which he feels contributes to much of his weakness in his lower extremities. He does rate his pain a 9 out of 10. The patient does take Xarelto. Patient was evaluated for stenosis at last visit at L4-L5 and L3-L4 was noted to have significant stenosis at these areas during the epidurogram. Dr. Galaviz did feel that the patient would be appropriate for mild procedure, however, due to his significant degenerative changes he did want to try injective therapy before proceeding. Patient does feel that his back pain is worse than his leg symptoms. He says that he mostly has heaviness and weakness into his lower extremities.. Review of Systems General: No recent weight changes, no fever, no sleep disturbances Respiratory: No cough, no shortness of air, no recurring pulmonary infections Cardiovascular/peripheral vascular: No chest pain, no palpitations, no edema, no shortness of breath Gastrointestinal: No new onset incontinence, normal bowel movements reported Genitourinary: No new onset incontinence Musculoskeletal: Low back pain worse when raising from a leaning position, relief with extension at waist Psychiatric: [Normal mood/affect] Neurological: Weakness in bilateral lower extremities Objective:: Physical exam General: Alert and oriented x3, no acute distress, pleasant and cooperative, [on room air] Lungs: Respirations even and unlabored, symmetrical chest expansion Eyes: PERRL Musculoskeletal: Flexion and extension of lumbar [spine] somewhat guarded secondary to pain, strength in upper and lower extremities [5/5], [antalgic gait noted], use of cane for ambulation Neurological: Speech clear, [registered dental assistant equal], no gross sensory deficit Assessment:: Degenerative disc disease lumbar spine with lumbar radiculopathy symptoms, spinal stenosis Plan:: We will schedule the patient for repeat injection of lumbar epidural steroid injection at L4-L5. This will be the patient's # 2 injection at this area. He is on Xarelto. We will need to hold his anticoagulation therapy before performing the injection. He is aware of this. He is in agreement. We will see him back after his injection for reevaluation of symptoms. Patient seems to be having worse back pain than leg symptoms. We did discuss spinal cord stimulation as a possible option for pain relief in the future as well. He was given educational information today. Dr. Galaviz did feel the patient may be appropriate for mild in the future as well, however, patient's back pain is worse than his leg symptoms at this time. Possible side effects of corticosteroids have been discussed with the patient. Risks and benefits of the procedure have been explained to the patient. Patient would like to proceed with the procedure. Patient has been instructed to contact the clinic with any concerns before the next appointment. Dr. Galaviz has reviewed this note and agrees with this plan of care. This note was dictated using voice recognition software and make contain errors or omissions. [facility] History I have reviewed the patient's past medical history: Yes Medical History: Reports:: Arrhythmia, Atherosclerotic Heart Disease, Atrial Fibrillation, Congestive Heart Failure, Chronic Obstructive Pulmonary Disease (COPD), Coronary Artery Disease, Deep Vein Thrombosis, Diabetes Mellitus Type 2, Gastroesophageal Reflux Disease(GERD), Home Oxygen, Hyperlipidemia, Hypertension, Internal Pacema
== END ==
PROVIDERS: Visit Provider Clinical Nurse Specialist Family Health
DX: M51.16 Intervertebral disc disorders with radiculopathy, lumbar region (principal); M48.00 Spinal stenosis, site unspecified
CPT/HCPCS: 99212; G0463

== ENCOUNTER 2021-04-19 15:37 | Day surgery (SDC) | payer MEDICARE, OTHER, SELFPAY ==
[2021-04-19 15:39] VITALS: BP 124/76; PULSE 80; RESP 18; TEMP 36.5; O2SAT 96; BMI 34.8
[2021-04-19 15:40] VITALS: BP 141/88; PULSE 78; RESP 18; O2SAT 97
[2021-04-19 15:43] VITALS: BP 147/97; PULSE 78; RESP 18; O2SAT 97
--- NOTE | 2021-04-19 15:58 | HMH.PMPROC ---
- Procedure Date: 04/19/21 Time: 15:58 Anesthesiologist:: Jorge Galaviz MD Complications:: None Pre-procedure Diagnosis:: Degenerative disc disease of lumbar spine with lumbar radiculopathy symptoms Post-procedure Diagnosis:: Same Indications for Procedure:: This patient is a pleasant 80-year-old white male who we are treating for low back pain with lumbar radiculopathy symptoms. He has some increasing back pain rating down both legs. He did well with his last lumbar epidural steroid injection. He was 80% better for several weeks. His pain is now starting to return. He has been off of his Xarelto for 5 days. He presents for repeat lumbar epidural steroid injection under fluoroscopy. Procedure Details:: Informed consent was obtained and the risk and benefits of the procedure was explained to the patient. The patient was taken to the procedure room. The patient was placed prone on the procedure table. The patient was prepped and draped in sterile fashion. C-arm fluoroscopy was used to view the lumbar spine. Skin and subcutaneous tissues were anesthetized using lidocaine. I placed an 18-gauge epidural needle and advanced into the L4-L5 interspace using fluoroscopic guidance and [id number] to air. After confirmation of needle placement in the epidural space with dye I injected 2 mL of lidocaine 1.5% with Depo-Medrol 80 mg. Patient tolerated the procedure well with no complications. Plan and Disposition:: We will follow-up with him in 2 weeks. Will reevaluate his symptoms at that time.
[2021-04-19 16:00] VITALS: BP 118/68; PULSE 79; RESP 20; O2SAT 96
== END 2021-04-19 16:00 | disposition home or self-care (01) ==
LOC: SC.PAINP 15:38
PROVIDERS: PCP Family Medicine; Visit Provider Anesthesiology
DX: M51.16 Intervertebral disc disorders with radiculopathy, lumbar region (principal); I25.10 Atherosclerotic heart disease of native coronary artery without angina pectoris; Z95.0 Presence of cardiac pacemaker; E78.5 Hyperlipidemia, unspecified; I48.91 Unspecified atrial fibrillation; I10 Essential (primary) hypertension; J44.9 Chronic obstructive pulmonary disease, unspecified; G47.33 Obstructive sleep apnea (adult) (pediatric); K21.9 Gastro-esophageal reflux disease without esophagitis; E11.9 Type 2 diabetes mellitus without complications; D64.9 Anemia, unspecified; M19.90 Unspecified osteoarthritis, unspecified site
CPT/HCPCS: 62323; Q9966

== ENCOUNTER → 2021-05-07 10:23 | Outpatient (POV) | payer MEDICARE, OTHER, SELFPAY ==
[2021-05-07 10:56] VITALS: BP 97/62; PULSE 92; RESP 18; O2SAT 96; BMI 34.2
--- NOTE | 2021-05-07 11:18 | HMH.PAINSOAP ---
[facility] Pain Management SOAP Note Subjective:: Patient is an 80-year-old white male who presents today for follow-up. Patient recently underwent a lumbar epidural steroid injection at L4-L5 area. He reports he got little to no relief with the injection. He is having pain in his low back area. Patient does have a defibrillator and is on Xarelto. He rates his pain a 7 out of 10. He says he is okay with his pain while sitting, but raising and standing or walking worsen his pain. The pain has progressed up the back somewhat. He says it is in his mid to low back area bilaterally. He does have pain in his bilateral lower extremities, but feels this is related to previous surgeries to his knees. He would like to try oral medications before proceeding with implanted devices. Patient does have multiple allergies but does not feel that tramadol has given him any complications in the past when taking the medication. Patient is on clonazepam prescribed by his primary care provider. Review of Systems General: No recent weight changes, no fever, no sleep disturbances Respiratory: No cough, no shortness of air, no recurring pulmonary infections Cardiovascular/peripheral vascular: No chest pain, no palpitations, no edema, no shortness of breath Gastrointestinal: No new onset incontinence, normal bowel movements reported Genitourinary: No new onset incontinence Musculoskeletal: Low back pain, bilateral leg pain Psychiatric: [Normal mood/affect] Neurological: [Denies weakness in extremities], [denies balance issues] Objective:: Physical exam General: Alert and oriented x3, no acute distress, pleasant and cooperative Lungs: Respirations even and unlabored, symmetrical chest expansion Eyes: PERRL Musculoskeletal: Flexion and extension of lumbar [spine] somewhat guarded secondary to pain, [antalgic gait noted] Neurological: Speech clear, no gross sensory deficit Assessment:: Degenerative disc disease lumbar spine with lumbar radiculopathy symptoms Plan:: We will start the patient on tramadol 50 mg 1 tablet p.o. twice daily. He does have mild allergy to oxycodone with a mild rash. Patient does not feel that tramadol has given him any issues. He would like to try this. He has been advised he is at a high risk for oversedation taking the medication with clonazepam. He has been advised not to take tramadol at the same time as clonazepam. He is in agreement. If he does not get relief with oral medications, intrathecal therapy would likely be an option versus spinal cord stimulation. We would need to discuss the SCS therapy with Dr. Avina, as the patient does have a defibrillator. I did discuss the patient with Dr. Galaviz and he does feel either device would be appropriate for the patient. We will see the patient back in 2 weeks to see if the medication is given him any relief. Patient's Jarek #[id number] has been reviewed and is appropriate. Drug screens are appropriate. Morphine equivalent is 0. [facility] History I have reviewed the patient's past medical history: Yes Medical History: Reports:: Arrhythmia, Atherosclerotic Heart Disease, Atrial Fibrillation, Congestive Heart Failure, Chronic Obstructive Pulmonary Disease (COPD), Coronary Artery Disease, Deep Vein Thrombosis, Diabetes Mellitus Type 2, Gastroesophageal Reflux Disease(GERD), Home Oxygen, Hyperlipidemia, Hypertension, Internal Pacemaker, Peripheral Artery Disease, Renal Disease Denies:: Cancer, Cerebrovascular Accident, Diabetes Mellitus Type 1, MRSA, Myocardial Infarction, Seizures *Have you ever received a pneumonia vaccine?: Yes *Have you received a flu vaccine this season?: Yes Other Medical History: Reports: Anemia, Arthritis, Cataracts. Denies: Blood Transfusion Reaction Laterality Cases: Bilateral: Arthroscopy Knee Other Surgeries: Yes: No Previous Surgery, CABG, Cardiac Catheterization, Cardiac Surgery, Cholecystectomy, Colonoscopy, Coronary Stent, EGD, Hernia Repair, Ope
== END ==
PROVIDERS: Visit Provider Clinical Nurse Specialist Family Health
DX: M51.16 Intervertebral disc disorders with radiculopathy, lumbar region (principal)
CPT/HCPCS: 99212; G0463

== ENCOUNTER → 2021-09-14 09:29 | Outpatient (REF) | payer MEDICARE, OTHER, SELFPAY ==
[2021-09-14 12:12] LABS: Microscopic, Urine URINE MICROSCOPIC (MICROSCOPIC)
[2021-09-14 12:38] LABS: Appearance,Urine CLEAR (Clear); Bilirubin,Urine Negative (Negative); Blood, Urine 2+ (Negative); Color,Urine YELLOW (Yellow); Glucose,Urine (UA) Negative (Negative); Ketones,Urine Negative (Negative); Leukocyte Esterase,Urine 1+ (Negative); Nitrate,Urine POSITIVE (Negative); Protein,Urine TRACE (Negative); Urobilinogen,Urine 0.2 EU/dl (0.2)
[2021-09-14 13:18] LABS: Bacteria,Urine Trace /lpf
== END ==
LOC: LAB 09:29
PROVIDERS: Visit Provider Family Medicine
DX: N39.0 Urinary tract infection, site not specified (principal)
CPT/HCPCS: 81001; 87086

== ENCOUNTER 2021-11-18 13:03 | Emergency (ER) | payer MEDICARE, OTHER, SELFPAY ==
[2021-11-18] VITALS (13 sets, daily range): BP systolic 124–153; BP diastolic 66–77; PULSE 70–84; RESP 16–26; TEMP 36.6; O2SAT 92–96; BMI 27.8
--- NOTE | 2021-11-18 | ECG_ITS ---
APPROVED REPORT Exam: Resting ECG HR:80 bpm ECG Measurements Heart Rate 80 AXES QRSd 170 QRS 270 QT 421 T 89 QTc 456 Conclusion ELECTRONIC VENTRICULAR PACEMAKER ABNORMAL RHYTHM ECG UNCONFIRMED REPORT Electronically signed by : Gilberto Marquez MD 11/18/2021 15:48:32
--- NOTE | 2021-11-18 13:00 | PC.NURSE ---
Jaycee Bell, RN at
--- NOTE | 2021-11-18 13:06 | PC.NURSE ---
ED MD at
--- NOTE | 2021-11-18 13:07 | XR_ITS ---
FINAL REPORT CLINICAL HISTORY: soa FINDINGS: A single view of the chest was obtained. The heart is mildly enlarged. The patient is status post median sternotomy. A left subclavian pacemaker is present. There is pulmonary vascular congestion. A small to moderate right pleural effusion is seen. There is no pneumothorax. There is no acute osseous abnormality. IMPRESSION: Pulmonary vascular congestion with a small to moderate right pleural effusion. Reviewed, Interpreted and Dictated by Neto Cintron III, MD Transcribed by Antoinette Cabello Authenticated by Neto Cintron III, MD on 11/18/2021 01:59:[address] [facility]
[2021-11-18 13:14] LABS: Basophils % 0.7 % (0.1-2.0); Eosinophils # 0.1 K/mm3 (0.0-0.4); Eosinophils % 1.6 % (0.1-12.0); Hematocrit 38.5 % (42.0-52.0); Hemoglobin 12.4 g/dL (14.1-18.0); Lymphocytes # 1.4 K/mm3 (0.7-4.5); Lymphocytes % 23.1 % (10-50); Mean Corpuscular HGB Conc 32.1 g/dL (31.8-35.4); Mean Corpuscular Hemoglobin 32.1 pg (27.0-31.2); Mean Corpuscular Volume 99.8 fl (80-94); Mean Platelet Volume 9.6 fl (7.4-10.4); Monocytes # 0.4 K/mm3 (0.1-1.0); Monocytes % 6.6 % (1.7-9.3); Neutrophils # 4.2 K/mm3 (1.8-7.8); Platelet Count 249 K/mm3 (142-424); Red Blood Count 3.85 M/mm3 (4.60-6.20); Red Cell Distribution Width 14.8 % (11.5-17.5); White Blood Count 6.1 K/mm3 (4.8-10.8)
[2021-11-18 13:19] LABS: Alanine Aminotransferase 16 U/L (12-78); Albumin Level 3.4 g/dl (3.5-5.0); Albumin/Globulin Ratio 1.1 (1.1-1.8); Alkaline Phosphatase 69 U/L (38-126); Aspartate Amino Transferase 24 U/L (17-59); Blood Urea Nitrogen 19 mg/dl (9-20); Chloride 98 mmol/L (98-107); Creatinine Clearance Estimated 60 mL/min (50-200); Estimated Glomerular Filt Rate 58 ml/min (>60); GFR (African American) 70 ML/MIN (>60); Glucose 203 mg/dl (74-100); Potassium 3.8 mmoL/L (3.5-5.1); Sodium 142 mmol/L (136-145); Total Protein,Serum 6.4 g/dl (6.3-8.2)
--- NOTE | 2021-11-18 13:20 | CT_ITS ---
FINAL REPORT CLINICAL HISTORY: abdominal pain FINDINGS: Axial CT images of the abdomen and pelvis were obtained without intravenous contrast. Coronal reformatted images were also obtained.This study was performed with techniques to keep radiation doses as low as reasonably achievable (ALARA). Individualized dose reduction techniques using automated exposure control or adjustment of mA and/or kV according to the patient's size were employed. Abdomen: There is no evidence of renal stone or hydronephrosis.The liver, spleen and pancreas have an unremarkable, unenhanced appearance. No mass or adenopathy is seen. The patient is status post cholecystectomy. There are moderate vascular calcifications. There is mild anasarca. Pelvis: Images of the pelvis reveal no evidence of ureteral dilation or ureteral stone. There is a moderate to large amount of stool, greatest in the rectum, worrisome for fecal impaction. The appendix is normal. There is a small left inguinal hernia containing fat. IMPRESSION: Moderate to large amount of stool, greatest in the rectum, worrisome for impaction. Mild anasarca. Small left inguinal hernia containing fat. Reviewed, Interpreted and Dictated by Neto Cintron III, MD Transcribed by Antoinette Cabello Authenticated by Neto Cintron III, MD on 11/18/2021 03:29:13 PM [facility]
--- NOTE | 2021-11-18 13:20 | CT_ITS ---
FINAL REPORT TECHNIQUE: Axial CT images were performed from the lung apices through the upper abdomen. Coronal reformats were submitted. This study was performed with techniques to keep radiation doses as low as reasonably achievable (ALARA). Individualized dose reduction techniques using automated exposure control or adjustment of mA and/or kV according to the patient's size were employed. CLINICAL HISTORY: sob FINDINGS: The patient is status post median sternotomy. There is no axillary adenopathy. There is no hilar or mediastinal mass or adenopathy. The heart size is enlarged. A large right pleural effusion fills much of the right hemithorax. There is a small left pleural effusion. There is significant right lung atelectasis with right lower lobe collapse. IMPRESSION: Large right pleural effusion filling much of the right hemithorax. Significant right lung atelectasis with right lower lobe collapse. Reviewed, Interpreted and Dictated by Neto Cintron III, MD Transcribed by Antoinette Cabello Authenticated by Neto Cintron III, MD on 11/18/2021 03:18:12 PM [facility]
--- NOTE | 2021-11-18 13:25 | HMH.EDGENADL ---
ED Disposition Clinical Impression: Fecal impaction, Pleural effusion Disposition: Home, Self-Care Condition on Discharge: Good Additional Instructions: Please return to the emergency department with any new or worsening symptoms including fever, shortness of breath, chest pain, abdominal pain or any other new or concerning symptoms. Referrals: Provider,Referral, [Primary Care Provider] - - Critical Care Critical Care Time: No Attestation: On 11/18/21, the high probability of a clinically significant, sudden or life threatening deterioration of the following system(s) required my full and direct attention, intervention and personal management. The time I documented below is in addition to time spent performing reported procedures but includes the following listed in this critical care notation. Medical Decision Making - Jarek Inquiry Pt receiving controlled substance: No Vital Signs: 11/18/21 12:57 11/18/21 13:23 11/18/21 13:45 Temperature 97.9 F Temperature Source Oral Pulse Rate 80 84 Pulse Rate [Left Radial] 80 Respiratory Rate 24 22 22 Blood Pressure 127/73 133/76 Blood Pressure [Right Arm] 132/72 Blood Pressure Mean [Right Arm] 92 Blood Pressure Source Automatic Cuff Automatic Cuff Blood Pressure Source [Right Arm] Automatic Cuff Blood Pressure Position Sitting Sitting Blood Pressure Position [Right Arm] Sitting 02 Sat by Pulse Oximetry 96 94 L 93 L Oxygen Delivery Method Room Air Room Air Room Air 11/18/21 14:28 11/18/21 15:31 11/18/21 15:35 Temperature Temperature Source Pulse Rate 80 70 72 Pulse Rate [Left Radial] Respiratory Rate 22 17 24 Blood Pressure 126/68 124/66 124/66 Blood Pressure [Right Arm] Blood Pressure Mean [Right Arm] Blood Pressure Source Automatic Cuff Automatic Cuff Automatic Cuff Blood Pressure Source [Right Arm] Blood Pressure Position Sitting Sitting Sitting Blood Pressure Position [Right Arm] 02 Sat by Pulse Oximetry 92 L 92 L 92 L Oxygen Delivery Method Room Air Room Air Room Air 11/18/21 16:01 11/18/21 16:31 11/18/21 17:01 Temperature Temperature Source Pulse Rate 81 80 80 Pulse Rate [Left Radial] Respiratory Rate 24 21 16 Blood Pressure 143/76 H 131/73 128/71 Blood Pressure [Right Arm] Blood Pressure Mean [Right Arm] Blood Pressure Source Automatic Cuff Automatic Cuff Automatic Cuff Blood Pressure Source [Right Arm] Blood Pressure Position Sitting Sitting Sitting Blood Pressure Position [Right Arm] 02 Sat by Pulse Oximetry 94 L 94 L 95 Oxygen Delivery Method Room Air Room Air Room Air 11/18/21 17:31 11/18/21 18:01 11/18/21 18:31 Temperature Temperature Source Pulse Rate 80 70 80 Pulse Rate [Left Radial] Respiratory Rate 26 H 20 Blood Pressure 137/71 144/67 H 153/77 H Blood Pressure [Right Arm] Blood Pressure Mean [Right Arm] Blood Pressure Source Automatic Cuff Automatic Cuff Automatic Cuff Blood Pressure Source [Right Arm] Blood Pressure Position Sitting Sitting Sitting Blood Pressure Position [Right Arm] 02 Sat by Pulse Oximetry 95 95 95 Oxygen Delivery Method Room Air Room Air 11/18/21 19:03 Temperature 97.9 F Temperature Source Oral Pulse Rate 80 Pulse Rate [Left Radial] Respiratory Rate 20 Blood Pressure 153/77 H Blood Pressure [Right Arm] Blood Pressure Mean [Right Arm] Blood Pressure Source Automatic Cuff Blood Pressure Source [Right Arm] Blood Pressure Position Sitting Blood Pressure Position [Right Arm] 02 Sat by Pulse Oximetry Oxygen Delivery Method Room Air - Lab Data Lab Results 11/18/21 12:00: WBC 6.1, RBC 3.85 L, Hgb 12.4 L, Hct 38.5 L, MCV 99.8 H, MCH 32.1 H, MCHC 32.1, RDW 14.8, Plt Count 249, MPV 9.6, Neut % (Auto) 68.0, Lymph % (Auto) 23.1, [place] % (Auto) 6.6, Eos % (Auto) 1.6, Baso % (Auto) 0.7, Neut # (Auto) 4.2, Lymph # (Auto) 1.4, [place] # (Auto) 0.4, Eos # (Auto) 0.1, Baso # (Auto) 0.0 11/18/21 12:00: Sodium 142, Potassium
[2021-11-18 13:26] LABS: Anion Gap 8.8 mEq/L (5-15); Carbon Dioxide 39 mmol/L (22.0-30.0)
[2021-11-18 13:27] LABS: Bilirubin,Total 0.1 mg/dl (0.2-1.3)
[2021-11-18 13:31] LABS: Troponin I 0.04 ng/ml (0.00-0.034)
[2021-11-18 13:50] LABS: Lipase 91 U/L (23-300)
--- NOTE | 2021-11-18 14:22 | PC.NURSE ---
patient back from CT with wheel alignment technician by bhavik
--- NOTE | 2021-11-18 14:26 | PC.NURSE ---
Covid swab sent to lab; no needs at this time
[2021-11-18 14:29] LABS: Coronavirus 19, PCR Not Detected (NotDetected); Influenza A, PCR Not Detected (NotDetected); Influenza B, PCR Not Detected (NotDetected)
--- NOTE | 2021-11-18 14:46 | PC.NURSE ---
Lactic acid drawn and sent to lab
[2021-11-18 15:02] LABS: Lactic Acid 1.4 mmol/L (0.7-2.1)
[2021-11-18 15:31] LABS: NT Pro Brain Natriuretic Pep. 5840 pg/mL (0-450)
--- NOTE | 2021-11-18 15:31 | ECG_ITS ---
APPROVED REPORT Exam: Resting ECG HR:71 bpm ECG Measurements Heart Rate 71 AXES QRSd 179 QRS -82 QT 438 T 88 QTc 461 Conclusion ELECTRONIC VENTRICULAR PACEMAKER ABNORMAL RHYTHM ECG UNCONFIRMED REPORT Electronically signed by : Gilberto Marquez MD 11/19/2021 21:29:29
--- NOTE | 2021-11-18 16:05 | PC.NURSE ---
DR. HERNANDEZ AT BEDSIDE SPAEKING WITH PT AND FAMILY
[2021-11-18 16:57] LABS: Troponin I 0.04 ng/ml (0.00-0.034)
--- NOTE | 2021-11-18 18:10 | PC.NURSE ---
speaking to family at
--- NOTE | 2021-11-18 18:11 | PC.NURSE ---
Patients keeps standing at door of ED room 4, staring at all employees. She has been told that the ED DR is seeing other patients. She comes up to me and asks me to right down the ED Drs name, who the wireless sales associate is and my name. I gave her all information and told her I would gladly call [facility] and she states she would call them herself. She states No Dr. spends an hour with patients. I stated, It depends on the situation She states, Well I have a situation in here. I said I understand that, but he is stable and some patients in here are not and the whole ER is full at the moment. She said, Mhgeorgi and proceeded back into ED room 4. Patient has no needs or wants at this time
--- NOTE | 2021-11-18 18:19 | PC.NURSE ---
HOUSE has been notified by me of situation
--- NOTE | 2021-11-18 18:38 | PC.NURSE ---
DR. RAMOS PAGED AT THIS TIME
--- NOTE | 2021-11-18 18:50 | PC.NURSE ---
CHRISTOPHE PURCELL on phone with Dr. Dhillon
--- NOTE | 2021-11-18 18:53 | PC.NURSE ---
Laura Paz, SRNA at [facility]
== END 2021-11-18 19:08 | disposition home or self-care (01) ==
PROVIDERS: Emergency Provider Student in an Organized Health Care Education/Training Program
DX: K56.41 Fecal impaction (principal); R06.02 Shortness of breath; J90 Pleural effusion, not elsewhere classified; D64.9 Anemia, unspecified; R20.2 Paresthesia of skin; R11.0 Nausea; Z20.822 Contact with and (suspected) exposure to COVID-19; I11.0 Hypertensive heart disease with heart failure; I50.22 Chronic systolic (congestive) heart failure; N28.9 Disorder of kidney and ureter, unspecified; I25.119 Atherosclerotic heart disease of native coronary artery with unspecified angina pectoris; I48.20 Chronic atrial fibrillation, unspecified; I73.9 Peripheral vascular disease, unspecified; I69.354 Hemiplegia and hemiparesis following cerebral infarction affecting left non-dominant side; K21.9 Gastro-esophageal reflux disease without esophagitis; E78.5 Hyperlipidemia, unspecified; E11.9 Type 2 diabetes mellitus without complications; M19.90 Unspecified osteoarthritis, unspecified site; H26.9 Unspecified cataract; J44.9 Chronic obstructive pulmonary disease, unspecified; Z79.01 Long term (current) use of anticoagulants; Z79.1 Long term (current) use of non-steroidal anti-inflammatories (NSAID); Z79.4 Long term (current) use of insulin; Z79.84 Long term (current) use of oral hypoglycemic drugs; Z99.81 Dependence on supplemental oxygen; Z79.899 Other long term (current) drug therapy; Z88.2 Allergy status to sulfonamides; Z88.8 Allergy status to other drugs, medicaments and biological substances; Z91.040 Latex allergy status; Z95.0 Presence of cardiac pacemaker; Z95.1 Presence of aortocoronary bypass graft; Z86.718 Personal history of other venous thrombosis and embolism
CPT/HCPCS: 71045; 71250; 74176; 80053; 83605; 83690; 83880; 84484; 85025; 93005; 99285; C9803; U0003; U0005

== ENCOUNTER 2021-12-09 16:18 | Inpatient (IN) | payer MEDICARE, OTHER, SELFPAY ==
[2021-12-09] VITALS (15 sets, daily range): BP systolic 113–138; BP diastolic 65–77; PULSE 71–85; RESP 16–18; TEMP 36.9–37.1; O2SAT 95–100; BMI 29.5; BMI 31.6
--- NOTE | 2021-12-09 16:21 | CT_ITS ---
PROCEDURE INFORMATION: Exam: CT Angiography Neck With Contrast Exam date and time: 12/09/21 04:52 PM Age: 81 years old Clinical indication: Stroke-like symptoms; Additional info: Right leg weakness TECHNIQUE: Imaging protocol: Computed tomography angiography of the neck with contrast. 3D rendering (Not supervised by radiologist): MIP and/or 3D reconstructed images were created by the technologist. Radiation optimization: All CT scans at this facility use at least one of these dose optimization techniques: automated exposure control; mA and/or kV adjustment per patient size (includes targeted exams where dose is matched to clinical indication); or iterative reconstruction. Contrast material: ISOVUE 370; Contrast volume: 100 ml; Contrast route: INTRAVENOUS (IV); COMPARISON: US CA CAROTID DUPLEX BI 11/23/20 10:57 AM FINDINGS: Tubes, catheters and devices: Pacemaker in good position. Right common carotid artery: No stenosis. No dissection or occlusion. Right internal carotid artery: Mild right ICA stenosis at the bulb, less than 50% stenosis by NASCET criteria. Right external carotid artery: No occlusion or stenosis of the origin. Left common carotid artery: No stenosis. No dissection or occlusion. Left internal carotid artery: Moderate left ICA stenosis, 65% by NASCET criteria. Left external carotid artery: No occlusion or stenosis of the origin. Right vertebral artery: No stenosis. No dissection or occlusion. Left vertebral artery: No stenosis. No dissection or occlusion. Soft tissues: Normal. No significant soft tissue swelling. Bones/joints: No acute fracture. Lungs: Large right pleural effusion with compressive atelectasis right lung. Coronary arteries: CABG. IMPRESSION: 1. Moderate left ICA stenosis, 65% by NASCET criteria. 2. Mild right ICA stenosis, less than 50% by NASCET criteria. REFERENCES: NASCET CRITERIA. The degree of internal carotid artery stenosis is based on NASCET criteria. Normal is no stenosis. Mild is less than 50% stenosis. Moderate is 50-69% stenosis. Severe is 70% to 99% stenosis. Total occlusion is no detectable patent lumen.
--- NOTE | 2021-12-09 16:21 | XR_ITS ---
FINAL REPORT CLINICAL HISTORY: weakness COMPARISON: November 18, 2021 FINDINGS: A single portable view of the chest was obtained. Cardiomegaly is noted. Postoperative changes are seen from median sternotomy. There is a left subclavian pacer. Mild pulmonary vascular congestion is seen which is stable. There is a large right pleural effusion which is larger. There is mild atelectasis at the right lung base. IMPRESSION: Cardiomegaly and mild pulmonary vascular congestion. Large right pleural effusion, increased since the prior examination. Authenticated and ERN
--- NOTE | 2021-12-09 16:21 | CT_ITS ---
FINAL REPORT CLINICAL HISTORY: right leg weakness, h/o stroke COMPARISON: CT head dated May 07, 2018 FINDINGS: Axial images of the head were obtained without contrast. Coronal reformatted images were also obtained. This study was performed with techniques to keep radiation doses as low as reasonably achievable (ALARA). Individualized dose reduction techniques using automated exposure control or adjustment of mA and/or kV according to the patient's size were employed. There is generalized age-appropriate atrophy. Periventricular low-attenuation areas are seen consistent with mild chronic ischemic changes. There are chronic left frontal periventricular infarcts which are new from the prior exam. There is encephalomalacia of the right nora consistent with prior infarct, new from prior. There is no evidence of intracranial hemorrhage. There is no evidence of acute infarct. There is no evidence of shift of the midline structures. No skull abnormality is seen on the bone window images. There is opacification of multiple sinuses. IMPRESSION: Chronic findings as above. No acute intracranial abnormality identified. Reviewed, Interpreted and Dictated by eNto Cintron III, MD Transcribed by Ida Smiley Authenticated and [facility][1]
--- NOTE | 2021-12-09 16:21 | CT_ITS ---
PROCEDURE INFORMATION: Exam: CT Angiography Head With Contrast, Arteriography Exam date and time: 12/09/21 04:52 PM Age: 81 years old Clinical indication: Stroke-like symptoms; Additional info: Right leg weakness TECHNIQUE: Imaging protocol: Computed tomography angiography of the head with contrast. Exam focused on the arteries. 3D rendering (Not supervised by radiologist): MIP and/or 3D reconstructed images were created by the technologist. Radiation optimization: All CT scans at this facility use at least one of these dose optimization techniques: automated exposure control; mA and/or kV adjustment per patient size (includes targeted exams where dose is matched to clinical indication); or iterative reconstruction. Contrast material: ISOVUE 370; Contrast volume: 100 ml; Contrast route: INTRAVENOUS (IV); COMPARISON: CT HEAD/BRAIN WO CON 12/09/21 04:34 PM FINDINGS: ANTERIOR CIRCULATION: Right internal carotid artery: Unremarkable. Intracranial segment is patent with no significant stenosis. No aneurysm. Right middle cerebral artery: Unremarkable. No occlusion or significant stenosis. No aneurysm. Right anterior cerebral artery: Unremarkable. No occlusion or significant stenosis. No aneurysm. Left internal carotid artery: Unremarkable. Intracranial segment is patent with no significant stenosis. No aneurysm. Left middle cerebral artery: Unremarkable. No occlusion or significant stenosis. No aneurysm. Left anterior cerebral artery: Unremarkable. No occlusion or significant stenosis. No aneurysm. POSTERIOR CIRCULATION: Right vertebral artery: Unremarkable. No occlusion or significant stenosis. No aneurysm. Left vertebral artery: Unremarkable. No occlusion or significant stenosis. No aneurysm. Basilar artery: Unremarkable. No occlusion or significant stenosis. No aneurysm. Right posterior cerebral artery: Unremarkable. No occlusion or significant stenosis. No aneurysm. Left posterior cerebral artery: Unremarkable. No occlusion or significant stenosis. No aneurysm. Brain: No definite mass, mass effect, or midline shift. Cerebral ventricles: No ventriculomegaly. Bones/joints: Unremarkable. No acute fracture. Soft tissues: Unremarkable. IMPRESSION: 1. No large vessel stenosis or occlusion. 2. Study limited by contrast bolus timing.
--- NOTE | 2021-12-09 16:23 | HMH.EDGENADL ---
ED Disposition Clinical Impression: Right leg weakness Urinary tract infection Qualifiers: Urinary tract infection type: acute cystitis Hematuria presence: without hematuria Qualified Code(s): N30.00 - Acute cystitis without hematuria Disposition: Admitted as Observation Condition on Discharge: Fair - Critical Care Critical Care Time: No Attestation: On , the high probability of a clinically significant, sudden or life threatening deterioration of the following system(s) required my full and direct attention, intervention and personal management. The time I documented below is in addition to time spent performing reported procedures but includes the following listed in this critical care notation. Medical Decision Making - Medical Records Medical records reviewed: Yes: I reviewed the patient's medical records. - Jarek Inquiry Pt receiving controlled substance: No Vital Signs: 12/09/21 16:19 12/09/21 17:22 12/09/21 17:29 Temperature 98.4 F Temperature Source Oral Pulse Rate 80 80 Pulse Rate [Left Radial] 79 Respiratory Rate 18 Blood Pressure 118/69 128/68 Blood Pressure [Right Arm] 138/67 Blood Pressure Mean 91 100 Blood Pressure Mean [Right Arm] 90 Blood Pressure Source Blood Pressure Source [Right Arm] Automatic Cuff Blood Pressure Position Blood Pressure Position [Right Arm] Sitting 02 Sat by Pulse Oximetry 96 Oxygen Delivery Method Room Air Oxygen Flow Rate (LPM) 12/09/21 17:39 12/09/21 17:40 12/09/21 17:49 Temperature Temperature Source Pulse Rate 80 79 Pulse Rate [Left Radial] Respiratory Rate 18 Blood Pressure 129/71 125/69 Blood Pressure [Right Arm] Blood Pressure Mean 92 91 Blood Pressure Mean [Right Arm] Blood Pressure Source Blood Pressure Source [Right Arm] Blood Pressure Position Blood Pressure Position [Right Arm] 02 Sat by Pulse Oximetry 95 96 99 Oxygen Delivery Method Nasal Cannula Nasal Cannula Oxygen Flow Rate (LPM) 2 2 12/09/21 17:59 12/09/21 18:09 12/09/21 18:19 Temperature Temperature Source Pulse Rate 80 80 85 Pulse Rate [Left Radial] Respiratory Rate Blood Pressure 127/73 136/77 119/68 Blood Pressure [Right Arm] Blood Pressure Mean 93 95 90 Blood Pressure Mean [Right Arm] Blood Pressure Source Blood Pressure Source [Right Arm] Blood Pressure Position Blood Pressure Position [Right Arm] 02 Sat by Pulse Oximetry 99 98 99 Oxygen Delivery Method Oxygen Flow Rate (LPM) 12/09/21 18:29 12/09/21 18:40 12/09/21 18:50 Temperature Temperature Source Pulse Rate 80 80 80 Pulse Rate [Left Radial] Respiratory Rate Blood Pressure 131/73 113/74 123/72 Blood Pressure [Right Arm] Blood Pressure Mean 93 95 89 Blood Pressure Mean [Right Arm] Blood Pressure Source Blood Pressure Source [Right Arm] Blood Pressure Position Blood Pressure Position [Right Arm] 02 Sat by Pulse Oximetry 99 100 100 Oxygen Delivery Method Oxygen Flow Rate (LPM) 12/09/21 18:55 Temperature 98.4 F Temperature Source Oral Pulse Rate 80 Pulse Rate [Left Radial] Respiratory Rate 16 Blood Pressure 123/72 Blood Pressure [Right Arm] Blood Pressure Mean Blood Pressure Mean [Right Arm] Blood Pressure Source Automatic Cuff Blood Pressure Source [Right Arm] Blood Pressure Position Sitting Blood Pressure Position [Right Arm] 02 Sat by Pulse Oximetry Oxygen Delivery Method Nasal Cannula Oxygen Flow Rate (LPM) 2 - Lab Data Lab Results 12/09/21 16:10: WBC 10.8, RBC 3.91 L, Hgb 12.2 L, Hct 38.0 L, MCV 97.2 H, MCH 31.1, MCHC 32.0, RDW 14.7, Plt Count 298, MPV 9.3, Neut % (Auto) 76.4, Lymph % (Auto) 16.4, [place] % (Auto) 5.8, Eos % (Auto) 0.9, Baso % (Auto) 0.5, Neut # (Auto) 8.2 H, Lymph # (Auto) 1.8, [place] # (Auto) 0.6, Eos # (Auto) 0.1, Baso # (Auto) 0.1 12/09/21 16:10: PT 12.5, INR 1.12 H, APTT 37.1 H 12/09/21 16:10: Sodium 139, Potassium 3.1 L, Chlorid
[2021-12-09 16:33] LABS: Basophils # 0.1 K/mm3 (0-0.2); Basophils % 0.5 % (0.1-2.0); Eosinophils # 0.1 K/mm3 (0.0-0.4); Eosinophils % 0.9 % (0.1-12.0); Hemoglobin 12.2 g/dL (14.1-18.0); Lymphocytes # 1.8 K/mm3 (0.7-4.5); Lymphocytes % 16.4 % (10-50); Mean Corpuscular Hemoglobin 31.1 pg (27.0-31.2); Mean Corpuscular Volume 97.2 fl (80-94); Mean Platelet Volume 9.3 fl (7.4-10.4); Monocytes # 0.6 K/mm3 (0.1-1.0); Monocytes % 5.8 % (1.7-9.3); Neutrophils # 8.2 K/mm3 (1.8-7.8); Neutrophils % 76.4 % (37.0-80.0); Platelet Count 298 K/mm3 (142-424); Red Blood Count 3.91 M/mm3 (4.60-6.20); Red Cell Distribution Width 14.7 % (11.5-17.5); White Blood Count 10.8 K/mm3 (4.8-10.8)
[2021-12-09 16:35] LABS: Microscopic, Urine URINE MICROSCOPIC (MICROSCOPIC)
[2021-12-09 16:41] LABS: Chloride 94 mmol/L (98-107); Sodium 139 mmol/L (136-145)
[2021-12-09 16:42] LABS: Potassium 3.1 mmoL/L (3.5-5.1)
[2021-12-09 16:43] LABS: Appearance,Urine SL CLOUDY (Clear); Bilirubin,Urine Negative (Negative); Blood, Urine 1+ (Negative); Color,Urine YELLOW (Yellow); Glucose,Urine (UA) Negative (Negative); Ketones,Urine Negative (Negative); Leukocyte Esterase,Urine 2+ (Negative); Nitrate,Urine POSITIVE (Negative); Protein,Urine Negative (Negative); Urobilinogen,Urine 0.2 EU/dl (0.2)
[2021-12-09 16:44] LABS: Alanine Aminotransferase 16 U/L (12-78); Albumin Level 3.6 g/dl (3.5-5.0); Albumin/Globulin Ratio 1.1 (1.1-1.8); Alkaline Phosphatase 78 U/L (38-126); Aspartate Amino Transferase 26 U/L (17-59); Bilirubin,Total 0.6 mg/dl (0.2-1.3); Blood Urea Nitrogen 16 mg/dl (9-20); Calcium 8.8 mg/dl (8.4-10.2); Creatinine Clearance Estimated 60 mL/min (50-200); Estimated Glomerular Filt Rate 58 ml/min (>60); GFR (African American) 70 ML/MIN (>60); Globulin 3.4 g/dL (1.3-3.2); Glucose 142 mg/dl (74-100)
[2021-12-09 16:49] LABS: Activated Partial Thrombo Time 37.1 seconds (22.8-30.6); INR 1.12 (0.9-1.1); Prothrombin Time 12.5 seconds (10.1-12.5)
[2021-12-09 16:52] LABS: Anion Gap 11.1 mEq/L (5-15); Carbon Dioxide 37 mmol/L (22.0-30.0)
[2021-12-09 16:57] LABS: Troponin I 0.05 ng/ml (0.00-0.034)
--- NOTE | 2021-12-09 17:38 | PC.NURSE ---
SaO2 85% on RA, pt reports wears O2 prn at home mainly when sleeping. Pt placed on O2 at 2L per NC at this time. Notified ER
[2021-12-09 17:52] LABS: Bacteria,Urine 4+ /lpf; RBC,Urine Occasional #/hpf (0-3)
--- NOTE | 2021-12-09 18:56 | PC.NURSE ---
Report given to manufacturing shift supervisor on coming, will give report to the floor once they are available to take report
[2021-12-09 20:13] LABS: Troponin I 0.05 ng/ml (0.00-0.034)
--- NOTE | 2021-12-09 20:53 | PC.NURSE ---
pt arrived to floor via stretcher at this time
--- NOTE | 2021-12-09 21:10 | P.CONPHA_ITS ---
[facility] Pharmacy VTE Monitoring - Patient Demographics Admission date: 12/09/21 Report Date: 12/09/21 Time: 21:10 Allergies/Adverse Reactions: Patient Allergies apixaban [From ELIQUIS] Allergy (Mild, Verified 10/21/21 09:37) I-RASH doxycycline [DOXYCYCLINE] Allergy (Mild, Verified 10/21/21 09:37) MCINTYRE SKIN, BLISTERS insulin aspart [INSULIN ASPART] Allergy (Mild, Verified 10/21/21 09:37) I-RASH Insulins Allergy (Mild, Verified 10/21/21 09:37) latex [LATEX] Allergy (Mild, Verified 10/21/21 09:37) I-RASH lovastatin [LOVASTATIN] Allergy (Mild, Verified 10/21/21 09:37) I-RASH oxycodone [From PERCOCET] Allergy (Mild, Verified 10/21/21 09:37) I-RASH pantoprazole [From PROTONIX] Allergy (Mild, Verified 10/21/21 09:37) I-RASH pioglitazone [From ACTOPLUS MET] Allergy (Mild, Verified 10/21/21 09:37) I-RASH sulfamethoxazole [From SEPTRA] Allergy (Mild, Verified 10/21/21 09:37) I-RASH trimethoprim [From SEPTRA] Allergy (Mild, Verified 10/21/21 09:37) I-RASH ferrous gluconate Adverse Reaction (Verified 10/21/21 09:37) Rash Height: 1.75 m Weight: 90.718 kg Patient Problems: Current Active Problems (Last Updated 05/21/20 @ 13:31 by Sulma Cunningham APRN) Urinary tract infection (Acute) Right leg weakness (Acute) - VTE Risk Labs: VTE Related Lab Results Hgb 12.2 g/dL (14.1-18.0) L 12/09/21 16:10 Hct 38.0 % (42.0-52.0) L 12/09/21 16:10 Plt Count 298 K/mm3 (142-424) 12/09/21 16:10 PT 12.5 seconds (10.1-12.5) 12/09/21 16:10 INR 1.12 (0.9-1.1) H 12/09/21 16:10 APTT 37.1 seconds (22.8-30.6) H 12/09/21 16:10 BUN 16 mg/dl (9-20) 12/09/21 16:10 Creatinine 1.20 mg/dl (0.66-1.25) 12/09/21 16:10 Estimated Creat Clear 60 mL/min (50-200) 12/09/21 16:10 - Prophylaxis VTE Prophylaxis Ordered?: Yes Types of VTE Prophylaxis: TEDS Knee High, Pharmacological Location of Applied Device: Bilateral Lower Extremeties Pharmacologic Type: Other (XARELTO)
[2021-12-10] VITALS (13 sets, daily range): BP systolic 114–146; BP diastolic 51–75; PULSE 75–94; RESP 16–22; TEMP 36.3–37.1; O2SAT 85–100; BMI 31.6
[2021-12-10 06:33] LABS: Basophils % 0.5 % (0.1-2.0); Eosinophils # 0.1 K/mm3 (0.0-0.4); Eosinophils % 0.7 % (0.1-12.0); Hemoglobin 11.7 g/dL (14.1-18.0); Lymphocytes # 1.2 K/mm3 (0.7-4.5); Lymphocytes % 15.6 % (10-50); Mean Corpuscular HGB Conc 32.4 g/dL (31.8-35.4); Mean Corpuscular Hemoglobin 31.9 pg (27.0-31.2); Mean Corpuscular Volume 98.6 fl (80-94); Mean Platelet Volume 9.3 fl (7.4-10.4); Monocytes # 0.6 K/mm3 (0.1-1.0); Monocytes % 7.6 % (1.7-9.3); Neutrophils # 5.8 K/mm3 (1.8-7.8); Neutrophils % 75.6 % (37.0-80.0); Platelet Count 259 K/mm3 (142-424); Red Blood Count 3.65 M/mm3 (4.60-6.20); Red Cell Distribution Width 14.7 % (11.5-17.5); White Blood Count 7.7 K/mm3 (4.8-10.8)
[2021-12-10 06:47] LABS: Chloride 96 mmol/L (98-107); Potassium 3.7 mmoL/L (3.5-5.1); Sodium 138 mmol/L (136-145)
[2021-12-10 06:50] LABS: Anion Gap 9.7 mEq/L (5-15); Blood Urea Nitrogen 19 mg/dl (9-20); Calcium 8.6 mg/dl (8.4-10.2); Carbon Dioxide 36 mmol/L (22.0-30.0); Creatinine Clearance Estimated 70 mL/min (50-200); Estimated Glomerular Filt Rate 64 ml/min (>60); GFR (African American) 77 ML/MIN (>60); Glucose 160 mg/dl (74-100)
--- NOTE | 2021-12-10 07:30 | HMH.PHAINT ---
MEDICATION RECONCILIATION COMPLETED ON PATIENT USING EXTERNAL FILL HISTORY FROM PHARMACY. -NORMA FLANAGAN, CORTNEYD
[2021-12-10 07:54] LABS: Coronavirus 19, PCR Not Detected (NotDetected); Influenza A, PCR Not Detected (NotDetected); Influenza B, PCR Not Detected (NotDetected)
--- NOTE | 2021-12-10 08:09 | HMH.HP ---
*Admission Date: 12/09/21 <Tricia Porter - 12/10/21 08:43> *Chief complaint: Altered mental status <Tricia Porter - 12/10/21 08:43> *History of present illness: Mr. Montez is an 81-year-old male with an extensive medical history to include coronary artery disease, cerebrovascular accident with left hemiparesis, shortness of breath with small right pleural effusion,, mixed hyperlipidemia, chronic atrial fib, hypertensive heart disease with acute on chronic combined systolic and diastolic congestive heart failure, sleep apnea and wears CPAP, depression, and type 2 diabetes mellitus who was brought to [facility] emergency room for evaluation due to altered mental status with confusion and right leg weakness. He was noted to have no weakness of the right arm and no speech difficulty. He did relate to EMS that he had not been eating or drinking much for the previous few weeks. He did have a UA and lab work completed by [facility]. Urinalysis showed mixed organisms with no specific organisms. Nitrates were negative with this specimen. He has had no fevers, chills, nausea or vomiting. Patient does get out of bed daily with the use of a lift. Otherwise he is bedfast. With evaluation in the emergency room CT of the head showed no intracranial acute processes. CTA of the head and neck showed moderate left internal carotid stenosis and mild right sided internal carotid stenosis with no occlusion or other fixed abnormality on the vessels of the head or neck. Urine specimen in the ER revealed nitrates and leuks. He was started on Rocephin treatment for UTI. CBC on admission showed a white blood cell count of 10,800 with a hemoglobin of 12.2 and hematocrit of 38. Chemistries did show a low potassium at 3.1. BUN was 16 and creatinine of 1.2. Liver function studies were not elevated. Troponin I's were 0.05x2. This a.m. patient is alone in his room. He is a poor historian this AM. He did relate to Dr. Dhillon that he had lost over 100 pounds. He denies chest pain and indicates that he is short of breath. States he has some nausea but has not been vomiting. <Tricia Porter - 12/10/21 08:43> [facility] History Medical History: Reports:: Arrhythmia, Atherosclerotic Heart Disease, Atrial Fibrillation, Congestive Heart Failure, Chronic Obstructive Pulmonary Disease (COPD), Coronary Artery Disease, Deep Vein Thrombosis, Depression, Diabetes Mellitus Type 2, Gastroesophageal Reflux Disease(GERD), Home Oxygen, Hyperlipidemia, Hypertension, Internal Pacemaker, Peripheral Artery Disease, Renal Disease Denies:: Cancer, Cerebrovascular Accident, Diabetes Mellitus Type 1, MRSA, Myocardial Infarction, Seizures <CharlotteTricia 12/10/21 08:43> *Have you ever received a pneumonia vaccine?: No (unknown) <Porter,Tricia 12/10/21 08:43> *Have you received a flu vaccine this season?: No (unk) <PorterTricia 12/10/21 08:43> Other Medical History: Reports: Anemia, Arthritis, Cataracts. Denies: Blood Transfusion Reaction <Tricia Porter 12/10/21 08:43> Laterality Cases: Bilateral: Arthroscopy Knee <Tricia Porter 12/10/21 08:43> Other Surgeries: Yes: CABG, Cardiac Catheterization, Cardiac Surgery, Cholecystectomy, Colonoscopy, Coronary Stent, EGD, Hernia Repair, Open Heart Surgery, Pacemaker, Skin Cancer Excision, Other (circumcision,cataract removal,plastic sx on face) <Tricia Porter 12/10/21 08:43> Amputation: No <Tricia Porter 12/10/21 08:43> Fractures: No <Annalise Porterhy 12/10/21 08:43> - *Social History Smoking Status: Never smoker <Tricia Porter 12/10/21 08:43> Alcohol Intake: never <Tricia Porter 12/10/21 08:43> Alcohol Intake Frequency:: other <Tricia Porter 12/10/21 08:43> Substance Use Type: denies use <Tricia Porter 12/10/21 08:43> *Occupational Status:: unemployed, retired <Tricia Porter 12/10/21 08:43> Housing: house <Tricia Porter 12/10/21 08:43> Household Members: spouse <Tricia Porter 12/10/21 08:4
--- NOTE | 2021-12-10 08:13 | PC.NURSE ---
SPOKE WITH ORIN RAMIREZ AND ASKED HER TO BRING IN PT HOME MEDICATIONS.
[2021-12-10 08:56] LABS: Lactate Dehydrogenase 164 U/L (313-618)
--- NOTE | 2021-12-10 09:16 | HMH.PTEV ---
Physical Therapy Evaluation Rehab PT IP Evaluation Start: 12/09/21 19:30 Freq: ONCE Status: Active Protocol: Document 12/10/21 09:09 PHOYAKOV (Rec: 12/10/21 09:15 PHORNE [id number]) Subjective/History History History 81 yowm adm to [facility] with UTI and increased weakness. He had a prior CVA, ~ 6 mos ago per his report, with L hemiplegia. HE reports he lives with his and he has a magento web developer for assistance at times. He transfers from bed to chair with sundeep lift and DOES NOT STAND AT BASELINE. He reports he has w/c at home as well. Subjective Subjective Pt reports no co this am, feeling some better, but remains weak. Rehab PT IP Eval Objective Appearance Patient Behavior Appropriate Patient Orientation Person,Place,Year Difficulty following instructions none Speech Pattern Clear,Delayed Ambulation Patient Able to Ambulate No Balance Ability to Arise Unable Sitting Balance Leans or slides in chair Standing Balance Unsteady Dynamic Sitting Balance Ability Poor Dynamic Standing Balance Ability Zero Transfers Bed Transfer Ability Maximum x 1 (75% assist) Chair Transfer Ability Total/Dependent (100%) Sit to Stand Bed Transfer Ability Total/Dependent (100%) Sit to Stand Chair Transfer Ability Total/Dependent (100%) ROM All Extremities PT ROM Status WFL MMT LUE PT MMT ABN Abnormal MMT Grade flaccid LLE PT MMT ABN Abnormal MMT Grade flaccid Rehab PT IP prob,goals,plan Problems Date of Evaluation: 12/10/21 PT IP Problems Bed Mobility,Transfers,Self care Rehab Potential Rehab Potential Fair Plan PT Intervention Plan Bed Mobility,Transfers,Self care,Therapeutic Exercise PT Plan Frequency BID Duration LOS Discharge Goals Bed Transfer Ability Maximum x 1 (75% assist) Sit to Stand Chair Transfer Ability Maximum x 2 (75% assist) Discharge Plan PT Discharge Plan Pt is most appropriate for rehab placement at this time, but could return home with family should hi weakness imporve as they have the
--- NOTE | 2021-12-10 10:04 | SW/DCPLANNER ---
Addendum entered by Vannessa Lozano 12/13/21 14:12: Patient information and order to resume home health services has been faxed to Cornel bojorquez/ [facility]. Addendum entered by Vannessa Lozano 12/12/21 10:45: Updated patient information has been faxed to Cornel bojorquez/ [facility]. Addendum entered by Vannessa Lozano 12/10/21 12:11: I spoke with in patient's room this AM. stated that she is not interested in placement at time of discharge for this patient. stated that patient is currently established with [employer], has private sitters at home and all appropriate DME (hospital bed, lift, wheelchair, home O2, ect.). I will continue to update until patient is medically stable for discharge. Discharge date is unknown at this time. Original Note: I called and spoke with this patient's regarding plans once patient is medically stable for discharge. stated that she is unsure at this time since patient was just admitted. I did explain to that the discharge planning process can be lengthy and the importance of beginning process early. I also informed of PT/OT evaluation: recommendation of placement. Patient's has requested sometime to speak with patient and family prior to making any plans. I will continue to follow up with . Patient was discharge from [facility] level of care at [place] [facility] on 11/07/21.
[2021-12-10 12:47] LABS: POC Glucose,Bedside 145 (70-110)
[2021-12-10 12:51] LABS: ABG Base Excess 11.1 mmol/L (-2.4-2.3); ABG HCO3 37.1 mmhg (22.0-26.0); ABG Oxygen Saturation 99 % (90-100); ABG PH 7.32 mmol/L (7.35-7.45); ABG PO2 128.5 mmhg (80-100); ABG TCO2 39.4 mmhg (23-27)
[2021-12-10 12:54] LABS: Oxygen 3 %
[2021-12-10 12:55] LABS: ABG PCO2 73.2 mmhg (35.0-45.0); Allen's Test acceptable; Source Left Radial
--- NOTE | 2021-12-10 13:00 | PC.NURSE ---
1237-ENTERED ROOM TO CHECK FOR ROUNDS PT WAS LETHARGIC/NON-VERBAL/DIFFICULT TO AROUSE. VITAL SIGNS WERE OBTAINED AND WNL EXCEPT FOR O2 LEVEL WHICH WAS 85% ON 3LNC. O2 FLOW RATE WAS INCREASED TO 4LNC. DR RAMOS WAS INFORMED OF PT STATUS AND ORDERED STAT ABG. 1253- ABG RESULTS CALLED TO DR RAMOS WHO ORDERED PT TO BE PLACED ON BIPAP. DR RAMOS DID NOT WANT A HEAD HEAD CT AT THIS TIME. 1300- BIPAP APPLIED AT THIS TIME.
--- NOTE | 2021-12-10 17:42 | PC.NURSE ---
PATIENT IS ALERT TO SELF. HE IS MORE ALERT AND CONTINUES ON BIPAP. BEING TURNED Q2HRS. HAS A SACRAL DRESSING IN PLACE AND IT IS C/D/I. CALL KENT WITHIN REACH. WILL CONTINUE TO MONITOR.
--- NOTE | 2021-12-10 17:48 | HMH.ACPN2 ---
Internal Medicine - PN: Subj *Date: 12/10/21 *Time: 17:48 Interval history: He was noted to be hypoxemic just after noon today and nursing staff increased O2 to 4L. He then became more lethargic with slurred speech and was not answering questions appropriately. ABG was ordered and pCO2 noted to be elevated. He was placed on BiPap and is now more alert and responding appropriately. Exam Vital signs and Labs for Last 24 Hours: Temp Pulse Resp BP Pulse Ox 97.5 F L 88 18 121/74 98 12/10/21 16:00 12/10/21 16:00 12/10/21 16:00 12/10/21 16:00 12/10/21 16:00 Laboratory Results - last 24 hr 12/09/21 16:33: Urine RBC Occasional, Urine WBC 10-20, Ur Squamous Epith Cells 3-5, Urine Bacteria 4+ 12/09/21 19:40: Troponin I 0.05 H 12/10/21 06:25: WBC 7.7 D, RBC 3.65 L, Hgb 11.7 L, Hct 36.0 L, MCV 98.6 H, MCH 31.9 H, MCHC 32.4, RDW 14.7, Plt Count 259, MPV 9.3, Neut % (Auto) 75.6, Lymph % (Auto) 15.6, [place] % (Auto) 7.6, Eos % (Auto) 0.7, Baso % (Auto) 0.5, Neut # (Auto) 5.8, Lymph # (Auto) 1.2, [place] # (Auto) 0.6, Eos # (Auto) 0.1, Baso # (Auto) 0.0 12/10/21 06:25: Sodium 138, Potassium 3.7, Chloride 96 L, Carbon Dioxide 36 H, Anion Gap 9.7, BUN 19, Creatinine 1.10, Estimated Creat Clear 70, Estimated GFR 64, Est GFR ( Amer) 77, Glucose 160 H, Calcium 8.6 12/10/21 06:25: Lactate Dehydrogenase 164 L 12/10/21 07:45: SARS-CoV-2 (PCR) Not detected, Influenza A Untype (PCR) Not detected, Influenza Type B (PCR) Not detected 12/10/21 12:39: POC Glucose 145 H 12/10/21 12:47: Specimen Source Left radial, O2 % 3, ABG pH 7.32 L, ABG pCO2 73.2 H, ABG pO2 128.5 H, ABG HCO3 37.1 H, ABG Total CO2 39.4 H, ABG O2 Saturation 99, ABG Base Excess 11.1 H, Cecil Test acceptable I & O for Last 24 hours: Intake & Output 12/08/21 12/09/21 12/10/21 12/11/21 11:59 11:59 11:59 11:59 Intake Total 120 / 120 1227 / 1227 Balance 120 / 120 1227 / 1227 Weight 213 lb 7.93 oz Microbiology Reports for the Last 24 Hours: Microbiology 12/09/21 16:33 Urine,Clean Catch Urine Culture - Preliminary NO GROWTH AFTER 24 HOURS Assessment and Plan (1) Altered mental status Status: Acute Category: Medical Code(s): R41.82 - Altered mental status, unspecified (2) Right leg weakness Status: Acute Category: Medical Code(s): R29.898 - Other symptoms and signs involving the musculoskeletal system (3) Urinary tract infection Status: Acute Qualifiers: Urinary tract infection type: acute cystitis Hematuria presence: without hematuria Qualified Code(s): N30.00 - Acute cystitis without hematuria Category: Medical Code(s): N39.0 - Urinary tract infection, site not specified (4) Pleural effusion Status: Acute Category: Medical Code(s): J90 - Pleural effusion, not elsewhere classified (5) Type 2 diabetes mellitus without complication, without long-term current use of insulin Status: Chronic Category: Medical Code(s): E11.9 - Type 2 diabetes mellitus without complications (6) Atrial fibrillation Status: Chronic Qualifiers: Atrial fibrillation type: chronic Category: Medical Code(s): I48.91 - Unspecified atrial fibrillation (7) Biventricular cardiac pacemaker in situ Status: Chronic Category: Medical Code(s): Z95.0 - Presence of cardiac pacemaker (8) CAD (coronary artery disease) Status: Chronic Qualifiers: Coronary Disease-Associated Artery/Lesion type: [place] artery [place] vs. transplanted heart: [place] heart Associated angina: with other forms of angina Qualified Code(s): I25.118 - Atherosclerotic heart disease of [place] coronary artery with other forms of angina pectoris Category: Medical Code(s): I25.10 - Atherosclerotic heart disease of [place] coronary artery without angina pectoris (9) HHD (hypertensive heart disease) Status: Chronic Qualifiers: Heart failure presence: with heart failure Heart failure type: combined
[2021-12-11] VITALS (11 sets, daily range): BP systolic 122–149; BP diastolic 59–73; PULSE 61–92; RESP 19–25; TEMP 36.6–37.2; O2SAT 92–100; BMI 31.6
--- NOTE | 2021-12-11 04:24 | PC.NURSE ---
Patient has rested intermittently throughout the night. Pt remained on Bipap all night with O2 sats 97-98%. Pt c/o of pain in BLE x1, medicated per MAR with relief. Pt had x2 large BM's this shift. Pt has been Q2H turn. remains at bedside.
--- NOTE | 2021-12-11 08:03 | US_ITS ---
FINAL REPORT CLINICAL HISTORY: therapeutic and diagnostic for large right effusio FINDINGS: ULTRASOUND GUIDED RIGHT THORACENTESIS HISTORY: Right pleural effusion. ATTENDING PHYSICIAN: Dr. Cintron PHYSICIAN GUN NUMBERER: Bill Humphrey PA-C TECHNIQUE: Informed consent was obtained from the patient. A timeout procedure was performed. The patient was prepped and draped in routine fashion over the right upper back. Local anesthesia was achieved with 1% lidocaine. Using imaging guidance with images acquired, an 18-gauge sheath needle was directed into the pleural fluid. Approximately 2.2 liters of yellow serous fluid was aspirated. IMPRESSION: Successful ultrasound guided right thoracentesis. Reviewed, Interpreted and Dictated by Neto Cintron III, MD Transcribed by Kya Capps PA-C Authenticated and [facility]
--- NOTE | 2021-12-11 08:04 | HMH.ACPN2 ---
<Tricia Porter - Last Filed: 12/11/21 08:04> Internal Medicine - PN: Subj *Date: 12/11/21 *Time: 08:04 Interval history: Patient remains on BiPAP with good O2 sats. He states his breathing is fine and he is not short of breath. He denies chest pain. He is to have a thoracentesis today. is at bedside. Exam Vital signs and Labs for Last 24 Hours: Temp Pulse Resp BP Pulse Ox 98.7 F 80 20 128/62 98 12/11/21 04:00 12/11/21 06:11 12/11/21 04:00 12/11/21 04:00 12/11/21 04:00 Laboratory Results - last 24 hr 12/10/21 06:25: Lactate Dehydrogenase 164 L 12/10/21 07:45: SARS-CoV-2 (PCR) Not detected, Influenza A Untype (PCR) Not detected, Influenza Type B (PCR) Not detected 12/10/21 12:39: POC Glucose 145 H 12/10/21 12:47: Specimen Source Left radial, O2 % 3, ABG pH 7.32 L, ABG pCO2 73.2 H, ABG pO2 128.5 H, ABG HCO3 37.1 H, ABG Total CO2 39.4 H, ABG O2 Saturation 99, ABG Base Excess 11.1 H, Cecil Test acceptable I & O for Last 24 hours: Intake & Output 12/08/21 12/09/21 12/10/21 12/11/21 11:59 11:59 11:59 11:59 Intake Total 120 / 120 1227 / 1227 Balance 120 / 120 1227 / 1227 Weight 213 lb 7.93 oz 213 lb 8 oz Microbiology Reports for the Last 24 Hours: Microbiology 12/09/21 16:33 Urine,Clean Catch Urine Culture - Preliminary NO GROWTH AFTER 24 HOURS - Constitutional no acute distress Comments: Wearing BiPAP. - *Routine Respiratory Exam Present: diminished air movement (on the right) - *Routine Cardiovascular Exam Present: RRR - *Routine Abdominal Exam Present: soft, normoactive bowel sounds. Absent: tenderness, distended - *Routine Extremities Exam Absent: edema, calf tenderness - *Routine Neurological Exam Present: alert Seems oriented. Very soft-spoken and difficult to understand especially with BiPAP on. Assessment and Plan (1) Altered mental status Status: Acute Category: Medical Code(s): R41.82 - Altered mental status, unspecified (2) Right leg weakness Status: Acute Category: Medical Code(s): R29.898 - Other symptoms and signs involving the musculoskeletal system (3) Urinary tract infection Status: Acute Qualifiers: Urinary tract infection type: acute cystitis Hematuria presence: without hematuria Qualified Code(s): N30.00 - Acute cystitis without hematuria Category: Medical Code(s): N39.0 - Urinary tract infection, site not specified (4) Pleural effusion Status: Acute Category: Medical Code(s): J90 - Pleural effusion, not elsewhere classified (5) Type 2 diabetes mellitus without complication, without long-term current use of insulin Status: Chronic Category: Medical Code(s): E11.9 - Type 2 diabetes mellitus without complications (6) Atrial fibrillation Status: Chronic Qualifiers: Atrial fibrillation type: chronic Category: Medical Code(s): I48.91 - Unspecified atrial fibrillation (7) Biventricular cardiac pacemaker in situ Status: Chronic Category: Medical Code(s): Z95.0 - Presence of cardiac pacemaker (8) CAD (coronary artery disease) Status: Chronic Qualifiers: Coronary Disease-Associated Artery/Lesion type: [place] artery [place] vs. transplanted heart: [place] heart Associated angina: with other forms of angina Qualified Code(s): I25.118 - Atherosclerotic heart disease of [place] coronary artery with other forms of angina pectoris Category: Medical Code(s): I25.10 - Atherosclerotic heart disease of [place] coronary artery without angina pectoris (9) HHD (hypertensive heart disease) Status: Chronic Qualifiers: Heart failure presence: with heart failure Heart failure type: combined systolic and diastolic Heart failure chronicity: acute on chronic Qualified Code(s): I11.0 - Hypertensive heart disease with heart failure; I50.43 - Acute on chronic combined systolic (congestive) and diastolic (congestive) heart failure
--- NOTE | 2021-12-11 10:59 | HMH.PULMCON ---
*Admission Date: 12/09/21 *Reason for consult:: Pleural effusion *History of present illness: Mr. Montez is a 81-year-old male no significant smoking history presented to the hospital with worsening respiratory status been gradually getting worse for the last 3 weeks despite diuretics as an outpatient basis and was eventually presented to the hospital concerning for stroke and was found to have large right-sided pleural effusion pulmonary was called for further management. [facility] History Medical History: Reports:: Arrhythmia, Atherosclerotic Heart Disease, Atrial Fibrillation, Congestive Heart Failure, Chronic Obstructive Pulmonary Disease (COPD), Coronary Artery Disease, Deep Vein Thrombosis, Depression, Diabetes Mellitus Type 2, Gastroesophageal Reflux Disease(GERD), Home Oxygen, Hyperlipidemia, Hypertension, Internal Pacemaker, Peripheral Artery Disease, Renal Disease Denies:: Cancer, Cerebrovascular Accident, Diabetes Mellitus Type 1, MRSA, Myocardial Infarction, Seizures *Have you ever received a pneumonia vaccine?: No (unknown) *Have you received a flu vaccine this season?: No (unk) Other Medical History: Reports: Anemia, Arthritis, Cataracts. Denies: Blood Transfusion Reaction Laterality Cases: Bilateral: Arthroscopy Knee Other Surgeries: Yes: No Previous Surgery, CABG, Cardiac Catheterization, Cardiac Surgery, Cholecystectomy, Colonoscopy, Coronary Stent, EGD, Hernia Repair, Open Heart Surgery, Pacemaker, Skin Cancer Excision, Other (circumcision,cataract removal,plastic sx on face) Amputation: No Fractures: No - *Social History Smoking Status: Never smoker Alcohol Intake: never Alcohol Intake Frequency:: other Substance Use Type: denies use *Occupational Status:: unemployed, retired Housing: house Household Members: spouse *Travel in the last 8 weeks: None - Psychiatric History Pschychiatric History:: Reports:: Depression Family Hx:: Heart Attack, Hypertension ROS - Cons Reports fatigue, Reports lack of energy - Eyes Reports blurry vision - ENT Denies bleeding gums - Card Reports shortness of breath, Reports shortness of breath with activity, Reports leg swelling - Resp Respiratory: Reports shortness of breath, Denies change in phlegm color, Reports dyspnea, Denies excessive phlegm production, Reports cough with sputum production - GI Gastrointestingal: Reports: dyspepsia, nausea, reflux - [place] Musculoskeletal: Reports abnormal gait, Reports muscle weakness - Psych Denies thoughts of hurting/killing others, Denies thoughts of hurting/killing yourself Meds Home Medications Medication Instructions Recorded Confirmed Type clonazePAM [Klonopin 1mg tablet] 1 mg PO HS 10/26/17 12/09/21 History acetaminophen 325 mg capsule 650 mg PO Q6HP PRN cap 11/23/19 12/10/21 History rivaroxaban 15 mg tablet 15 mg PO QPMWITHMEAL tab 11/19/20 12/10/21 History Metoprolol Tartrate [Lopressor 25 mg PO BID 03/08/21 12/09/21 History 25mg tablet] Digoxin 125 mcg PO DAILY 04/19/21 12/09/21 History atorvastatin 40 mg tablet 40 mg PO DAILY 10/21/21 12/09/21 History calcium carbonate 1,000 1 tab PO BIDP PRN tab 10/21/21 12/10/21 History mg-magnesium hydroxide 200 mg chewable tablet dantrolene 25 mg capsule 25 mg PO TID 10/21/21 12/09/21 History fluticasone propionate 50 1 spray NS DAILYP PRN 10/21/21 12/10/21 History mcg/actuation nasal spray,suspension metformin 500 mg tablet 500 mg PO DAILY 10/21/21 12/09/21 History multivitamin with minerals 1 tab PO DAILY 10/21/21 12/09/21 History polyethylene glycol 3350 17 17 g PO DAILY 10/21/21 12/09/21 History gram/dose oral powder Ferrous Sulfate [Ferrous Sulfate 325 mg PO DAILY 12/09/21 12/09/21 History 325mg Tab] Folic Acid 1 mg PO DAILY 12/09/21 12/09/21 History Furosemide [Furosemide 40MG tAB*] 40 mg PO DAILY 12/09/21 12/09/21 History Isosorbide Mononitrate [Isosorbide 30 mg PO DAILY 12/09/21 12/09/21 History Mononitrate ER] Sitagliptin Phosphate [Sean
--- NOTE | 2021-12-11 11:30 | XR_ITS ---
FINAL REPORT CLINICAL HISTORY: post thora COMPARISON: 12/09/2021 FINDINGS: SINGLE-VIEW CHEST There is cardiomegaly. The patient is status post median sternotomy. Left subclavian pacer is identified. There is marked improvement in the right pleural effusion. There is a moderate basilar pneumothorax measuring up to 31 mm in height. Right lung opacities are identified, may represent edema or pneumonia. IMPRESSION: Moderate basilar pneumothorax. Improvement in the right pleural effusion. Right lung opacities, may represent edema or pneumonia. Findings were reported to patient's nurse Argelia Bocanegra on 12/11/2021 at 1:06 p.m. Reviewed, Interpreted and Dictated by Neto Cintron III, MD Transcribed by Tricia Grossman Authenticated and [facility]
--- NOTE | 2021-12-11 12:01 | DIET.NUTRFU ---
nutritional status continues to be poor, was on BiPap most of afternoon yesterday, unable to eat. Today is NPO for thorcentsis, hoping to wean off BiPap after that. IVF was discontinued on 12/09, hydration status is WNL at this time will continue to follow
[2021-12-11 12:45] LABS: RBC,Body Fluid 23 cells/uL (< 10 X 10^3); Source, Body Fld. Thoracentesis Fluid; TNC,Body Fluid 922 cells/uL (< 1000); Volume,Body Fld. 80 mL
--- NOTE | 2021-12-11 13:14 | PC.NURSE ---
spoke with dr warren about patient pneumothorax that was called by radiology. stated to put patient on nonrebreather and keep sats at 100%. get repeat chest xray in three hours. if patient is to decline clinically then notify him.
[2021-12-11 13:36] LABS: Mononuclear WBCs,Body Fluid 98 %; Polynuclear WBC,Body Fluid 2 %
--- NOTE | 2021-12-11 15:00 | XR_ITS ---
FINAL REPORT CLINICAL HISTORY: Pneumothorax Follow COMPARISON: 12/11/2021 FINDINGS: SINGLE-VIEW CHEST The heart size is normal. The mediastinum is normal. There is a stable right moderate basilar pneumothorax. There are worsening right lung opacities, may represent edema. IMPRESSION: Stable right moderate basilar pneumothorax. Worsening right lung opacities, may represent edema. Reviewed, Interpreted and Dictated by Neto Cintron III, MD Transcribed by Tricia Grossman Authenticated and [facility]
--- NOTE | 2021-12-11 16:51 | PC.NURSE ---
Addendum entered by Blair Bocanegra RN 12/11/21 18:38: Sent stool sample to lab, as pt has had multiple loose stools this shift. Original Note: Was reported to this RN that pt did have moderate sz pneumothorax [address] Stanley made aware by speaking w/ Erica and Dr. Aguilar made aware as well and ordered pt to be on a non rebreather and sats 100% and repeat cxr. Sats remain 100 % at this time and is stable. Mx continues.
[2021-12-12] VITALS (12 sets, daily range): BP systolic 111–165; BP diastolic 66–90; PULSE 70–92; RESP 17–24; TEMP 36.4–37.1; O2SAT 90–100; BMI 31.5
--- NOTE | 2021-12-12 04:00 | PC.NURSE ---
pt rested some through the night, pt with mild labored breathing with 02 sats at 100% on non-rebreather, sitter remains at bedside through the night, pt a&O x 4 with mild confusion at times, VSS, will continue to monitor breathing and o2 sats
--- NOTE | 2021-12-12 08:10 | XR_ITS ---
FINAL REPORT CLINICAL HISTORY: f/u pneumothorax COMPARISON: December 11, 2021 FINDINGS: A single portable view of the chest was obtained. There is cardiomegaly with mild pulmonary vascular congestion. There is a left subclavian pacemaker. The mediastinum is within normal limits. There are persistent right lung opacities, favor edema. There is a small but enlarging right pleural effusion. There is an improved right pneumothorax with possible small residual apical pneumothorax. The bony thorax is intact. IMPRESSION: Improved but possible residual right pneumothorax. Small but enlarging right pleural effusion. Persistent right lung opacities, favor edema. Reviewed, Interpreted and Dictated by Neto Cintron III, MD Transcribed by Ida Smiley Authenticated and [facility]
--- NOTE | 2021-12-12 08:16 | HMH.ACPN2 ---
<Kaylynn Quiñones - Last Filed: 12/12/21 08:18> Internal Medicine - PN: Subj *Date: 12/12/21 *Time: 08:18 Interval history: He is awake and watching tv this morning. He denies pain or SOB. He is maintaining O2 sats of 100% on non-rebreather. He reports resting well overnight. Exam Vital signs and Labs for Last 24 Hours: Temp Pulse Resp BP Pulse Ox 97.5 F L 80 24 165/89 H 100 12/12/21 08:00 12/12/21 08:00 12/12/21 08:00 12/12/21 08:00 12/12/21 08:00 Laboratory Results - last 24 hr 12/10/21 11:15: Fluid Source Thoracentesis fluid, Fluid Volume 80, Fluid Appearance Slightly bloody, Fluid RBC (Auto) 23, Fld Tot Nucleated Cell 922, Fld Polynuclear WBCs % 2, Fld Mononuclear WBCs % 98 I & O for Last 24 hours: Intake & Output 12/09/21 12/10/21 12/11/21 12/12/21 11:59 11:59 11:59 11:59 Intake Total 120 / 120 1227 / 1227 1430 / 1430 Output Total 150 / 150 525 / 525 Balance 120 / 120 1077 / 1077 905 / 905 Weight 213 lb 7.93 oz 213 lb 8 oz 212 lb 11.937 oz Microbiology Reports for the Last 24 Hours: Microbiology 12/11/21 11:15 Pleural Fluid Gram Stain - Final 12/09/21 16:33 Urine,Clean Catch Urine Culture - Preliminary - Constitutional no acute distress - *Routine HEENT Exam Head: Present: normocephalic, atraumatic ENT: Present: mucous membranes moist - *Routine Respiratory Exam Absent: respiratory distress Comments: CTA throughout the left lung reyna, diminished on the right - *Routine Cardiovascular Exam Present: irregularly irregular - *Routine Abdominal Exam Present: soft, normoactive bowel sounds. Absent: tenderness, distended, guarding, firm - *Routine Extremities Exam Absent: calf tenderness Comments: LUE is flaccid and edematous; BLE's with 2+ pitting edema; all extremities are warm and without ttp - *Routine Neurological Exam Present: alert, oriented X3 Assessment and Plan (1) Altered mental status Status: Acute Category: Medical Code(s): R41.82 - Altered mental status, unspecified (2) Right leg weakness Status: Acute Category: Medical Code(s): R29.898 - Other symptoms and signs involving the musculoskeletal system (3) Urinary tract infection Status: Acute Qualifiers: Urinary tract infection type: acute cystitis Hematuria presence: without hematuria Qualified Code(s): N30.00 - Acute cystitis without hematuria Category: Medical Code(s): N39.0 - Urinary tract infection, site not specified (4) Pleural effusion Status: Acute Category: Medical Code(s): J90 - Pleural effusion, not elsewhere classified (5) Type 2 diabetes mellitus without complication, without long-term current use of insulin Status: Chronic Category: Medical Code(s): E11.9 - Type 2 diabetes mellitus without complications (6) Atrial fibrillation Status: Chronic Qualifiers: Atrial fibrillation type: chronic Category: Medical Code(s): I48.91 - Unspecified atrial fibrillation (7) Biventricular cardiac pacemaker in situ Status: Chronic Category: Medical Code(s): Z95.0 - Presence of cardiac pacemaker (8) CAD (coronary artery disease) Status: Chronic Qualifiers: Coronary Disease-Associated Artery/Lesion type: [place] artery [place] vs. transplanted heart: [place] heart Associated angina: with other forms of angina Qualified Code(s): I25.118 - Atherosclerotic heart disease of [place] coronary artery with other forms of angina pectoris Category: Medical Code(s): I25.10 - Atherosclerotic heart disease of [place] coronary artery without angina pectoris (9) HHD (hypertensive heart disease) Status: Chronic Qualifiers: Heart failure presence: with heart failure Heart failure type: combined systolic and diastolic Heart failure chronicity: acute on chronic Qualified Code(s): I11.0 - Hypertensive heart disease with heart failure; I50.43 - Acute on chronic combined systolic (congestive) and diastolic (con[place]
[2021-12-12 09:17] LABS: Adenovirus F 40/41, stool Not Detected (NotDetected); Astrovirus Not Detected (NotDetected); Campylobacter Not Detected (NotDetected); Clostridium Difficile A/B, PCR Not Detected (NotDetected); Cryptosporidium Not Detected (NotDetected); Cyclospora Cayetanesis Not Detected (NotDetected); Entamoeba histolytica Not Detected (NotDetected); Enteroaggregative E coli Not Detected (NotDetected); Enteropathogenic E coli Not Detected (NotDetected); Enterotoxigenic E coli Not Detected (NotDetected); Giardia lamblia Not Detected (NotDetected); Norovirus Not Detected (NotDetected); Plesimonas Shigalloides, PCR Not Detected (NotDetected); Rotavirus A Not Detected (NotDetected); Salmonella, PCR Not Detected (NotDetected); Sapovirus Not Detected (NotDetected); Shiga-like toxin E coli Not Detected (NotDetected); Shigella Enterovasive E coli Not Detected (NotDetected); Vibrio Cholerae Not Detected (NotDetected); Vibrio, PCR Not Detected (NotDetected); Yersinia Entercolitica, PCR Not Detected (NotDetected)
--- NOTE | 2021-12-12 09:35 | HMH.PULMPN ---
Internal Medicine - PN: Subj *Date: 12/12/21 *Time: 16:38 Interval history: No acute respiratory vents overnight. Respiratory system relatively stable. Patient admits improvement in his symptoms status post paracentesis. Exam - Constitutional Constitutional:: Present: no acute distress, comfortable - HENMT Exam HENMT: Present: normocephalic, atraumatic - Eye Exam Eyes:: Present: normal appearance both eyes and related structures - Neck Exam Neck:: Present: normal visual inspection - Respiratory Exam Respiratory:: Present: able to speak in complete sentences, no respiratory distress, crackles, wheezing - Cardiovascular Exam Cardiac:: Present: S1, S2 - GI Exam GI:: Present: soft - Skin Exam Skin: Present: warm, no rash - Neurological Exam Neurological: Present: alert, awake - Extremities Exam Extremities: Present: no cyanosis, no clubbing - Psychiatric Exam Psychiatric: Present: normal affect Assessment and Plan (1) Altered mental status Status: Acute Category: Medical Code(s): R41.82 - Altered mental status, unspecified (2) Right leg weakness Status: Acute Category: Medical Code(s): R29.898 - Other symptoms and signs involving the musculoskeletal system (3) Urinary tract infection Status: Acute Qualifiers: Urinary tract infection type: acute cystitis Hematuria presence: without hematuria Qualified Code(s): N30.00 - Acute cystitis without hematuria Category: Medical Code(s): N39.0 - Urinary tract infection, site not specified (4) Pleural effusion Status: Acute Category: Medical Code(s): J90 - Pleural effusion, not elsewhere classified (5) Type 2 diabetes mellitus without complication, without long-term current use of insulin Status: Chronic Category: Medical Code(s): E11.9 - Type 2 diabetes mellitus without complications (6) Atrial fibrillation Status: Chronic Qualifiers: Atrial fibrillation type: chronic Category: Medical Code(s): I48.91 - Unspecified atrial fibrillation (7) Biventricular cardiac pacemaker in situ Status: Chronic Category: Medical Code(s): Z95.0 - Presence of cardiac pacemaker (8) CAD (coronary artery disease) Status: Chronic Qualifiers: Coronary Disease-Associated Artery/Lesion type: [place] artery [place] vs. transplanted heart: [place] heart Associated angina: with other forms of angina Qualified Code(s): I25.118 - Atherosclerotic heart disease of [place] coronary artery with other forms of angina pectoris Category: Medical Code(s): I25.10 - Atherosclerotic heart disease of [place] coronary artery without angina pectoris (9) HHD (hypertensive heart disease) Status: Chronic Qualifiers: Heart failure presence: with heart failure Heart failure type: combined systolic and diastolic Heart failure chronicity: acute on chronic Qualified Code(s): I11.0 - Hypertensive heart disease with heart failure; I50.43 - Acute on chronic combined systolic (congestive) and diastolic (congestive) heart failure Category: Medical Code(s): I11.9 - Hypertensive heart disease without heart failure (10) HLD (hyperlipidemia) Status: Chronic Qualifiers: Hyperlipidemia type: mixed hyperlipidemia Qualified Code(s): E78.2 - Mixed hyperlipidemia Category: Medical Code(s): E78.5 - Hyperlipidemia, unspecified (11) Shortness of Breath Status: Chronic Category: Medical Code(s): R06.02 - Shortness of breath (12) Hypokalemia Status: Acute Category: Medical Code(s): E87.6 - Hypokalemia (13) Hypercapnic respiratory failure Status: Acute Category: Medical Code(s): J96.92 - Respiratory failure, unspecified with hypercapnia - Assessment and plan all Dx Assessment and Plan for all problems:: #Right pleural effusion: #Iatrogenic pneumothorax 80-year-old no significant smoking history. Previously in pulmonary clinic last year with PFTs and CT from January 2021 that was relative
[2021-12-12 11:37] LABS: Chloride 99 mmol/L (98-107); Sodium 136 mmol/L (136-145)
[2021-12-12 11:40] LABS: Blood Urea Nitrogen 19 mg/dl (9-20); Calcium 8.4 mg/dl (8.4-10.2); Carbon Dioxide 34 mmol/L (22.0-30.0); Creatinine Clearance Estimated 64 mL/min (50-200); Estimated Glomerular Filt Rate 58 ml/min (>60); GFR (African American) 70 ML/MIN (>60); Glucose 142 mg/dl (74-100)
--- NOTE | 2021-12-12 13:22 | DIET.NUTRFU ---
RD visited patient this morning, he could not recall breakfast intake. He did seem more alert s/p thorcentesis yesterday, ate 50% of lunch and dinner which was a improvement. Labs reviewed: hydration WNL with BS at 142. Medications reviewed: lasix, KCL/Nacl bolus, januvia, miralax, metformin and folic acid, Ca and ABT tx. LBM noted 12/10. Continues on diabetic diet with glucerna in place. Will continue to monitor
[2021-12-12 14:34] LABS: Albumin, Body Fluid 1.9 g/dL (Not Estab.); Glucose, Body Fluid 109 mg/dL (.); LD, Body Fluid 142 IU/L (.); Protein, Body Fluid 3.9 g/dL (.)
--- NOTE | 2021-12-12 17:34 | PC.NURSE ---
Pt up to chiar at this time. CB in reach and @ bedside. Pt has had a couple loose stools and barrier cream applied to scrotal redness. C Diff is negative. Utilized lift to transfer to chair. VSS. Mx continues.
[2021-12-13] VITALS (7 sets, daily range): BP systolic 111–148; BP diastolic 49–67; PULSE 80–89; RESP 19–22; TEMP 36.5–37.2; O2SAT 90–99; BMI 31.5
--- NOTE | 2021-12-13 04:26 | PC.NURSE ---
pt restless through the night with some mild confusion noted after routine PM meds given, pt receiving clonazepam at HS, pt with o2 sats 88-89 on room air at times, pt did not want to wear bipap and 02 placed at 2L, VSS, sitter at bedside through the night, lung sounds diminished, telemetry paced rythm, no other issues noted at this time.
--- NOTE | 2021-12-13 07:39 | XR_ITS ---
FINAL REPORT CLINICAL HISTORY: f/u pneumothorax and effusion COMPARISON: December 12, 2021 FINDINGS: A single portable view of the chest was obtained. There is evidence of median sternotomy. The heart is enlarged. The pulmonary vascularity is within normal limits. There are small to moderate right pleural effusions. There is a small medial right pneumothorax seen with 7 mm of pleural separation, slightly smaller than previous. The bony thorax is intact. IMPRESSION: Improved right medial pneumothorax. Small to moderate right pleural effusions. Cardiomegaly. Reviewed, Interpreted and Dictated by Neto Cintron III, MD Transcribed by Ida Smiley Authenticated and [facility]
--- NOTE | 2021-12-13 07:57 | HMH.ACPN2 ---
Internal Medicine - PN: Subj *Date: 12/13/21 *Time: 07:57 Exam Vital signs and Labs for Last 24 Hours: Temp Pulse Resp BP Pulse Ox 98.3 F 80 19 136/60 91 L 12/13/21 03:58 12/13/21 06:37 12/13/21 03:58 12/13/21 03:58 12/13/21 06:37 Laboratory Results - last 24 hr 12/11/21 11:15: Fluid Glucose 109, Fluid Total Protein 3.9, Fluid Albumin 1.9, Fluid LDH 142 12/11/21 18:00: Stl Aeromonas (PCR) Not detected, Stl C. cayetanensis PCR Not detected, Stool Rotavirus (PCR) Not detected, Stl Adenov F 40/41 PCR Not detected, Stool Astrovirus (PCR) Not detected, Stool Campylobacter PCR Not detected, Stl C.difficile Tox PCR Not detected, Stool Cryptosporidium PCR Not detected, Stl E.coli Shiga Tox PCR Not detected, Stool E coli O157 PCR Not detected, Stl Enterotoxigenic E PCR Not detected, Stool EPEC (PCR) Not detected, Stool EAEC (PCR) Not detected, Stl E. histolytica PCR Not detected, Stool Giardia Lamblia PCR Not detected, Stool Salmonella PCR Not detected, Stool Sapovirus (PCR) Not detected, Stl P. shigelloides PCR Not detected, Stl Shigella/EIEC PCR Not detected, St Y.enterocolitica PCR Not detected, Stool Vibrio (PCR) Not detected, Stl Vibrio cholerae PCR Not detected, Stl Norovirus GI/GII PCR Not detected 12/12/21 10:56: Sodium 136, Potassium 5.0 D, Chloride 99, Carbon Dioxide 34 H, Anion Gap 8.0, BUN 19, Creatinine 1.20, Estimated Creat Clear 64, Estimated GFR 58 L, Est GFR ( Amer) 70, Glucose 142 H, Calcium 8.4 I & O for Last 24 hours: Intake & Output 12/10/21 12/11/21 12/12/21 12/13/21 23:59 23:59 23:59 23:59 Intake Total 1347 / 1347 530 / 530 1190 / 1190 825 / 825 Output Total 375 / 675 450 / 550 250 / 250 Balance 1347 / 1347 155 / -145 740 / 640 575 / 575 Weight 96.84 kg 96.842 kg 96.5 kg 96.546 kg Microbiology Reports for the Last 24 Hours: Microbiology 12/11/21 11:15 Pleural Fluid Gram Stain - Final 12/11/21 11:15 Pleural Fluid Body Fluid Culture - Preliminary NO GROWTH AFTER 24 HOURS Assessment and Plan (1) Altered mental status Status: Acute Category: Medical Code(s): R41.82 - Altered mental status, unspecified (2) Right leg weakness Status: Acute Category: Medical Code(s): R29.898 - Other symptoms and signs involving the musculoskeletal system (3) Urinary tract infection Status: Acute Qualifiers: Urinary tract infection type: acute cystitis Hematuria presence: without hematuria Qualified Code(s): N30.00 - Acute cystitis without hematuria Category: Medical Code(s): N39.0 - Urinary tract infection, site not specified (4) Pleural effusion Status: Acute Category: Medical Code(s): J90 - Pleural effusion, not elsewhere classified (5) Type 2 diabetes mellitus without complication, without long-term current use of insulin Status: Chronic Category: Medical Code(s): E11.9 - Type 2 diabetes mellitus without complications (6) Atrial fibrillation Status: Chronic Qualifiers: Atrial fibrillation type: chronic Category: Medical Code(s): I48.91 - Unspecified atrial fibrillation (7) Biventricular cardiac pacemaker in situ Status: Chronic Category: Medical Code(s): Z95.0 - Presence of cardiac pacemaker (8) CAD (coronary artery disease) Status: Chronic Qualifiers: Coronary Disease-Associated Artery/Lesion type: [place] artery [place] vs. transplanted heart: [place] heart Associated angina: with other forms of angina Qualified Code(s): I25.118 - Atherosclerotic heart disease of [place] coronary artery with other forms of angina pectoris Category: Medical Code(s): I25.10 - Atherosclerotic heart disease of [place] coronary artery without angina pectoris (9) HHD (hypertensive heart disease) Status: Chronic Qualifiers: Heart failure presence: with heart failure Heart failure type: combined systolic and diastolic Heart failure chronicity: acute on chronic Qualified Code(s): I11.0
--- NOTE | 2021-12-13 08:14 | HMH.ACPN2 ---
Internal Medicine - PN: Laura *Date: 12/13/21 *Time: 08:14 Interval history: He has progressed despite it did not sleep well. No respiratory difficulty and in fact states breathing is better. He sitter thinks the clonazepam causes restlessness although he has been on this medication for years. Exam Vital signs and Labs for Last 24 Hours: Temp Pulse Resp BP Pulse Ox 98.3 F 80 19 136/60 91 L 12/13/21 03:58 12/13/21 06:37 12/13/21 03:58 12/13/21 03:58 12/13/21 06:37 Laboratory Results - last 24 hr 12/09/21 16:33: Urine Color Yellow, Urine Appearance Sl cloudy, Urine pH 6.0, Ur Specific [place] 1.020, Urine Protein Negative, Urine Glucose (UA) Negative, Urine Ketones Negative, Urine Blood 1+, Urine Nitrate Positive, Urine Bilirubin Negative, Urine Urobilinogen 0.2, Ur Leukocyte Esterase 2+ A, Urine RBC Occasional, Urine WBC 10-20, Ur Squamous Epith Cells 3-5, Urine Bacteria 4+ 12/11/21 11:15: Fluid Glucose 109, Fluid Total Protein 3.9, Fluid Albumin 1.9, Fluid LDH 142 12/11/21 18:00: Stl Aeromonas (PCR) Not detected, Stl C. cayetanensis PCR Not detected, Stool Rotavirus (PCR) Not detected, Stl Adenov F 40/41 PCR Not detected, Stool Astrovirus (PCR) Not detected, Stool Campylobacter PCR Not detected, Stl C.difficile Tox PCR Not detected, Stool Cryptosporidium PCR Not detected, Stl E.coli Shiga Tox PCR Not detected, Stool E coli O157 PCR Not detected, Stl Enterotoxigenic E PCR Not detected, Stool EPEC (PCR) Not detected, Stool EAEC (PCR) Not detected, Stl E. histolytica PCR Not detected, Stool Giardia Lamblia PCR Not detected, Stool Salmonella PCR Not detected, Stool Sapovirus (PCR) Not detected, Stl P. shigelloides PCR Not detected, Stl Shigella/EIEC PCR Not detected, St Y.enterocolitica PCR Not detected, Stool Vibrio (PCR) Not detected, Stl Vibrio cholerae PCR Not detected, Stl Norovirus GI/GII PCR Not detected 12/12/21 10:56: Sodium 136, Potassium 5.0 D, Chloride 99, Carbon Dioxide 34 H, Anion Gap 8.0, BUN 19, Creatinine 1.20, Estimated Creat Clear 64, Estimated GFR 58 L, Est GFR ( Amer) 70, Glucose 142 H, Calcium 8.4 I & O for Last 24 hours: Intake & Output 12/10/21 12/11/21 12/12/21 12/13/21 11:59 11:59 11:59 11:59 Intake Total 120 / 120 1227 / 1227 1430 / 1430 1115 / 1115 Output Total 150 / 150 525 / 525 400 / 400 Balance 120 / 120 1077 / 1077 905 / 905 715 / 715 Weight 213 lb 7.93 oz 213 lb 8 oz 212 lb 11.937 oz 212 lb 13.56 oz Microbiology Reports for the Last 24 Hours: Microbiology 12/09/21 16:33 Urine,Clean Catch Urine Culture - Final Staphylococcus epidermidis 12/11/21 11:15 Pleural Fluid Gram Stain - Final 12/11/21 11:15 Pleural Fluid Body Fluid Culture - Preliminary NO GROWTH AFTER 24 HOURS Narrative: He is awake and alert sitting up in bed. Voice is stronger. Color is good. Breath sounds remain diminished on the right. No rales or wheezes. Heart is regular. Extremities no edema. Assessment and Plan (1) Pleural effusion Status: Acute Category: Medical Code(s): J90 - Pleural effusion, not elsewhere classified (2) Altered mental status Status: Acute Category: Medical Code(s): R41.82 - Altered mental status, unspecified (3) Right leg weakness Status: Acute Category: Medical Code(s): R29.898 - Other symptoms and signs involving the musculoskeletal system (4) Urinary tract infection Status: Acute Qualifiers: Urinary tract infection type: acute cystitis Hematuria presence: without hematuria Qualified Code(s): N30.00 - Acute cystitis without hematuria Category: Medical Code(s): N39.0 - Urinary tract infection, site not specified (5) Type 2 diabetes mellitus without complication, without long-term current use of insulin Status: Chronic Category: Medical Code(s): E11.9 - Type 2 diabetes mellitus without complications (6) Atrial fibrillation Status: Chronic Qualifiers:
--- NOTE | 2021-12-13 09:28 | HMH.PULMPN ---
Internal Medicine - PN: Subj *Date: 12/13/21 *Time: 12:21 Interval history: No acute respiratory vents overnight. Patient denies any new complaints Exam - Constitutional Constitutional:: Present: no acute distress, comfortable - HENMT Exam HENMT: Present: normocephalic - Eye Exam Eyes:: Present: normal appearance both eyes and related structures - Neck Exam Neck:: Present: normal visual inspection - Respiratory Exam Respiratory:: Present: able to speak in complete sentences, normal respiratory effort. Absent: no respiratory distress, wheezing Comments: Decreased breath sounds right lower lung reyna - Cardiovascular Exam Cardiac:: Present: S1, S2 - GI Exam GI:: Present: soft - Skin Exam Skin: Present: warm, no rash - Neurological Exam Neurological: Present: alert, awake - Extremities Exam Extremities: Present: no cyanosis, no clubbing Assessment and Plan (1) Pleural effusion Status: Acute Category: Medical Code(s): J90 - Pleural effusion, not elsewhere classified (2) Altered mental status Status: Acute Category: Medical Code(s): R41.82 - Altered mental status, unspecified (3) Right leg weakness Status: Acute Category: Medical Code(s): R29.898 - Other symptoms and signs involving the musculoskeletal system (4) Urinary tract infection Status: Acute Qualifiers: Urinary tract infection type: acute cystitis Hematuria presence: without hematuria Qualified Code(s): N30.00 - Acute cystitis without hematuria Category: Medical Code(s): N39.0 - Urinary tract infection, site not specified (5) Type 2 diabetes mellitus without complication, without long-term current use of insulin Status: Chronic Category: Medical Code(s): E11.9 - Type 2 diabetes mellitus without complications (6) Atrial fibrillation Status: Chronic Qualifiers: Atrial fibrillation type: chronic Category: Medical Code(s): I48.91 - Unspecified atrial fibrillation (7) Biventricular cardiac pacemaker in situ Status: Chronic Category: Medical Code(s): Z95.0 - Presence of cardiac pacemaker (8) CAD (coronary artery disease) Status: Chronic Qualifiers: Coronary Disease-Associated Artery/Lesion type: [place] artery [place] vs. transplanted heart: [place] heart Associated angina: with other forms of angina Qualified Code(s): I25.118 - Atherosclerotic heart disease of [place] coronary artery with other forms of angina pectoris Category: Medical Code(s): I25.10 - Atherosclerotic heart disease of [place] coronary artery without angina pectoris (9) HHD (hypertensive heart disease) Status: Chronic Qualifiers: Heart failure presence: with heart failure Heart failure type: combined systolic and diastolic Heart failure chronicity: acute on chronic Qualified Code(s): I11.0 - Hypertensive heart disease with heart failure; I50.43 - Acute on chronic combined systolic (congestive) and diastolic (congestive) heart failure Category: Medical Code(s): I11.9 - Hypertensive heart disease without heart failure (10) HLD (hyperlipidemia) Status: Chronic Qualifiers: Hyperlipidemia type: mixed hyperlipidemia Qualified Code(s): E78.2 - Mixed hyperlipidemia Category: Medical Code(s): E78.5 - Hyperlipidemia, unspecified (11) Shortness of Breath Status: Chronic Category: Medical Code(s): R06.02 - Shortness of breath (12) Hypokalemia Status: Acute Category: Medical Code(s): E87.6 - Hypokalemia (13) Hypercapnic respiratory failure Status: Acute Category: Medical Code(s): J96.92 - Respiratory failure, unspecified with hypercapnia - Assessment and plan all Dx Assessment and Plan for all problems:: #Right pleural effusion: #Iatrogenic pneumothorax 80-year-old no significant smoking history. Previously in pulmonary clinic last year with PFTs and CT from January 2021 that was relatively normal with stable pulmonary nodules and small right
--- NOTE | 2021-12-13 14:16 | PC.NURSE ---
care management verified with md that patient did not need any antibiotics at discharge
--- NOTE | 2021-12-13 20:22 | HMH.DCSUM ---
General - General Admission date:: 12/09/21 <Edy Dhillon - 01/01/22 22:34> 12/09/21 <Tricia Porter - 12/13/21 21:23> Discharge date: 12/13/21 <Tricia Porter - 12/13/21 21:23> HPI HPI: Mr. Hernadez is an 81-year-old male with an extensive medical history to include coronary artery disease, cerebrovascular accident with left hemiparesis, shortness of breath with small right pleural effusion,, mixed hyperlipidemia, chronic atrial fib, hypertensive heart disease with acute on chronic combined systolic and diastolic congestive heart failure, sleep apnea and wears CPAP, depression, and type 2 diabetes mellitus who was brought to [facility] emergency room for evaluation due to altered mental status with confusion and right leg weakness. He was noted to have no weakness of the right arm and no speech difficulty. He did relate to EMS that he had not been eating or drinking much for the previous few weeks. He did have a UA and lab work completed by [facility]. Urinalysis showed mixed organisms with no specific organisms. Nitrates were negative with this specimen. He had no fevers, chills, nausea or vomiting. Patient was noted to get out of bed daily with the use of a lift. Otherwise he was bedfast. With evaluation in the emergency room CT of the head showed no intracranial acute processes. CTA of the head and neck showed moderate left internal carotid stenosis and mild right sided internal carotid stenosis with no occlusion or other fixed abnormality on the vessels of the head or neck. Urine specimen in the ER revealed nitrates and leuks. He was started on Rocephin treatment for UTI. CBC on admission showed a white blood cell count of 10,800 with a hemoglobin of 12.2 and hematocrit of 38. Chemistries did show a low potassium at 3.1. BUN was 16 and creatinine of 1.2. Liver function studies were not elevated. Troponin I's were 0.05x2. The following a.m. patient was alone in his room. He was a poor historian. He did relate to Dr. Dhillon that he had lost over 100 pounds. He denied chest pain and indicated that he was short of breath. He stated that he had some nausea but had not been vomiting. <Tricia Porter - 12/13/21 21:23> Hospital Course Hospital Course: On admission patient was found to have a right pleural effusion. He did have a thoracentesis. He was followed by pulmonary, Dr. Aguilar. He did develop lethargy aftr admisision and was placed on BiPAP. At that time ABGs revealed a pH of 7.32 PCO2 of 73.2 PO2 of 128.5 and a bicarb of 37.1. After thoracentesis his breathing did improve although he did develop a pneumothorax. Serial chest x-rays were done and remained stable. He was able to be on room air and use oxygen as needed. He received DuoNebs every 6 hours. He was on Rocephin for urinary tract infection. He was placed on duo nebs every 6 hours. Potassium levels were corrected. He also had a PT and OT evaluation. Final pleural fluid studies were pending at time of discharge. On 12/13/2021 patient appeared stronger. He stated his breathing had improved. His voice was stronger. Care management worked with and family for disposition. His Family decided to take patient home for ongoing care with continued home health and sitters as prior to admission. On this date he was discharged home in stable condition. Meds as per medication reconciliation sheet. Follow-up to be with Dr. Aguilar in 1 week with chest x-ray. <Tricia Porter - 12/13/21 21:23> Objective Vital signs: Temp Pulse Resp BP Pulse Ox 97.7 F 80 21 111/49 L 90 L 12/13/21 12:00 12/13/21 12:00 12/13/21 12:00 12/13/21 12:00 12/13/21 12:00 <Edy Dhillon - 01/01/22 22:34> Temp Pulse Resp BP Pulse Ox 97.7 F 80 21 111/49 L 90 L 12/13/21 12:00 12/13/21 12:00 12/13/21 12:00 12/13/21 12:00 12/13/21 12:00 <Tricia Porter - 12/13/21 21:23> Narrative: Exam Vit
--- NOTE | 2021-12-16 14:51 | CARE MANAGER ---
Contacted patient's who states that the patient has been admitted to with fluid overload. They wanted to know what home health was supposed to come and told her we have [employer] as the company coming. Denies any other questions or concerns. DRE Harper
== END 2021-12-13 16:11 | disposition home health service (06) | DRG 291 ==
LOC: ER 16:27 → 2ND 19:03
PROVIDERS: Admitting Provider Family Medicine; Emergency Provider Emergency Medicine; PCP Family Medicine; Visit Provider Family Medicine
DX: I11.0 Hypertensive heart disease with heart failure (principal); J96.02 Acute respiratory failure with hypercapnia; I50.43 Acute on chronic combined systolic (congestive) and diastolic (congestive) heart failure; N39.0 Urinary tract infection, site not specified; I48.20 Chronic atrial fibrillation, unspecified; J90 Pleural effusion, not elsewhere classified; Z20.822 Contact with and (suspected) exposure to COVID-19; E87.6 Hypokalemia; R53.1 Weakness; I25.10 Atherosclerotic heart disease of native coronary artery without angina pectoris; I65.23 Occlusion and stenosis of bilateral carotid arteries; Z86.718 Personal history of other venous thrombosis and embolism; Z99.81 Dependence on supplemental oxygen; Z95.5 Presence of coronary angioplasty implant and graft; Z95.0 Presence of cardiac pacemaker; Z95.1 Presence of aortocoronary bypass graft; Z85.828 Personal history of other malignant neoplasm of skin; E11.51 Type 2 diabetes mellitus with diabetic peripheral angiopathy without gangrene; Z79.84 Long term (current) use of oral hypoglycemic drugs; I69.398 Other sequelae of cerebral infarction; K21.9 Gastro-esophageal reflux disease without esophagitis; Z74.01 Bed confinement status; E78.2 Mixed hyperlipidemia
CPT/HCPCS: 32555; 36415; 70450; 70496; 70498; 71045; 80048; 80053; 81001; 82042; 82803; 82945; 82962; 83615; 84155; 84484; 85025; 85610; 85730; 87070; 87086; 87088; 87186; 87205; 87324; 87506; 88112; 88305; 89051; 94640; 94660; 97110; 97163; 99285; C9803; J0696; Q9967; U0003; U0005

== ENCOUNTER 2021-12-14 01:55 | Emergency (ER) | payer MEDICARE, OTHER, SELFPAY ==
[2021-12-14 01:45] VITALS: BP 137/71; PULSE 85; RESP 20; TEMP 36.9; O2SAT 92; BMI 31.1
--- NOTE | 2021-12-14 02:16 | HMH.EDGENADL ---
ED Disposition Clinical Impression: Encounter for medical assessment Disposition: Home, Self-Care Condition on Discharge: Good Referrals: Edy Dhillon MD [Primary Care Provider] - - Critical Care Critical Care Time: No Attestation: On 12/14/21, the high probability of a clinically significant, sudden or life threatening deterioration of the following system(s) required my full and direct attention, intervention and personal management. The time I documented below is in addition to time spent performing reported procedures but includes the following listed in this critical care notation. Medical Decision Making - Medical Records Medical records reviewed: Yes: I reviewed the patient's medical records. - Jarek Inquiry Pt receiving controlled substance: No Vital Signs: 12/14/21 01:45 Temperature 98.5 F Temperature Source Oral Pulse Rate [Right] 85 Respiratory Rate 20 Blood Pressure [Right Arm] 137/71 Blood Pressure Mean [Right Arm] 93 02 Sat by Pulse Oximetry 92 L Oxygen Delivery Method Room Air Medical Decision Narrative: 81 yo M discharged this afternoon and with severe shortness of breath tonight. Fire department stated that his oxygen was not plugged in adequately and when they fixed it his oxygen returned to normal limits. He is alert and oriented with no complaints currently and he present on his home 2 L. See no need to complete any work-up as the patient feels good and wants to go home. He will be discharged back with EMS confirming that his oxygen is working prior to leaving him. General Adult HPI - General Chief complaint: Shortness of Breath/Dyspnea Stated complaint: SOA, recently d/c on O2 Time Seen by Provider: 12/14/21 02:19 Mode of Arrival: EMS Limitations: No Limitations Description of Symptoms (Recalled from ER Triage Doc. by RN): EMS called out for SOA. pt states when he woke up he was SOA but has no c/o @ this time. - History of Present Illness HPI narrative: 81-year-old male brought in by EMS after they were called out for shortness of breath and difficulty breathing. Fire department arrived first and found that his oxygen had not been turned on or plugged inappropriately and when they rectify the situation his breathing improved significantly his oxygen sats were normal. He continued to improve after EMS arrived and he had no complaints at that time. Patient states that he feels well at this point time has no pain and no difficulty breathing. He has no complaints and would like to go back home. - Related Data Home Medications Medication Instructions Recorded Confirmed clonazePAM [Klonopin 1mg tablet] 1 mg PO HS 10/26/17 12/09/21 acetaminophen 325 mg capsule 650 mg PO Q6HP PRN cap 11/23/19 12/10/21 rivaroxaban 15 mg tablet 15 mg PO QPMWITHMEAL tab 11/19/20 12/10/21 Metoprolol Tartrate [Lopressor 25 mg PO BID 03/08/21 12/09/21 25mg tablet] Digoxin 125 mcg PO DAILY 04/19/21 12/09/21 atorvastatin 40 mg tablet 40 mg PO DAILY 10/21/21 12/09/21 calcium carbonate 1,000 1 tab PO BIDP PRN tab 10/21/21 12/10/21 mg-magnesium hydroxide 200 mg chewable tablet dantrolene 25 mg capsule 25 mg PO TID 10/21/21 12/09/21 fluticasone propionate 50 1 spray NS DAILYP PRN 10/21/21 12/10/21 mcg/actuation nasal spray,suspension metformin 500 mg tablet 500 mg PO DAILY 10/21/21 12/09/21 multivitamin with minerals 1 tab PO DAILY 10/21/21 12/09/21 polyethylene glycol 3350 17 17 g PO DAILY 10/21/21 12/09/21 gram/dose oral powder Ferrous Sulfate [Ferrous Sulfate 325 mg PO DAILY 12/09/21 12/09/21 325mg Tablet] Folic Acid 1 mg PO DAILY 12/09/21 12/09/21 Furosemide [Furosemide 40MG tAB*] 40 mg PO DAILY 12/09/21 12/09/21 Isosorbide Mononitrate [Isosorbide 30 mg PO DAILY 12/09/21 12/09/21 Mononitrate ER] Sitagliptin Phosphate [Januvia 50 mg PO DAILY 12/09/21 12/09/21 50mg Tablet] Tramadol HCl [Tramadol 50mg 50 mg PO BIDP PRN 12/09/21 12/10/21 Tab] Sertraline
[2021-12-14 02:18] VITALS: BP 125/69; PULSE 76; RESP 18; TEMP 36.9; O2SAT 98
== END 2021-12-14 02:35 | disposition home or self-care (01) ==
PROVIDERS: Emergency Provider Student in an Organized Health Care Education/Training Program; PCP Family Medicine
DX: R07.9 Chest pain, unspecified (principal); R20.2 Paresthesia of skin; D64.9 Anemia, unspecified; I11.0 Hypertensive heart disease with heart failure; I50.22 Chronic systolic (congestive) heart failure; I48.91 Unspecified atrial fibrillation; I25.119 Atherosclerotic heart disease of native coronary artery with unspecified angina pectoris; I70.1 Atherosclerosis of renal artery; N28.9 Disorder of kidney and ureter, unspecified; K21.9 Gastro-esophageal reflux disease without esophagitis; I73.9 Peripheral vascular disease, unspecified; E78.5 Hyperlipidemia, unspecified; M19.90 Unspecified osteoarthritis, unspecified site; H26.9 Unspecified cataract; J44.9 Chronic obstructive pulmonary disease, unspecified; F32.A Depression, unspecified; Z79.01 Long term (current) use of anticoagulants; Z79.1 Long term (current) use of non-steroidal anti-inflammatories (NSAID); Z99.81 Dependence on supplemental oxygen; Z79.51 Long term (current) use of inhaled steroids; Z79.899 Other long term (current) drug therapy; Z88.2 Allergy status to sulfonamides; Z88.8 Allergy status to other drugs, medicaments and biological substances; Z95.5 Presence of coronary angioplasty implant and graft; Z86.718 Personal history of other venous thrombosis and embolism; Z82.49 Family history of ischemic heart disease and other diseases of the circulatory system
CPT/HCPCS: 99282

== ENCOUNTER → 2022-02-05 12:19 | Outpatient (CLI) | payer MEDICARE, OTHER, SELFPAY ==
[2022-02-05 13:07] LABS: Hemoglobin A1C 6.1 % (4.0-6.0)
== END ==
PROVIDERS: PCP Family Medicine; Visit Provider Family Medicine
DX: E11.9 Type 2 diabetes mellitus without complications (principal); Z79.84 Long term (current) use of oral hypoglycemic drugs
CPT/HCPCS: 83036

== ENCOUNTER 2022-03-20 13:49 | Emergency (ER) | payer MEDICARE, OTHER, SELFPAY ==
[2022-03-20] VITALS (10 sets, daily range): BP systolic 119–148; BP diastolic 63–79; PULSE 70–88; RESP 18–22; TEMP 36.6–37.1; O2SAT 92–97; BMI 28.7
--- NOTE | 2022-03-20 13:50 | ECG_ITS ---
APPROVED REPORT Exam: Resting ECG HR:81 bpm ECG Measurements Heart Rate 81 AXES WI 257 P 100 QRSd 171 QRS 261 QT 437 T 87 QTc 474 Conclusion ELECTRONIC VENTRICULAR PACEMAKER ABNORMAL RHYTHM ECG UNCONFIRMED REPORT Electronically signed by : Gilberto Marquez MD 03/20/2022 19:23:01
--- NOTE | 2022-03-20 13:56 | XR_ITS ---
FINAL REPORT CLINICAL HISTORY: sob COMPARISON: December 13, 2021 FINDINGS: PORTABLE CHEST A single portable view of the chest was obtained. There are postoperative changes from median sternotomy. A left subclavian pacemaker is present. There is cardiomegaly. The mediastinum is within normal limits. There are right lung base opacities favoring atelectasis. There is a moderate right pleural effusion which is larger. The bony thorax is intact. IMPRESSION: Right lung base opacities favoring atelectasis. Moderate right pleural effusion, larger Reviewed, Interpreted and Dictated by Neto Cintron III, MD Transcribed by Skye Tucker Authenticated and . [facility]
--- NOTE | 2022-03-20 13:58 | HMH.EDGENADL ---
Discharge Plan Disposition Patient Disposition: Home, Self-Care Condition: Good Chief Complaint: Weakness Prescriptions Prescriptions: No Action acetaminophen [Tylenol] 325 mg capsule 650 mg PO Q6HP PRN (Reason: Mild Pain,Fever,Headache) atorvastatin 40 mg tablet 40 mg PO DAILY dantrolene 25 mg capsule 25 mg PO TID Jae Multiple/Chelated Mineral Tablet 1 tab PO DAILY metformin 500 mg tablet 500 mg PO DAILY polyethylene glycol 3350 [Miralax] 17 gram/dose powder 17 g PO DAILY ferrous sulfate 325 MG tablet 325 mg PO DAILY sertraline 50 MG tablet 50 mg PO DAILY trazodone 50 mg Tablet 50 mg PO HS alogliptin 25 mg Tablet 25 mg PO DAILY Xarelto 15 mg tablet 15 mg PO DAILY digoxin 125 MCG tablet 125 mcg PO DAILY Referrals Follow up/Referrals: Edy Dhillon MD [Primary Care Provider] - See instructions Activity Restrictions/Add. Instructions Additional Instructions/Restrictions: Follow-up with Dr. Dhillon if difficulty breathing, fever, severe cough, difficulty swallowing or choking. Clinical Impressions Clinical Impression: Choking episode Discharge ED Provider: Tod Conner General Adult HPI General Chief complaint: Weakness Stated complaint: possible pneumonia Time Seen by Provider: 03/20/22 14:55 History of Present Illness HPI narrative: The patient is brought in by ambulance. Home health was apparently concerned because he was choking. Nurse reports to me that state he did he has been choking for about a week. Squad was called for possible pneumonia . Patient denies any difficulty breathing. States that he has congestion in the head. He denies any pain. Denies any fever. He has a stroke with a left hemiparesis which she says occurred in May of last year. Related Data Home Medications Medication Instructions Recorded Confirmed acetaminophen 325 mg capsule 650 mg PO Q6HP PRN Mild 11/23/19 03/20/22 (Tylenol) Pain,Fever,Headache digoxin 125 mcg (0.125 mg) tablet 125 mcg PO DAILY HEART RATE 04/19/21 03/20/22 atorvastatin 40 mg tablet 40 mg PO DAILY Cholesterol 10/21/21 03/20/22 dantrolene 25 mg capsule 25 mg PO TID muscle relaxer 10/21/21 03/20/22 metformin 500 mg tablet 500 mg PO DAILY Diabetes 10/21/21 03/20/22 multivitamin with minerals (Jae 1 tab PO DAILY Supplement 10/21/21 03/20/22 Multiple/Chelated Mineral tablet) polyethylene glycol 3350 17 17 g PO DAILY CONSTIPATION 10/21/21 03/20/22 gram/dose oral powder (Miralax) ferrous sulfate 325 mg (65 mg 325 mg PO DAILY Supplement 12/09/21 03/20/22 iron) tablet sertraline 50 mg tablet 50 mg PO DAILY MOOD 12/10/21 03/20/22 alogliptin 25 mg tablet 25 mg PO DAILY Diabetes 03/20/22 03/20/22 rivaroxaban 15 mg tablet (Xarelto) 15 mg PO DAILY Blood thinner 03/20/22 03/20/22 trazodone 50 mg tablet 50 mg PO HS sleep 03/20/22 03/20/22 Allergies Allergy/AdvReac Type Severity Reaction Status Date / Time apixaban [From ELIQUIS] Allergy Mild I-RASH Verified 10/21/21 09:37 doxycycline [DOXYCYCLINE] Allergy Mild MCINTYRE Verified 10/21/21 09:37 SKIN, BLISTERS insulin aspart Allergy Mild I-RASH Verified 10/21/21 09:37 [INSULIN ASPART] Insulins Allergy Mild Verified 10/21/21 09:37 latex [LATEX] Allergy Mild I-RASH Verified 10/21/21 09:37 lovastatin [LOVASTATIN] Allergy Mild I-RASH Verified 10/21/21 09:37 oxycodone [From PERCOCET] Allergy Mild I-RASH Verified 10/21/21 09:37 pantoprazole [From PROTONIX] Allergy Mild I-RASH Verified 10/21/21 09:37 pioglitazone Allergy Mild I-RASH Verified 10/21/21 09:37 [From ACTOPLUS MET] sulfamethoxazole Allergy Mild I-RASH Verified 10/21/21 09:37 [From SEPTRA] trimethoprim [From SEPTRA] Allergy Mild I-RASH Verified 10/21/21 09:37 ferrous gluconate AdvReac Rash Verified 10/21/21 09:37 [facility] Medical History (Updated 03/20/22 @ 19:24 by Tod Conner MD) Angina, class III A
[2022-03-20 14:59] LABS: Basophils % 0.4 % (0.1-2.0); Eosinophils % 0.5 % (0.1-12.0); Hematocrit 34.2 % (42.0-52.0); Lymphocytes # 0.9 K/mm3 (0.7-4.5); Lymphocytes % 11.9 % (10-50); Mean Corpuscular HGB Conc 32.2 g/dL (31.8-35.4); Mean Corpuscular Hemoglobin 31.6 pg (27.0-31.2); Mean Corpuscular Volume 97.9 fl (80-94); Mean Platelet Volume 9.5 fl (7.4-10.4); Monocytes # 0.4 K/mm3 (0.1-1.0); Monocytes % 5.6 % (1.7-9.3); Neutrophils # 6.4 K/mm3 (1.8-7.8); Neutrophils % 81.6 % (37.0-80.0); Platelet Count 315 K/mm3 (142-424); Red Blood Count 3.49 M/mm3 (4.60-6.20); Red Cell Distribution Width 15.4 % (11.5-17.5); White Blood Count 7.9 K/mm3 (4.8-10.8)
[2022-03-20 15:01] LABS: Coronavirus 19, PCR Not Detected (NotDetected); Influenza A, PCR Not Detected (NotDetected); Influenza B, PCR Not Detected (NotDetected)
[2022-03-20 15:05] LABS: Alanine Aminotransferase 18 U/L (12-78); Albumin Level 3.2 g/dl (3.5-5.0); Alkaline Phosphatase 99 U/L (38-126); Anion Gap 14.4 mEq/L (5-15); Aspartate Amino Transferase 31 U/L (17-59); Bilirubin,Total 0.2 mg/dl (0.2-1.3); Blood Urea Nitrogen 22 mg/dl (9-20); Calcium 8.3 mg/dl (8.4-10.2); Carbon Dioxide 35 mmol/L (22.0-30.0); Chloride 91 mmol/L (98-107); Creatinine Clearance Estimated 65 mL/min (50-200); Estimated Glomerular Filt Rate 64 ml/min (>60); GFR (African American) 77 ML/MIN (>60); Globulin 3.3 g/dL (1.3-3.2); Glucose 134 mg/dl (74-100); Potassium 3.4 mmoL/L (3.5-5.1); Sodium 137 mmol/L (136-145); Total Protein,Serum 6.5 g/dl (6.3-8.2)
[2022-03-20 15:16] LABS: Troponin I 0.07 ng/ml (0.00-0.034)
--- NOTE | 2022-03-20 15:31 | PC.NURSE ---
pt failed swallow screen.
--- NOTE | 2022-03-20 15:37 | PC.NURSE ---
pt in room at this time with no complaints at this time
--- NOTE | 2022-03-20 16:38 | PC.NURSE ---
back to room
--- NOTE | 2022-03-20 17:13 | PC.NURSE ---
pt and family updated on plan of care
--- NOTE | 2022-03-20 17:37 | PC.NURSE ---
Tech obtained 2nd TROP
[2022-03-20 18:08] LABS: Troponin I 0.07 ng/ml (0.00-0.034)
--- NOTE | 2022-03-20 18:19 | PC.NURSE ---
dr soha hall
--- NOTE | 2022-03-20 18:21 | PC.NURSE ---
pt and family updated on plan of care
--- NOTE | 2022-03-20 18:26 | PC.NURSE ---
TROY PURCELL speaking with Dr. Dhillon
--- NOTE | 2022-03-20 18:58 | PC.NURSE ---
called [facility] for transport states pt does not qualify for transport because pt can sit in a wheelchair
== END 2022-03-20 19:42 | disposition home or self-care (01) ==
PROVIDERS: Emergency Provider Emergency Medicine; PCP Family Medicine
DX: R53.1 Weakness (principal); R09.81 Nasal congestion; R09.89 Other specified symptoms and signs involving the circulatory and respiratory systems; Z20.822 Contact with and (suspected) exposure to COVID-19
CPT/HCPCS: 71045; 80053; 80162; 84484; 85025; 93005; 99284; C9803; U0003; U0005

== ENCOUNTER 2022-04-20 17:24 | Observation (INO) | payer MEDICARE, OTHER, SELFPAY ==
[2022-04-20] VITALS (11 sets, daily range): BP systolic 112–147; BP diastolic 56–76; PULSE 74–93; RESP 16–22; TEMP 36.9–37.3; O2SAT 92–99; BMI 26.6; BMI 25.4
--- NOTE | 2022-04-20 17:48 | ECG_ITS ---
APPROVED REPORT Exam: Resting ECG HR:84 bpm ECG Measurements Heart Rate 84 AXES QRSd 169 QRS 238 QT 438 T 70 QTc 479 Conclusion ELECTRONIC VENTRICULAR PACEMAKER ABNORMAL RHYTHM ECG UNCONFIRMED REPORT Electronically signed by : Gilberto Marquez MD 04/21/2022 21:23:56
--- NOTE | 2022-04-20 17:48 | XR_ITS ---
PROCEDURE INFORMATION: Exam: XR Chest Exam date and time: 04/20/2022 6:03 PM Age: 81 years old Clinical indication: Shortness of breath; Additional info: SOA TECHNIQUE: Imaging protocol: Radiologic exam of the chest. Views: 1 view. COMPARISON: CR XR CHEST PORTABLE 03/20/2022 2:13 PM FINDINGS: Tubes, catheters and devices: AICD in place with leads in unchanged position. Lungs: Passive atelectasis in the right lung base. No acute airspace consolidation. No appreciable pulmonary edema. Pleural spaces: Moderate right pleural effusion, not significantly changed from 03/20/2022 chest radiograph. No pneumothorax. Heart/Mediastinum: Cardiomediastinal silhouette is unchanged. Bones/joints: No evidence of acute osseous abnormality. Chronic left rib fracture deformities. IMPRESSION: 1. No acute findings. 2. Moderate right pleural effusion with passive atelectasis in the right lung base, not significantly changed from 03/20/2022 chest radiograph.
[2022-04-20 18:06] LABS: Basophils % 0.4 % (0.1-2.0); Eosinophils # 0.1 K/mm3 (0.0-0.4); Eosinophils % 0.9 % (0.1-12.0); Hematocrit 35.8 % (42.0-52.0); Hemoglobin 11.2 g/dL (14.1-18.0); Lymphocytes # 1.2 K/mm3 (0.7-4.5); Lymphocytes % 13.8 % (10-50); Mean Corpuscular HGB Conc 31.2 g/dL (31.8-35.4); Mean Corpuscular Hemoglobin 30.9 pg (27.0-31.2); Mean Corpuscular Volume 99.1 fl (80-94); Mean Platelet Volume 9.5 fl (7.4-10.4); Monocytes # 0.4 K/mm3 (0.1-1.0); Monocytes % 5.1 % (1.7-9.3); Neutrophils # 6.8 K/mm3 (1.8-7.8); Neutrophils % 79.9 % (37.0-80.0); Platelet Count 335 K/mm3 (142-424); Red Blood Count 3.61 M/mm3 (4.60-6.20); Red Cell Distribution Width 15.3 % (11.5-17.5); White Blood Count 8.5 K/mm3 (4.8-10.8)
[2022-04-20 18:09] LABS: Chloride 91 mmol/L (98-107); Potassium 3.8 mmoL/L (3.5-5.1); Sodium 140 mmol/L (136-145)
[2022-04-20 18:11] LABS: Blood Urea Nitrogen 16 mg/dl (9-20); Creatinine Clearance Estimated 65 mL/min (50-200); Estimated Glomerular Filt Rate 81 ml/min (>60); GFR (African American) 98 ML/MIN (>60)
[2022-04-20 18:12] LABS: Calcium 8.3 mg/dl (8.4-10.2); Glucose 142 mg/dl (74-100)
--- NOTE | 2022-04-20 18:22 | HMH.EDGENADL ---
Discharge Plan Disposition Patient Disposition: Admitted As Inpatient Condition: Good Clinical Impressions Clinical Impression: Acute and chronic respiratory failure with hypoxia, Pleural effusion on right, Acute exacerbation of CHF (congestive heart failure) Discharge ED Provider: Marlena Spivey General Adult HPI General Chief complaint: Recheck/Abnormal Lab/Rx Stated complaint: soa Time Seen by Provider: 04/20/22 17:26 Mode of Arrival: EMS Source of Information: Patient Limitations: Physical Limitations Description of Symptoms (Recalled from ER Triage Doc. by RN): pt states that his caregiver said he looked to be breathing harder, pt denies any issues at this time and states he feels the same History of Present Illness HPI narrative: This patient is an 81-year-old male with a history of CVA with residual left-sided deficits, type 2 diabetes, CAD, CKD, CHF, A. fib, CKD, hyperlipidemia, and right bundle branch block presenting to the emergency department at the behest of his caregiver for evaluation of increased work of breathing. Patient denies any complaints at this time, stating that he is not have any chest discomfort and does not feel short of air. According to the patient's , the caregiver noted that he had low oxygen saturations at home and put him on 2 L nasal cannula 2 days ago. He has persistently required this since then. He does not typically wear oxygen at home. They deny any other symptoms, such as fever, chills, mental status changes, subjective shortness of air, chest pain, abdominal pain, nausea, vomiting, changes in bowel movements, or other concerns. They do note that the patient has had a slight cough. His caregiver reports concerns that he is aspirating with eating and drinking, and he is due to have a swallow study soon. Related Data Home Medications Medication Instructions Recorded Confirmed acetaminophen 325 mg capsule 650 mg PO Q6HP PRN Mild 11/23/19 03/20/22 (Tylenol) Pain,Fever,Headache digoxin 125 mcg (0.125 mg) tablet 125 mcg PO DAILY HEART RATE 04/19/21 03/20/22 atorvastatin 40 mg tablet 40 mg PO DAILY Cholesterol 10/21/21 03/20/22 dantrolene 25 mg capsule 25 mg PO TID muscle relaxer 10/21/21 03/20/22 metformin 500 mg tablet 500 mg PO DAILY Diabetes 10/21/21 03/20/22 multivitamin with minerals (Jae 1 tab PO DAILY Supplement 10/21/21 03/20/22 Multiple/Chelated Mineral tablet) polyethylene glycol 3350 17 17 g PO DAILY CONSTIPATION 10/21/21 03/20/22 gram/dose oral powder (Miralax) ferrous sulfate 325 mg (65 mg 325 mg PO DAILY Supplement 12/09/21 03/20/22 iron) tablet sertraline 50 mg tablet 50 mg PO DAILY MOOD 12/10/21 03/20/22 alogliptin 25 mg tablet 25 mg PO DAILY Diabetes 03/20/22 03/20/22 rivaroxaban 15 mg tablet (Xarelto) 15 mg PO DAILY Blood thinner 03/20/22 03/20/22 trazodone 50 mg tablet 50 mg PO HS sleep 03/20/22 03/20/22 Allergies Allergy/AdvReac Type Severity Reaction Status Date / Time apixaban [From ELIQUIS] Allergy Mild I-RASH Verified 10/21/21 09:37 doxycycline [DOXYCYCLINE] Allergy Mild MCINTYRE Verified 10/21/21 09:37 SKIN, BLISTERS insulin aspart Allergy Mild I-RASH Verified 10/21/21 09:37 [INSULIN ASPART] Insulins Allergy Mild Verified 10/21/21 09:37 latex [LATEX] Allergy Mild I-RASH Verified 10/21/21 09:37 lovastatin [LOVASTATIN] Allergy Mild I-RASH Verified 10/21/21 09:37 oxycodone [From PERCOCET] Allergy Mild I-RASH Verified 10/21/21 09:37 pantoprazole [From PROTONIX] Allergy Mild I-RASH Verified 10/21/21 09:37 pioglitazone Allergy Mild I-RASH Verified 10/21/21 09:37 [From ACTOPLUS MET] sulfamethoxazole Allergy Mild I-RASH Verified 10/21/21 09:37 [From SEPTRA] trimethoprim [From SEPTRA] Allergy Mild I-RASH Verified 10/21/21 09:37 ferrous gluconate AdvReac Rash Verified 10/21/21 09:37 [facility] Medical History Angina, class III Anticoagulant long-term use CAD (coronary artery di
[2022-04-20 18:24] LABS: Anion Gap 11.8 mEq/L (5-15); Carbon Dioxide 41 mmol/L (22.0-30.0)
--- NOTE | 2022-04-20 18:37 | PC.NURSE ---
jimmy in respiratory is aware of vbg
[2022-04-20 18:49] LABS: VBG Base Excess 11.8 mmol/L (-2.4-2.3); VBG Oxygen Saturation 85.1 % (50-70); VBG PCO2 54.9 mmol/L (35-51); VBG PH 7.44 mmol/L (7.31-7.41); VBG PO2 48.3 mmol/L (28-40); VBG Total CO2 37.7 mmol/L (23-27)
[2022-04-20 18:56] LABS: NT Pro Brain Natriuretic Pep. 6340 pg/mL (0-450)
[2022-04-20 19:33] LABS: INR 1.01 (0.9-1.1); Prothrombin Time 10.9 seconds (10.1-12.5)
[2022-04-20 20:12] LABS: Coronavirus 19, PCR Not Detected (NotDetected); Influenza A, PCR Not Detected (NotDetected); Influenza B, PCR Not Detected (NotDetected)
--- NOTE | 2022-04-20 21:05 | PC.NURSE ---
PT ARRIVED TO FLOOR VIA STRETCHER @ THIS TIME.
[2022-04-21] VITALS: BP 128/69; PULSE 70; RESP 20; TEMP 37.3; O2SAT 100
[2022-04-21 04:00] VITALS: BP 130/61; PULSE 70; RESP 18; TEMP 37.1; O2SAT 100
--- NOTE | 2022-04-21 04:54 | PC.NURSE ---
pt has rested t/o shift, has refused to be turned, does shift some in the bed on his own, has been on 2L NC with O2 sats 97-100, O2 turned down to 1L, is A&Ox4, has not had complaints of SOA or pain, caregiver remains at bedside
[2022-04-21 05:30] VITALS: BMI 25.4
[2022-04-21 05:47] LABS: POC Glucose,Bedside 94 (70-110)
[2022-04-21 06:10] LABS: Basophils # 0.1 K/mm3 (0-0.2); Basophils % 0.6 % (0.1-2.0); Eosinophils # 0.1 K/mm3 (0.0-0.4); Eosinophils % 0.9 % (0.1-12.0); Hematocrit 31.9 % (42.0-52.0); Hemoglobin 9.7 g/dL (14.1-18.0); Lymphocytes # 1.7 K/mm3 (0.7-4.5); Lymphocytes % 20.3 % (10-50); Mean Corpuscular HGB Conc 30.5 g/dL (31.8-35.4); Mean Corpuscular Hemoglobin 30.1 pg (27.0-31.2); Mean Corpuscular Volume 98.7 fl (80-94); Mean Platelet Volume 9.6 fl (7.4-10.4); Monocytes # 0.6 K/mm3 (0.1-1.0); Monocytes % 7.3 % (1.7-9.3); Neutrophils # 5.8 K/mm3 (1.8-7.8); Neutrophils % 70.9 % (37.0-80.0); Platelet Count 276 K/mm3 (142-424); Red Blood Count 3.23 M/mm3 (4.60-6.20); Red Cell Distribution Width 15.2 % (11.5-17.5); White Blood Count 8.2 K/mm3 (4.8-10.8)
[2022-04-21 06:20] LABS: Chloride 93 mmol/L (98-107); Potassium 4.5 mmoL/L (3.5-5.1); Sodium 139 mmol/L (136-145)
[2022-04-21 06:23] LABS: Blood Urea Nitrogen 18 mg/dl (9-20); Creatinine Clearance Estimated 62 mL/min (50-200); Estimated Glomerular Filt Rate 81 ml/min (>60); GFR (African American) 98 ML/MIN (>60)
[2022-04-21 06:24] LABS: Glucose 100 mg/dl (74-100)
[2022-04-21 06:31] LABS: Anion Gap 10.5 mEq/L (5-15); Carbon Dioxide 40 mmol/L (22.0-30.0)
[2022-04-21 08:00] VITALS: BP 148/68; PULSE 72; RESP 18; TEMP 36.3; O2SAT 100
--- NOTE | 2022-04-21 08:00 | HMH.PHAINT1 ---
Pharmacy Intervention Comments: Home medication reconciliation completed using outpatient pharmacy list.
--- NOTE | 2022-04-21 09:34 | FL_ITS ---
FINAL REPORT CLINICAL HISTORY: .1.54 fluoro time dose 7.89mGy FINDINGS: MODIFIED BARIUM SWALLOW HISTORY: Dysphagia. FINDINGS: Fluoroscopy was provided for the speech pathologist to evaluate the swallowing mechanism. The patient was given several different consistencies of barium while the swallow was visualized fluoroscopically. The report of the speech pathologist should be consulted prior to making dietary decisions. IMPRESSION: Modified barium swallow under fluoroscopic guidance. Please see speech pathologist's report for further details and dietary recommendations. Fluoroscopy time was 1 minute, 54 seconds Radiation dose: 7.89 mGy A total of 12 cine runs were saved. Reviewed, Interpreted and Dictated by Neto Cintron III, MD Transcribed by Kya Capps PA-C Authenticated and [facility]
--- NOTE | 2022-04-21 10:21 | EXP.HP ---
History of Present Illness *Admission Date: 04/20/22 *Reason for visit:: Difficulty breathing *History of present illness: Mr. Hernadez is an 81 year old patient of Dr. So who presented to [facility] ER yesterday accompanied by a tire care manager, who reported patient had been having difficulties with increased shortness of breath, hypoxia and difficulty swallowing. His O2 sat was noted to be low a few days ago at home and supplemental oxygen was initiated. He has been using it continuously since. He has not had fever or productive cough. He was scheduled for an outpatient modified barium swallow in 2 days. Pt has a history of CVA, COPD, CAD and CHF. [facility] Medical History (Updated 04/21/22 @ 13:31 by Torin Jonas MD) Angina, class III Anticoagulant long-term use CAD (coronary artery disease) Chest pain Chronic a-fib Chronic atrial fibrillation with RVR CKD (chronic kidney disease) Congestive heart failure Dyspnea Exertional dyspnea Hemiparesis following cerebrovascular accident (CVA) HHD (hypertensive heart disease) HLD (hyperlipidemia) Numbness NYHA class 3 acute on chronic systolic heart failure On anticoagulant therapy Other forms of angina pectoris PAD (peripheral artery disease) DAVID (renal artery stenosis) Typical angina Surgical History (Updated 04/21/22 @ 13:28 by Torin Jonas MD) H/O umbilical hernia repair History of permanent cardiac pacemaker placement History of total left knee replacement History of total right knee replacement S/P CABG (coronary artery bypass graft) Stented coronary artery Family History (Updated 04/21/22 @ 13:28 by Toirn Jonas MD) Coronary artery disease Social History (Updated 04/20/22 @ 22:28 by Sonya Chávez RN) Smoking Status: Never smoker second hand exposure: No alcohol intake: never counseling provided: none substance use type: denies use current occupational status: retired Travel in the last 8 weeks: None household members: spouse housing: house current occupational exposures/hazards: No caffeine: Yes Review of Systems Constitutional Constitutional: Denies chills and Denies fever(s) Eyes Eyes: Denies change in vision ENT Ears, Nose, Mouth, and Throat: Denies abnormal hearing and Denies dizziness *Cardiovascular Cardiovascular: Denies chest pain *Respiratory Respiratory: Reports as per HPI *Gastrointestinal Gastrointestinal: Denies nausea and Denies vomiting *Genitourinary Genitourinary: Denies difficulty urinating *Musculoskeletal Musculoskeletal: Denies myalgias Integumentary/Breasts Skin/Breast: Denies rash *Neurologic Neurologic: Denies abnormal hearing and Denies dizziness Meds Home Medications and Allergies Home Medications Medication Instructions Recorded Confirmed Type acetaminophen 325 mg capsule 650 mg PO Q6HP PRN Mild 11/23/19 04/20/22 History (Tylenol) Pain,Fever,Headache digoxin 125 mcg (0.125 mg) tablet 125 mcg PO DAILY HEART RATE 04/19/21 04/20/22 History atorvastatin 40 mg tablet 40 mg PO DAILY Cholesterol 10/21/21 04/20/22 History metformin 500 mg tablet 500 mg PO DAILY Diabetes 10/21/21 04/20/22 History multivitamin with minerals (Jae 1 tab PO DAILY Supplement 10/21/21 04/20/22 History Multiple/Chelated Mineral tablet) polyethylene glycol 3350 17 17 g PO DAILY CONSTIPATION 10/21/21 04/20/22 History gram/dose oral powder (Miralax) ferrous sulfate 325 mg (65 mg 325 mg PO DAILY Supplement 12/09/21 04/20/22 History iron) tablet sertraline 50 mg tablet 50 mg PO DAILY depression/anxiety 12/10/21 04/20/22 History alogliptin 25 mg tablet 25 mg PO DAILY Diabetes 03/20/22 04/20/22 History rivaroxaban 15 mg tablet (Xarelto) 15 mg PO DAILY Blood thinner 03/20/22 04/20/22 History trazodone 50 mg tablet 50 mg PO HS sleep 03/20/22 04/20/22 History furosemide 20 mg tablet 60 mg PO DAILY Edema 04/21/22 04/21/22 History levalbuterol HCl 1.25 mg/3 mL 1.25 mg inhalation TID shortness 04/21/22 04/21/22 History
[2022-04-21 11:02] VITALS: BMI 25.4
--- NOTE | 2022-04-21 14:17 | HMH.SLMBS2 ---
Speech & Language Evaluation Speech/Language Mod Barium Swallow Start: 04/21/22 09:34 Freq: ONCE Status: Complete Protocol: Document 04/21/22 14:01 CWEIGLQUIRINO (Rec: 04/21/22 14:17 CWEIKELLEN [id number]) General Information General Current Food Consistancy NPO Oxygen Status Nasal Cannula Facial Symmetry Symmetrical Ability to Follow Directions Good Communication Ability Moderate Impairment MBS Recommendations Diet Dietary Recommendations Mechanical Soft,Ground Meats, Honey Liquids Treatment/Strategies Strategy/Precaution Recommend Sitting Upright (90 deg), Liquids from Cup,Liquids from Spoon,Small Bites and Sips, Alternate Liquids/Solids Mod Barium Swallow Impressions Summary and Impressions Oral Phase Impression Mild Impairment Oral Phase Summary Mild oral dysphagia noted on MBSS. Mildly prolonged mastication with whole mechanical soft and pt required liquid wash to clear all material from the oral cavity. Given mild difficulty with mastication, pt would benefit from mechanical soft ground diet. Pharyngeal Phase Impression Moderate Impairment Pharyngeal Phase Summary Moderate pharyngeal dyaphagia. Ritesh aspiration of thin liquids via open cup was noted and pt was unable to produce a cough to clear aspirated material. It remained in the trachea for the remainder of the study, despite cues to cough or clear throat to clear . Trace aspiration was noted with trial of nectar thick liquids via open cup, which pt was again unable to clear. No penetration or aspiration was noted with trials of honey thick liquids, puree, or mechanical soft. TRIAL ATTORNEY recommending honey thick liquids. Speech/Language MBS Assessment/Goals/Plan Assessment Date of Evaluation: 04/21/22 Evaluation Type Initial Certification Assessment/Problems Pt is an 81 year old male presenting to [facility] with SOA,
--- NOTE | 2022-04-21 14:50 | DIET.NUTRFU ---
MANAGEMENT LIAISON completed MBSS today with recommendations of MSOFT/ground with honey thick liquids via spoon. Also recommended to alternate bites and sips, he had a hard time clearing items. He with need assistance/supervision with meals. Will continue to monitor meal intake to determine if additional supplements are needed.
[2022-04-21 16:00] VITALS: BP 136/64; PULSE 81; RESP 18; TEMP 36.7; O2SAT 96
--- NOTE | 2022-04-21 16:34 | PC.NURSE ---
patient has done okay this shift. has been on 1 l o2 will continue to wean as tolerated. frequent turns at patient request. oral care has been provided. diet ordered per speech therapy. tolerated the diet okay. no respiratory symptoms noted. family asking about cardiology consult. notified md, at this time it is not felt patient needs a cardiology consult, cardiology did state they didn't feel he needed to follow up with them at this time, defibrillator looked okay at last download. encouraged family and patient to ring out as needed. patient eager to discharge. no used to left arm patient states its broke .
[2022-04-21 19:49] VITALS: BP 131/63; PULSE 80; RESP 16; TEMP 36.8; O2SAT 97
[2022-04-21 20:00] VITALS: O2SAT 97
[2022-04-22 04:00] VITALS: BP 125/62; PULSE 81; RESP 19; TEMP 36.7; O2SAT 98
[2022-04-22 05:00] VITALS: BMI 25.4
[2022-04-22 06:18] LABS: POC Glucose,Bedside 86 (70-110)
[2022-04-22 08:00] VITALS: BP 154/75; PULSE 80; RESP 16; TEMP 36.8; O2SAT 98
--- NOTE | 2022-04-22 08:33 | EXP.PN ---
Subjective *Date: 04/22/22 *Time: 09:05 Interval history: Patient feels he is doing fine. He is wanting to know when he can go home. He ate satisfactory for breakfast. He did sleep some last night. He denies any pain. He states his breathing is doing okay. He remains on O2 at 1 L/min with good O2 sats. 98% this AM. Bowels have been moving. He did have a modified barium swallow yesterday and was seen by speech therapy. She noted mild impairment with mild oral dysphagia. She noted anaya aspiration Thin liquids via open cup. He was unable to produce a cough to clear aspirated material. Trace aspiration was noted with trial of nectar thick liquids via open cup. Patient again was unable to clear. She felt he would benefit from mechanical soft ground diet. Given results of MBS this patient would benefit from skilled speech therapy. Diet recommendations: Pur?ed with honey consistence liquids and with aspiration precautions. See note. Hemoglobin decreased from 11.2-9.7 this AM. Renal function is good and potassium is 4.5. Exam Data for Last 24 hours Vital signs and Labs for Last 24 Hours: Temp Pulse Resp BP Pulse Ox 98.0 F 81 19 125/62 98 04/22/22 04:00 04/22/22 04:00 04/22/22 04:00 04/22/22 04:00 04/22/22 04:00 Laboratory Results - last 24 hr 04/22/22 06:11: POC Glucose 86 I & O for Last 24 hours: Intake & Output 04/19/22 04/20/22 04/21/22 04/22/22 11:59 11:59 11:59 11:59 Intake Total 120 / 120 180 / 180 Output Total 250 / 250 Balance -130 / -130 180 / 180 Weight 172 lb 1.838 oz 171 lb 8 oz Constitutional Constitutional: no acute distress *Routine Respiratory Exam Respiratory: Present CTA bilaterally (Anteriorly); Absent respiratory distress or wheezes *Routine Cardiovascular Exam Cardiovascular: Present RRR *Routine Abdominal Exam Abdominal: Present soft and normoactive bowel sounds; Absent tenderness or distended *Routine Extremities Exam Extremities: Present edema (Trace bilateral lower leg. Edema of the left hand) *Routine Neurological Exam Neurological: Present alert and oriented X3; Absent normal speech (Speech is very soft and sometimes difficult to understand) Assessment and Plan *Assessment and plan (1) Acute and chronic respiratory failure with hypoxia: Status: Acute Category: Medical Code(s): J96.21 - Acute and chronic respiratory failure with hypoxia (2) Choking episode: Status: Acute Category: Medical Code(s): R09.89 - Other specified symptoms and signs involving the circulatory and respiratory systems (3) Biventricular cardiac pacemaker in situ: Status: Chronic Category: Medical Code(s): Z95.0 - Presence of cardiac pacemaker (4) Type 2 diabetes mellitus without complication, without long-term current use of insulin: Status: Chronic Category: Medical Code(s): E11.9 - Type 2 diabetes mellitus without complications (5) Shortness of Breath: Status: Chronic Category: Medical Code(s): R06.02 - Shortness of breath (6) Chronic a-fib: Status: Chronic Category: Medical Code(s): I48.2 - Chronic atrial fibrillation (7) Chronic anemia: Status: Acute Category: Medical Code(s): D64.9 - Anemia, unspecified (8) CAD (coronary artery disease): Status: Chronic Qualifiers: Associated angina: with other forms of angina Coronary Disease-Associated Artery/Lesion type: jamul artery [place] vs. transplanted heart: jamul heart Qualified Code(s): I25.118 - Atherosclerotic heart disease of jamul coronary artery with other forms of angina pectoris Category: Medical Code(s): I25.10 - Atherosclerotic heart disease of jamul coronary artery without angina pectoris (9) HHD (hypertensive heart disease): Status: Chronic Qualifiers: Heart failure chronicity: acute on chronic Heart failure pres
[2022-04-22 09:30] LABS: Reticulocyte % (Auto) 0.9 % (0.9-3.2)
[2022-04-22 09:35] LABS: Iron 136 ug/dL (49-181)
[2022-04-22 09:44] LABS: Total Iron Binding Capacity 162 ug/dL (261-462)
[2022-04-22 10:11] LABS: Ferritin 252 ng/ml (17.9-464)
[2022-04-22 10:23] LABS: Vitamin B12 812 pg/mL (239-931)
[2022-04-22 16:00] VITALS: BP 134/67; PULSE 83; RESP 21; TEMP 36.9; O2SAT 91
[2022-04-22 16:58] LABS: POC Glucose,Bedside 136 (70-110)
--- NOTE | 2022-04-22 18:06 | PC.NURSE ---
Pt was alert and oriented x3 most of the shift. This afternoon pt has became mildly confused. Family is at bedside and reorienting pt. He's been weaned to RA with oxygen sats measuring > 90%. Family is been at bedside and is supportive. Bed is locked and in the lowest position, call light is within reach.
--- NOTE | 2022-04-22 19:19 | PC.NURSE ---
Notified senior telecommunications technician (Dr Marquez) that pt has become mildly confused this afternoon and family is requesting urinalysis; Urinalysis ordered
--- NOTE | 2022-04-22 19:34 | PC.NURSE ---
Dr Jonas notified of pt's confusion and familys request for ua
[2022-04-22 20:00] VITALS: BP 142/70; PULSE 80; RESP 16; TEMP 36.6; O2SAT 98
[2022-04-22 20:13] LABS: Microscopic, Urine URINE MICROSCOPIC (MICROSCOPIC)
[2022-04-22 20:27] LABS: Appearance,Urine CLEAR (Clear); Blood, Urine Negative (Negative); Color,Urine YELLOW (Yellow); Glucose,Urine (UA) Negative (Negative); Ketones,Urine Negative (Negative); Leukocyte Esterase,Urine Negative (Negative); Nitrate,Urine Negative (Negative); PH,Urine 5.5 (5.0-8.5); Protein,Urine 1+ (Negative); Specific Gravity, Urine >= 1.030 (1.005-1.030); Urobilinogen,Urine 0.2 EU/dl (0.2)
[2022-04-22 20:41] LABS: Bilirubin,Urine 1+ (Negative)
[2022-04-22 20:42] LABS: Amorphous Sediment,Urine 2+ /lpf; Bacteria,Urine 2+ /lpf
[2022-04-22 21:56] LABS: POC Glucose,Bedside 148 (70-110)
[2022-04-23 04:00] VITALS: BP 137/71; PULSE 85; RESP 16; TEMP 36.6; O2SAT 98
[2022-04-23 05:00] VITALS: BMI 25.2
[2022-04-23 06:13] LABS: POC Glucose,Bedside 105 (70-110)
--- NOTE | 2022-04-23 06:19 | PC.NURSE ---
Pt has remained aox4 other then not being able to recall day of month or day of week. Pt was awake t/o majority of shift. Tolerating RA well with sats >90%. No c/o voiced to staff. Daughter at bedside. Call light within reach.
[2022-04-23 07:14] LABS: Chloride 94 mmol/L (98-107); Sodium 141 mmol/L (136-145)
[2022-04-23 07:15] LABS: Potassium 3.8 mmoL/L (3.5-5.1)
[2022-04-23 07:16] LABS: Basophils % 0.6 % (0.1-2.0); Eosinophils # 0.1 K/mm3 (0.0-0.4); Eosinophils % 1.8 % (0.1-12.0); Hematocrit 31.6 % (42.0-52.0); Hemoglobin 9.9 g/dL (14.1-18.0); Lymphocytes % 21.9 % (10-50); Mean Corpuscular HGB Conc 31.3 g/dL (31.8-35.4); Mean Corpuscular Hemoglobin 30.8 pg (27.0-31.2); Mean Corpuscular Volume 98.4 fl (80-94); Mean Platelet Volume 10.9 fl (7.4-10.4); Monocytes # 0.5 K/mm3 (0.1-1.0); Monocytes % 9.9 % (1.7-9.3); Neutrophils % 65.7 % (37.0-80.0); Platelet Count 241 K/mm3 (142-424); Red Blood Count 3.21 M/mm3 (4.60-6.20); Red Cell Distribution Width 15.6 % (11.5-17.5); White Blood Count 4.6 K/mm3 (4.8-10.8)
[2022-04-23 07:18] LABS: Blood Urea Nitrogen 15 mg/dl (9-20); Calcium 8.2 mg/dl (8.4-10.2); Creatinine Clearance Estimated 61 mL/min (50-200); Estimated Glomerular Filt Rate 81 ml/min (>60); GFR (African American) 98 ML/MIN (>60); Glucose 111 mg/dl (74-100)
[2022-04-23 07:24] LABS: Anion Gap 10.8 mEq/L (5-15); Carbon Dioxide 40 mmol/L (22.0-30.0)
[2022-04-23 08:00] VITALS: BP 130/55; PULSE 79; RESP 22; TEMP 36.3; O2SAT 99
[2022-04-23 08:01] LABS: ABG Base Excess 14.3 mmol/L (-2.4-2.3); ABG HCO3 38.1 mmhg (22.0-26.0); ABG Oxygen Saturation 95 % (90-100); ABG PH 7.46 mmol/L (7.35-7.45); ABG PO2 74.8 mmhg (80-100); ABG TCO2 39.8 mmhg (23-27)
[2022-04-23 08:04] LABS: Allen's Test Acceptable; Source Right Radial
[2022-04-23 08:06] LABS: ABG PCO2 54.3 mmhg (35.0-45.0)
--- NOTE | 2022-04-23 08:20 | EXP.PN ---
Subjective *Date: 04/23/22 *Time: 08:33 Interval history: Patient states he is somewhat short of breath. He was weaned from his O2 sats back on 1 L/min with good O2 sats. He feels like he is a little bit better. He has a legal analyst is at bedside and states he has been a little bit confused. He cannot remember much of yesterday. Apparently he did not get up in a chair. He did eat a little bit of breakfast. He denies choking on food/liquids. He has periodic nausea and no vomiting. He denies chest pain. H&H is stable with a 9.9 hemoglobin this morning. ABGs this morning show pH 7.46 PCO2 of 54.3 PO2 of 74.8. Renal function is normal. Iron is high at 83.9. B12 is normal at 812. Urinalysis shows 2+ bacteria. Exam Data for Last 24 hours Vital signs and Labs for Last 24 Hours: Temp Pulse Resp BP Pulse Ox 97.9 F 85 16 137/71 98 04/23/22 04:00 04/23/22 04:00 04/23/22 04:00 04/23/22 04:00 04/23/22 04:00 Laboratory Results - last 24 hr 04/22/22 09:15: Iron 136, TIBC 162 L, Iron Saturation 83.76233 H 04/22/22 09:15: Retic Count (auto) 0.9 04/22/22 09:15: Ferritin 252 04/22/22 09:15: Vitamin B12 812 04/22/22 16:43: POC Glucose 136 H 04/22/22 19:35: Urine Color Yellow, Urine Appearance Clear, Urine pH 5.5, Ur Specific [place] >= 1.030, Urine Protein 1+, Urine Glucose (UA) Negative, Urine Ketones Negative, Urine Blood Negative, Urine Nitrate Negative, Urine Bilirubin 1+ A, Urine Urobilinogen 0.2, Ur Leukocyte Esterase Negative, Urine RBC 3-5, Urine WBC 5-10, Ur Squamous Epith Cells 3-5, Amorphous Sediment 2+, Urine Bacteria 2+ 04/22/22 21:49: POC Glucose 148 H 04/23/22 06:04: POC Glucose 105 04/23/22 06:38: WBC 4.6 L D, RBC 3.21 L, Hgb 9.9 L, Hct 31.6 L, MCV 98.4 H, MCH 30.8, MCHC 31.3 L, RDW 15.6, Plt Count 241, MPV 10.9 H, Neut % (Auto) 65.7, Lymph % (Auto) 21.9, [place] % (Auto) 9.9 H, Eos % (Auto) 1.8, Baso % (Auto) 0.6, Neut # (Auto) 3.0, Lymph # (Auto) 1.0, [place] # (Auto) 0.5, Eos # (Auto) 0.1, Baso # (Auto) 0.0 04/23/22 06:38: Sodium 141, Potassium 3.8, Chloride 94 L, Carbon Dioxide 40 H, Anion Gap 10.8, BUN 15, Creatinine 0.90, Estimated Creat Clear 61, Estimated GFR 81, Est GFR ( Amer) 98, Glucose 111 H, Calcium 8.2 L 04/23/22 07:37: Specimen Source Right radial, O2 % 1 lpm nc, ABG pH 7.46 H, ABG pCO2 54.3 H, ABG pO2 74.8 L, ABG HCO3 38.1 H, ABG Total CO2 39.8 H, ABG O2 Saturation 95, ABG Base Excess 14.3 H, Cecil Test Acceptable I & O for Last 24 hours: Intake & Output 04/20/22 04/21/22 04/22/22 04/23/22 11:59 11:59 11:59 11:59 Intake Total 120 / 120 220 / 220 120 / 120 Output Total 250 / 250 0 / 0 Balance -130 / -130 220 / 220 120 / 120 Weight 172 lb 1.838 oz 171 lb 8 oz 170 lb 9.6 oz Constitutional Constitutional: no acute distress *Routine Respiratory Exam Respiratory: Present CTA bilaterally *Routine Cardiovascular Exam Cardiovascular: Present RRR *Routine Abdominal Exam Abdominal: Present soft and normoactive bowel sounds; Absent tenderness or distended *Routine Extremities Exam Extremities: Present edema (No leg edema. Some edema of the left hand.); Absent calf tenderness *Routine Neurological Exam Neurological: Present alert, oriented X3 and normal speech (Speech is stronger today.) Assessment and Plan *Assessment and plan (1) Acute and chronic respiratory failure with hypoxia: Status: Acute Category: Medical Code(s): J96.21 - Acute and chronic respiratory failure with hypoxia (2) Choking episode: Status: Acute Category: Medical Code(s): R09.89 - Other specified symptoms and signs involving the circulatory and respiratory systems (3) Biventricular cardiac pacemaker in situ: Status: Chronic Category: Medical Code(s): Z95.0 - Presence of cardiac pacemaker (4) Type 2 diabetes mellitus without complication, without long-term current use of insulin: Status: Chronic Category: Medical Code(s): E11.9 - Type 2 diabetes
--- NOTE | 2022-04-23 08:28 | EXP.ACUTE.PN ---
Subjective *Date: 04/23/22 *Time: 08:28 Interval history: Patient states he feels better today, had a little confusion last night, does not like thickened liquids. Medical Exam Vital signs and Labs for Last 24 Hours: Temp Pulse Resp BP Pulse Ox 97.9 F 85 16 137/71 98 04/23/22 04:00 04/23/22 04:00 04/23/22 04:00 04/23/22 04:00 04/23/22 04:00 Laboratory Results - last 24 hr 04/22/22 09:15: Iron 136, TIBC 162 L, Iron Saturation 83.44503 H 04/22/22 09:15: Retic Count (auto) 0.9 04/22/22 09:15: Ferritin 252 04/22/22 09:15: Vitamin B12 812 04/22/22 16:43: POC Glucose 136 H 04/22/22 19:35: Urine Color Yellow, Urine Appearance Clear, Urine pH 5.5, Ur Specific [place] >= 1.030, Urine Protein 1+, Urine Glucose (UA) Negative, Urine Ketones Negative, Urine Blood Negative, Urine Nitrate Negative, Urine Bilirubin 1+ A, Urine Urobilinogen 0.2, Ur Leukocyte Esterase Negative, Urine RBC 3-5, Urine WBC 5-10, Ur Squamous Epith Cells 3-5, Amorphous Sediment 2+, Urine Bacteria 2+ 04/22/22 21:49: POC Glucose 148 H 04/23/22 06:04: POC Glucose 105 04/23/22 06:38: WBC 4.6 L D, RBC 3.21 L, Hgb 9.9 L, Hct 31.6 L, MCV 98.4 H, MCH 30.8, MCHC 31.3 L, RDW 15.6, Plt Count 241, MPV 10.9 H, Neut % (Auto) 65.7, Lymph % (Auto) 21.9, [place] % (Auto) 9.9 H, Eos % (Auto) 1.8, Baso % (Auto) 0.6, Neut # (Auto) 3.0, Lymph # (Auto) 1.0, [place] # (Auto) 0.5, Eos # (Auto) 0.1, Baso # (Auto) 0.0 04/23/22 06:38: Sodium 141, Potassium 3.8, Chloride 94 L, Carbon Dioxide 40 H, Anion Gap 10.8, BUN 15, Creatinine 0.90, Estimated Creat Clear 61, Estimated GFR 81, Est GFR ( Amer) 98, Glucose 111 H, Calcium 8.2 L 04/23/22 07:37: Specimen Source Right radial, O2 % 1 lpm nc, ABG pH 7.46 H, ABG pCO2 54.3 H, ABG pO2 74.8 L, ABG HCO3 38.1 H, ABG Total CO2 39.8 H, ABG O2 Saturation 95, ABG Base Excess 14.3 H, Cecil Test Acceptable I & O for Labs for Last 24 Hours: Intake & Output 04/20/22 04/21/22 04/22/22 04/23/22 23:59 23:59 23:59 23:59 Intake Total 300 / 300 160 / 160 Output Total 250 / 250 0 / 0 0 / 0 Balance -250 / -250 300 / 300 160 / 160 0 / 0 Weight 172 lb 1 oz 172 lb 1.838 oz 171 lb 8 oz 170 lb 9.6 oz Constitutional: Present no acute distress and chronically ill appearing Respiratory: Present decreased breath sounds (in bases); Absent wheezes or crackles Cardiac: Present Reg Rate and Rhythm GI: Present soft; Absent tenderness Assessment and Plan *Assessment and plan (1) Acute and chronic respiratory failure with hypoxia: Status: Acute Category: Medical Code(s): J96.21 - Acute and chronic respiratory failure with hypoxia (2) Choking episode: Status: Acute Category: Medical Code(s): R09.89 - Other specified symptoms and signs involving the circulatory and respiratory systems (3) Biventricular cardiac pacemaker in situ: Status: Chronic Category: Medical Code(s): Z95.0 - Presence of cardiac pacemaker (4) Type 2 diabetes mellitus without complication, without long-term current use of insulin: Status: Chronic Category: Medical Code(s): E11.9 - Type 2 diabetes mellitus without complications (5) Shortness of Breath: Status: Chronic Category: Medical Code(s): R06.02 - Shortness of breath (6) Chronic a-fib: Status: Chronic Category: Medical Code(s): I48.2 - Chronic atrial fibrillation (7) Chronic anemia: Status: Acute Category: Medical Code(s): D64.9 - Anemia, unspecified (8) CAD (coronary artery disease): Status: Chronic Qualifiers: Coronary Disease-Associated Artery/Lesion type: [place] artery [place] vs. transplanted heart: [place] heart Associated angina: with other forms of angina Qualified Code(s): I25.118 - Atherosclerotic heart disease of [place] coronary artery with other forms of angina pectoris Category: Medical Code(s): I25.10 - Atherosclerotic heart disease of [place] coronary artery
--- NOTE | 2022-04-23 10:52 | DIET.NUTRFU ---
RD consulted during rounds to review discharge diet prior to discharging today. Patient was evaluated during stay by RED CROSS WORKER who recommended MSOFT with honey thick liquids. Provide handout and reviewed what foods to avoid along with what foods needed to be thickened and what thickener to buy. Patient expressed he did not like the honey thick liquids and wanted some ice cream, encouraged him to eat desserts that would not require thickener like yogurt, custard or pudding. present during interview and she was considered about his wt loss already and now this new diet. Encouraged him to drink supplements for additional calories and protein,but would still need to be thickened. was still concerned about transport home, wants to go by ambulance, nursing aware.
[2022-04-23 15:20] LABS: Folate, Hemolysate >620.0 ng/mL (Not Estab.); Hematocrit 31.7 % (37.5-51.0)
--- NOTE | 2022-04-24 13:45 | CARE MANAGER ---
Spoke with patient care coordinator (Meme) and she states that Hospice is coming to see the patient today. New medications were picked up. No needs at this time.
--- NOTE | 2022-04-24 15:11 | EXP.DC.SUM ---
General Admission date:: 04/20/22 Discharge date: 04/23/22 HPI HPI HPI: Mr. Hernadez is an 81 year old patient of Dr. Dhillon's who presented to [facility] ER yesterday accompanied by a manager care, who reported patient had been having difficulties with increased shortness of breath, hypoxia and difficulty swallowing. His O2 sat was noted to be low a few days ago at home and supplemental oxygen was initiated. He has been using it continuously since. He has not had fever or productive cough. He was scheduled for an outpatient modified barium swallow in 2 days. Pt has a history of CVA, COPD, CAD and CHF. Hospital Course Hospital Course Hospital Course: The patient was admitted and started on antibiotics. His chest x-ray showed a moderate right pleural effusion with passive atelectasis in the right lung. By 04/22/2022, he was feeling better. He did have a modified barium swallow and was seen by speech therapy. There was noted to be mild impairment with mild oral dysphagia. The speech therapist noted anaya aspiration with thin liquids and trace aspiration with a trial of nectar thick liquids. She felt he would benefit from a mechanical soft ground diet and skilled speech therapy. She recommended a diet of pur?ed with honey consistency liquids and aspiration precautions. The patient was anemic and anemia studies were ordered. He had some periodic nausea but no vomiting. He denied choking on his new diet. His H&H did initially decrease but then stabilized. He was continued on speech therapy. By 04/23/2022, it was felt he was okay to discharge home with supplemental oxygen, steroids, antibiotics, diet changes, and neb treatments. He will follow-up by phone with Dr. Dhillon in 5 to 6 days. Exam Data for Last 24 hours Vital signs and Labs for Last 24 Hours: Temp Pulse Resp BP Pulse Ox 97.4 F L 79 22 130/55 L 99 04/23/22 08:00 04/23/22 08:00 04/23/22 08:00 04/23/22 08:00 04/23/22 08:00 Laboratory Results - last 24 hr 04/22/22 10:10: Hct (Send Out) 31.7 L, Folate Hemolysate >620.0, RBC Folate >1956 I & O for Last 24 hours: Intake & Output 04/22/22 04/23/22 04/24/22 10/21/22 11:59 11:59 11:59 11:59 Intake Total 220 / 220 240 / 240 Output Total 0 / 0 Balance 220 / 220 240 / 240 Weight 171 lb 8 oz 170 lb 9.6 oz Microbiology Reports for the Last 24 Hours: Microbiology 04/22/22 19:35 Urine,Clean Catch Urine Culture - Preliminary NO GROWTH AFTER 24 HOURS Narrative: Constitutional Constitutional: no acute distress and chronically ill appearing *Routine HEENT Exam Head: Present normocephalic Eye: Present EOMI and PERRL ENT: Present mucous membranes moist *Routine Neck Exam Neck: Present supple; Absent lymphadenopathy *Routine Respiratory Exam Respiratory: Present decreased breath sounds (in the bases, good air movement overall) *Routine Cardiovascular Exam Cardiovascular: Present irregularly irregular *Routine Abdominal Exam Abdominal: Present soft and normoactive bowel sounds; Absent tenderness *Routine Rectal Exam Rectal:: deferred *Routine Genitalia Exam Genitalia:: deferred *Routine Extremities Exam Extremities: Absent cyanosis, clubbing or edema *Routine Skin Exam Skin: Present warm; Absent rash *Routine Neurological Exam Neurological: Present alert Results Data Completed and Pending Labs on day of discharge: Labs from last 24 hours 04/22/22 10:10 Hct (Send Out) 31.7 L Folate Hemolysate >620.0 RBC Folate >1956 Preliminary micro results at discharge 04/22/22 19:35 Urine Culture - Preliminary Urine,Clean Catch NO GROWTH AFTER 24 HOURS DS: Diagnosis Discharge Diagnosis (1) Acute and chronic respiratory failure with hypoxia: Status: Acute (2) Choking episode: Status: Acute (3) Biventricular cardiac pacemaker in situ: Status: Chronic (4) Type 2 diabetes mellitus without complication, without long-ter
[2022-04-24 22:08] LABS: Zinc 67 ug/dL (44-115)
== END 2022-04-23 14:25 | disposition home or self-care (01) ==
LOC: ER 19:32 → 2ND 19:49
PROVIDERS: Internal Medicine Adolescent Medicine; Nurse Practitioner Family; Admitting Provider Family Medicine; Emergency Provider Emergency Medicine; PCP Family Medicine; Visit Provider Family Medicine
DX: J96.21 Acute and chronic respiratory failure with hypoxia (principal); E11.9 Type 2 diabetes mellitus without complications; D64.9 Anemia, unspecified; I25.118 Atherosclerotic heart disease of native coronary artery with other forms of angina pectoris; E46 Unspecified protein-calorie malnutrition; I11.0 Hypertensive heart disease with heart failure; I50.43 Acute on chronic combined systolic (congestive) and diastolic (congestive) heart failure; Z79.899 Other long term (current) drug therapy; Z68.25 Body mass index [BMI] 25.0-25.9, adult; Z79.01 Long term (current) use of anticoagulants; Z79.4 Long term (current) use of insulin; I48.20 Chronic atrial fibrillation, unspecified
CPT/HCPCS: G0378; 36415; 70371; 71045; 80048; 81001; 82607; 82728; 82747; 82803; 82962; 83540; 83550; 83880; 84630; 85014; 85025; 85044; 85610; 87086; 87088; 87186; 92526; 92611; 93005; 99285; C9803; J0456; J0696; J2405; U0003; U0005

== ENCOUNTER → 2022-05-19 17:29 | Outpatient (CLI) | payer OTHER, MEDICARE, SELFPAY ==
[2022-05-19 17:50] LABS: Microscopic, Urine URINE MICROSCOPIC (MICROSCOPIC)
[2022-05-19 18:03] LABS: Appearance,Urine CLEAR (Clear); Bilirubin,Urine Negative (Negative); Blood, Urine Negative (Negative); Color,Urine YELLOW (Yellow); Glucose,Urine (UA) Negative (Negative); Ketones,Urine Negative (Negative); Leukocyte Esterase,Urine Negative (Negative); Nitrate,Urine Negative (Negative); Protein,Urine Negative (Negative); Specific Gravity, Urine 1.025 (1.005-1.030); Urobilinogen,Urine 0.2 EU/dl (0.2)
[2022-05-19 18:22] LABS: Squamous Epithelial Cell,Urine Occasional #/hpf (0-5); WBC,Urine Occasional #/hpf (0-3)
== END ==
PROVIDERS: PCP Family Medicine; Visit Provider Family Medicine Hospice and Palliative Medicine
DX: N39.0 Urinary tract infection, site not specified (principal)
CPT/HCPCS: 81001